=== PATIENT | female | born 1945 | race Caucasian/White ===

== ENCOUNTER 2017-06-03 14:23 | Inpatient (IN) | payer MEDICAID, MEDICARE, SELFPAY ==
[2017-06-03 14:26] VITALS: BP 150/87; PULSE 98; RESP 18; TEMP 37.8; O2SAT 98; BMI 35.2
--- NOTE | 2017-06-03 15:12 | HMH.EDGENADL ---
ED Disposition Clinical Impression: Cellulitis of toe of right foot Chronic renal disease Qualifiers: Chronic kidney disease stage: stage 3 (moderate) Qualified Code(s): N18.3 - Chronic kidney disease, stage 3 (moderate) Disposition: Admitted as Observation Condition on Discharge: Good - Critical Care Critical Care Time: Yes Attestation: On , the high probability of a clinically significant, sudden or life threatening deterioration of the following system(s) required my full and direct attention, intervention and personal management. The time I documented below is in addition to time spent performing reported procedures but includes the following listed in this critical care notation. Total Critical Care Time: 10 Vital system(s) involved:: Circulatory Failure, Renal Failure, Shock (Septic) My critical care processes included: Assessment & monitoring of V/S, Initial and Re-exams, Data Review/Interpretation, Coordinating Care, Medication Orders and management, Documentation Medical Decision Making Vital Signs: 06/03/17 14:26 Temperature 100.1 F H Temperature Source Oral Pulse Rate [Right Radial] 98 H Respiratory Rate 18 Blood Pressure [Right Arm] 150/87 Blood Pressure Mean [Right Arm] 108 Blood Pressure Source [Right Arm] Automatic Cuff Blood Pressure Position [Right Arm] Supine 02 Sat by Pulse Oximetry 98 Oxygen Delivery Method Room Air - Lab Data Lab results reviewed: Yes: I reviewed the patient's lab results. Lab Results 06/03/17 15:25: WBC 8.5, RBC 4.73, Hgb 12.3, Hct 38.8, MCV 81.9, MCH 26.1 L, MCHC 31.8, RDW 14.1, Plt Count 140 L, MPV 8.8, Neut % (Auto) 88.4 H, Lymph % (Auto) 7.4 L, [place] % (Auto) 3.4, Eos % (Auto) 0.5, Baso % (Auto) 0.2, Neut # (Auto) 7.6, Lymph # (Auto) 0.6 L, [place] # (Auto) 0.3, Eos # (Auto) 0.1, Baso # (Auto) 0.0, Total Counted 100, Neutrophils % (Manual) 74, Band Neutrophils % 5.0, Lymphocytes % (Manual) 9 L, Monocytes % (Manual) 11 H, Metamyelocytes % 1.0, Platelet Estimate Normal, RBC Morphology Normal 06/03/17 15:25: Sodium 134 L, Potassium 5.5 H, Chloride 103, Carbon Dioxide 18 L, Anion Gap 18.5 H, BUN 45 H, Creatinine 3.32 H, Estimated Creat Clear 27, Estimated GFR 14 L*, Est GFR ( Amer) 17 L*, Glucose 330 H, Calcium 8.9, Total Bilirubin 0.5, AST 36, ALT 23, Alkaline Phosphatase 257 H, C-Reactive Protein 3.8 H, Total Protein 7.0, Albumin 2.6 L, Globulin 4.4 H, Albumin/Globulin Ratio 0.6 L 06/03/17 15:25: Lactic Acid 1.5 06/03/17 16:18: Influenza Type A Ag Negative, Influenza Type B Ag Positive Result diagrams: 06/03/17 15:25 06/03/17 15:25 Orders (Tests/Meds): ED MEDICATIONS Generic Name Dose Route Start Last Admin Trade Name Freq PRN Reason Stop Dose Admin Miscellaneous 1 each 06/03/17 16:45 Vancomycin Consult Request NOTAPPLIC 07/03/17 16:44 CONSULT PHARMACY PABLO Discontinued Medications Generic Name Dose Route Start Last Admin Trade Name Freq PRN Reason Stop Dose Admin Calcium Gluconate 1,000 mg 06/03/17 16:28 06/03/17 16:50 Calcium Gluconate 1gm/10ml (10%) Vial IVP 06/03/17 16:48 1,000 mg ONCE ONE Administration Calcium Gluconate 1,000 mg/ 60 mls @ 60 mls/hr 06/03/17 16:22 Sodium Chloride IV 06/03/17 16:23 ONCE ONE Ondansetron HCl 4 mg 06/03/17 15:19 06/03/17 15:32 Zofran 4mg/2ml Vial IV 06/03/17 15:20 4 mg ONCE ONE Administration Sodium Polystyrene Sulfonate 15 gm 06/03/17 16:23 06/03/17 16:50 Kayexalate 15gm/60ml Bottle PO 06/03/17 16:24 15 gm ONCE ONE Administration ORDERS Category Date Time Status US extremity LT limited Stat Exams 06/03/17 15:15 Ordered XR foot RT 2V Stat Exams 06/03/17 15:26 Ordered Urinalysis and Microscopic Stat Lab 06/03/17 15:15 Ordered Blood Culture Stat Micro 06/03/17 15:25 Received EKG Request [ECG Request by /Alberto] Stat Y 06/03/17 16:02 Ordered Patient has had a low GFR chronically. GFR was 12 on 03/31/2017. With a BUN of 37 and a creatin
--- NOTE | 2017-06-03 15:15 | ED_ITS ---
ED Disposition Clinical Impression: Cellulitis of toe of right foot Chronic renal disease Qualifiers: Chronic kidney disease stage: stage 3 (moderate) Qualified Code(s): N18.3 - Chronic kidney disease, stage 3 (moderate) Disposition: Admitted as Observation Condition on Discharge: Good - Critical Care Critical Care Time: Yes Attestation: On , the high probability of a clinically significant, sudden or life threatening deterioration of the following system(s) required my full and direct attention, intervention and personal management. The time I documented below is in addition to time spent performing reported procedures but includes the following listed in this critical care notation. Total Critical Care Time: 10 Vital system(s) involved:: Circulatory Failure, Renal Failure, Shock (Septic) My critical care processes included: Assessment & monitoring of V/S, Initial and Re-exams, Data Review/Interpretation, Coordinating Care, Medication Orders and management, Documentation Medical Decision Making Vital Signs: 06/03/17 14:26 Temperature 100.1 F H Temperature Source Oral Pulse Rate [Right Radial] 98 H Respiratory Rate 18 Blood Pressure [Right Arm] 150/87 Blood Pressure Mean [Right Arm] 108 Blood Pressure Source [Right Arm] Automatic Cuff Blood Pressure Position [Right Arm] Supine 02 Sat by Pulse Oximetry 98 Oxygen Delivery Method Room Air - Lab Data Lab results reviewed: Yes: I reviewed the patient's lab results. Lab Results 06/03/17 15:25: WBC 8.5, RBC 4.73, Hgb 12.3, Hct 38.8, MCV 81.9, MCH 26.1 L, MCHC 31.8, RDW 14.1, Plt Count 140 L, MPV 8.8, Neut % (Auto) 88.4 H, Lymph % ( Auto) 7.4 L, [place] % (Auto) 3.4, Eos % (Auto) 0.5, Baso % (Auto) 0.2, Neut # ( Auto) 7.6, Lymph # (Auto) 0.6 L, [place] # (Auto) 0.3, Eos # (Auto) 0.1, Baso # ( Auto) 0.0, Total Counted 100, Neutrophils % (Manual) 74, Band Neutrophils % 5.0 , Lymphocytes % (Manual) 9 L, Monocytes % (Manual) 11 H, Metamyelocytes % 1.0, Platelet Estimate Normal, RBC Morphology Normal 06/03/17 15:25: Sodium 134 L, Potassium 5.5 H, Chloride 103, Carbon Dioxide 18 L , Anion Gap 18.5 H, BUN 45 H, Creatinine 3.32 H, Estimated Creat Clear 27, Estimated GFR 14 L*, Est GFR ( Amer) 17 L*, Glucose 330 H, Calcium 8.9, Total Bilirubin 0.5, AST 36, ALT 23, Alkaline Phosphatase 257 H, C-Reactive Protein 3.8 H, Total Protein 7.0, Albumin 2.6 L, Globulin 4.4 H, Albumin/ Globulin Ratio 0.6 L 06/03/17 15:25: Lactic Acid 1.5 06/03/17 16:18: Influenza Type A Ag Negative, Influenza Type B Ag Positive Result diagrams: 06/03/17 15:25 06/03/17 15:25 Orders (Tests/Meds): ED MEDICATIONS Generic Name Dose Route Start Last Admin Trade Name Freq PRN Reason Stop Dose Admin Miscellaneous 1 each 06/03/17 16:45 Vancomycin Consult Request NOTAPPLIC 07/03/17 16:44 CONSULT PHARMACY PABLO Discontinued Medications Generic Name Dose Route Start Last Admin Trade Name Freq PRN Reason Stop Dose Admin Calcium Gluconate 1,000 mg 06/03/17 16:28 06/03/17 16:50 Calcium Gluconate 1gm/10ml (10%) Vial IVP 06/03/17 16:48 1,000 mg ONCE ONE Administration Calcium Gluconate 1,000 mg/ 60 mls @ 60 mls/hr 06/03/17 16:22 Sodium Chloride IV 06/03/17 16:23 ONCE ONE Ondansetron HCl 4 mg 06/03/17 15:19 06/03/17 15:32 Zofran 4mg/2ml Vial IV 06/03/17 15:20 4 mg ONCE ONE Admini
--- NOTE | 2017-06-03 15:26 | NVE_ITS ---
Venous Exam Indications: 729.5 Pain in limb. IMPRESSIONS 1. There is no evidence of significant Reflux. 2. No evidence of deep or superficial vein thrombosis involving the right lower extremity and left lower extremity. Common femorals not identified due to patients body habitus. Complete lower extremity venous duplex evaluation. Doppler flow study including spectral analysis, color and goodrich scale imaging. Location: Vascular laboratory. Patient status: Emergency department. Tables: Venous flow and imaging: + + + + + Location Overall Flow properties Comments + + + + + Right common femoral Not visualized + + + + + Right saphenofemoral Not junction visualized + + + + + Right profunda Not femoral visualized + + + + + Right femoral Patent Normal phasicity; spontaneous; normal augmentation; compressible; no reflux + + + + + Right greater Patent Normal phasicity; saphenous spontaneous; normal augmentation; compressible + + + + + Right popliteal Patent Normal phasicity; spontaneous; normal augmentation; compressible + + + + + Right posterior Patent Compressible only portion tibial visualized + + + + + Right peroneal Patent Compressible only portion visualized + + + + + Right gastrocnemius Patent Compressible + + + + + Right soleal Patent Compressible + + + + + Left common femoral Not visualized + + + + + Left saphenofemoral Not junction visualized
--- NOTE | 2017-06-03 15:26 | XR_ITS ---
XR foot RT 2V HISTORY: Right foot pain and erythema ITS.REASON: pain, erythema ORDERING PHYSICIAN: Willie Avalos MD PATIENT AGE: 72 years COMPARISON: None FINDINGS: There is flexion deformity of the first through fifth toes. There is mild lateral subluxation of the distal phalanx of the great toe by approximately 5 mm. A curvilinear calcific density is present at the distal and medial aspect of the proximal phalanx of the great toe consistent with an old avulsion injury. There is a small linear metallic foreign body which measures 5 mm along the medial aspect of the foot within the subcutaneous soft tissues. This is medial to the medial cuneiform. Soft tissue swelling involves the dorsal aspect of the midfoot. There is pes planus. IMPRESSION: 1. Hammertoe deformity of the toes with mild lateral subluxation of the distal phalanx of the great toe 2. Small linear metallic foreign body along the medial aspect of the midfoot. 3. Soft tissue swelling along the dorsal aspect of the midfoot. 4. Pes planus
[2017-06-03 15:39] LABS: Basophils % 0.2 % (0.1-2.0); Eosinophils # 0.1 K/mm3 (0.0-0.4); Eosinophils % 0.5 % (0.1-12.0); Hematocrit 38.8 % (37.0-47.0); Hemoglobin 12.3 g/dL (12.2-16.2); Lymphocytes # 0.6 K/mm3 (0.7-4.5); Lymphocytes % 7.4 K/mm3 (10-50); Mean Corpuscular HGB Conc 31.8 g/dL (31.8-35.4); Mean Corpuscular Hemoglobin 26.1 pg (27.0-31.2); Mean Corpuscular Volume 81.9 fl (81-99); Mean Platelet Volume 8.8 fl (7.4-10.4); Monocytes # 0.3 K/mm3 (0.1-1.0); Monocytes % 3.4 % (1.7-9.3); Neutrophils # 7.6 K/mm3 (1.8-7.8); Neutrophils % 88.4 % (37.0-80.0); Platelet Count 140 K/mm3 (142-424); Red Blood Count 4.73 M/mm3 (4.20-5.40); Red Cell Distribution Width 14.1 % (11.5-17.5); White Blood Count 8.5 K/mm3 (4.8-10.8)
[2017-06-03 15:41] LABS: MANUAL DIFFERENTIAL MANUAL DIFFERENTIAL (MANUAL DIFF)
[2017-06-03 15:52] LABS: Alanine Aminotransferase 23 U/L (12-78); Albumin Level 2.6 gm/dL (3.4-5.0); Albumin/Globulin Ratio 0.6 (1.1-1.8); Alkaline Phosphatase 257 U/L (46-116); Anion Gap 18.5 mEq/L (5-15); Bilirubin,Total 0.5 mg/dL (0.2-1.0); Blood Urea Nitrogen 45 mg/dL (7-18); C-Reactive Protein 3.8 mg/L (0.0-0.9); Calcium 8.9 mg/dL (8.5-10.1); Carbon Dioxide 18 mmol/L (21.0-32.0); Chloride 103 mmol/L (98-107); Creatinine Clearance Estimated 27 mL/min (0-300); Creatinine,Serum 3.32 mg/dL (0.55-1.02); Estimated Glomerular Filt Rate 14 ml/min (>60); GFR (African American) 17 ML/MIN (>60); Globulin 4.4 gm/dl (1.3-3.2); Glucose 330 mg/dL (74-106); Sodium 134 mmol/L (136-145)
[2017-06-03 15:54] LABS: Aspartate Amino Transferase 36 U/L (15-37)
[2017-06-03 15:55] LABS: Potassium 5.5 mmoL/L (3.5-5.1)
[2017-06-03 16:18] LABS: Lymphocytes % 9 % (10-50); Monocytes % 11 % (2-9); Neutrophils % 74 % (42-76); Total Cells Counted 100
[2017-06-03 16:19] LABS: Platelet Estimate Normal; RBC Morphology Normal
[2017-06-03 16:26] LABS: Lactic Acid 1.5 mmol/L (0.4-2.0)
--- NOTE | 2017-06-03 16:28 | PC.NURSE ---
INFULENZA SWAB OBTAINED AND SENT TO LAB
--- NOTE | 2017-06-03 16:57 | CT_ITS ---
CT abdomen pelvis wo con CLINICAL INDICATION: Abdominal pain with nausea and vomiting ITS.REASON: ABD PAIN ORDERING PHYSICIAN: Willie Avalos MD PATIENT AGE: 72 years COMPARISON: 01/05/2017 TECHNIQUE: Axial images obtained with sagittal and coronal reformats. PROCEDURE: Oral Contrast: None IV Contrast: None . FINDINGS: Lower thorax: No acute finding ABDOMEN: Liver: No masses or biliary dilatation. Gallbladder: Prior cholecystectomy with pneumobilia Pancreas: No change coarse calcifications in the pancreatic head versus calcified peripancreatic lymph nodes Spleen: Unremarkable. Adrenals: Unremarkable Kidneys/ureters: Focal calcification in the lower pole the right kidney unchanged. No change exophytic isodensity in the mid polar region of the left kidney probably related to renal cyst. Stomach bowel: Sigmoid diverticulosis. No evidence of diverticulitis Appendix: No evidence of appendicitis. PELVIS: Reproductive: Unremarkable Bladder: There is gas in the urinary bladder. This could be due to recent catheterization versus gas-forming infection or fistula. ABDOMEN & PELVIS: Peritoneum: No abnormal fluid collections. No obvious inflammatory changes. No free air. Lymph nodes: No enlarged lymph nodes apparent. Vasculature: No evidence of abdominal aortic aneurysm. No retroperitoneal hemorrhage evident. Bones: No acute fracture IMPRESSION: 1. Nonspecific air within urinary bladder. This could be due to recent catheterization or fistula or infection 2. Sigmoid diverticulosis. No diverticulitis. 3. Other nonacute findings as described above.
[2017-06-03 17:17] VITALS: BP 140/84; PULSE 90; RESP 18
[2017-06-03 17:58] VITALS: BP 172/86; PULSE 102; RESP 18; TEMP 38.3; O2SAT 95; BMI 31.7
--- NOTE | 2017-06-03 17:59 | PC.NURSE ---
pt has edema to both legs Ford's not tolerated at this time
[2017-06-03 18:01] VITALS: O2SAT 96
[2017-06-03 20:54] VITALS: BP 170/100; PULSE 109; RESP 18; TEMP 37.3; O2SAT 98
--- NOTE | 2017-06-03 20:56 | PC.NURSE ---
BLOOD PRESSURE OF 170/100 REPORTED TO ESTEBAN. PATIENT REFUSED TEDS AND NON SKID FOOTWEAR DUE TO CELLULITES.
[2017-06-03 21:18] LABS: POC Glucose,Bedside 397 mg/dL
--- NOTE | 2017-06-03 22:28 | PC.NURSE ---
NOTIFIED DR. PALMA VIA PHONE OF FSBS [phone] WITH NO INSULIN ORDERS. STATED OK . NO NEW ORDERS RECEIVED. NOTIFIED AT 675.
[2017-06-04] VITALS (19 sets, daily range): BP systolic 84–159; BP diastolic 38–77; PULSE 56–99; RESP 16–23; TEMP 36.6–37.2; O2SAT 95–99; BMI 31.8
--- NOTE | 2017-06-04 05:05 | PC.NURSE ---
PT HAS SLEPT. NO COMPLAINTS OF PAIN. RIGHT LEG WITH SWELLING AND REDNESS NOTED. NO SEEPING AT THIS TIME. PT NEEDS ASSISTANCE OF ONE WHEN OOB. PT NPO FOR CONSULT THIS AM.
[2017-06-04 06:44] LABS: Basophils % 0.2 % (0.1-2.0); Eosinophils % 0.4 % (0.1-12.0); Lymphocytes # 0.7 K/mm3 (0.7-4.5); Mean Platelet Volume 9.1 fl (7.4-10.4); Monocytes # 0.4 K/mm3 (0.1-1.0); Red Cell Distribution Width 14.2 % (11.5-17.5)
[2017-06-04 06:44] LABS: POC Glucose,Bedside 367 mg/dL
[2017-06-04 06:52] LABS: Hematocrit 33.2 % (37.0-47.0); Lymphocytes % 11.1 K/mm3 (10-50); Mean Corpuscular HGB Conc 32.5 g/dL (31.8-35.4); Mean Corpuscular Hemoglobin 26.8 pg (27.0-31.2); Mean Corpuscular Volume 82.5 fl (81-99); Monocytes % 5.4 % (1.7-9.3); Neutrophils # 5.6 K/mm3 (1.8-7.8); Neutrophils % 82.9 % (37.0-80.0); Platelet Count 146 K/mm3 (142-424); Red Blood Count 4.02 M/mm3 (4.20-5.40); White Blood Count 6.7 K/mm3 (4.8-10.8)
[2017-06-04 07:02] LABS: Hemoglobin 10.8 g/dL (12.2-16.2)
[2017-06-04 07:15] LABS: Anion Gap 16.6 mEq/L (5-15); Blood Urea Nitrogen 49 mg/dL (7-18); Carbon Dioxide 17 mmol/L (21.0-32.0); Chloride 106 mmol/L (98-107); Creatinine Clearance Estimated 21 mL/min (0-300); Estimated Glomerular Filt Rate 12 ml/min (>60); GFR (African American) 14 ML/MIN (>60); Magnesium 1.7 mg/dL (1.4-2.2); Phosphorous 3.8 mg/dL (2.4-4.9); Potassium 4.6 mmoL/L (3.5-5.1); Sodium 135 mmol/L (136-145)
[2017-06-04 07:18] LABS: Creatinine,Serum 3.76 mg/dL (0.55-1.02); Glucose 405 mg/dL (74-106)
--- NOTE | 2017-06-04 08:04 | PC.NURSE ---
0804 - Call placed to Dr Avalos regarding critical labs. Glucose 405, Creatnine 3.76. Spoke with Minda.
--- NOTE | 2017-06-04 10:21 | P.CONPHA_ITS ---
- Pharmacy Consult Date: 06/04/17 Time: 10:19 Referring provider: DR. PALMA Reason for Consult:: VANCOMYCIN DOSING Allergies and ADEs:: Allergies Allergy/AdvReac Type Severity Reaction Status Date / Time Penicillins [PENICILLINS] Allergy Intermediate I-RASH Verified 06/03/17 15:29 Sulfa (Sulfonamide Allergy Unknown Verified 06/03/17 15:29 Antibiotics) [SULFA (SULFONAMIDE ANTIBIOTICS)] Home Medications:: Home Medications Medication Instructions Recorded Confirmed Type Bisoprolol Fumarate 10 mg PO DAILY 06/03/17 06/03/17 History Carvedilol [Carvedilol 25mg Tab] 25 mg PO BID 06/03/17 06/03/17 History Clopidogrel Bisulfate [Clopidogrel 75 mg PO DAILY 06/03/17 06/03/17 History 75mg Tab] Famotidine [Acid Controller] 20 mg PO BID 06/03/17 06/03/17 History Gabapentin [Gabapentin 400mg Cap] 400 mg PO TID 06/03/17 06/03/17 History Levothyroxine Sodium 88 mcg PO DAILY 06/03/17 06/04/17 History [Levothyroxine 88mcg (0.088mg) Tab] Simvastatin 20 mg PO HS 06/03/17 06/03/17 History Height: 1.75 m Weight: 97.551 kg Laboratory Results:: Laboratory Results - last 24 hr 06/03/17 20:55: POC Glucose 397 06/04/17 06:30: WBC 6.7, RBC 4.02 L, Hgb 10.8 L D, Hct 33.2 L, MCV 82.5, MCH 26.8 L, MCHC 32.5, RDW 14.2, Plt Count 146, MPV 9.1, Neut % (Auto) 82.9 H, Lymph % (Auto) 11.1, [place] % (Auto) 5.4, Eos % (Auto) 0.4, Baso % (Auto) 0.2, Neut # (Auto) 5.6, Lymph # (Auto) 0.7, [place] # (Auto) 0.4, Eos # (Auto) 0.0, Baso # (Auto) 0.0 06/04/17 06:30: Sodium 135 L, Potassium 4.6, Chloride 106, Carbon Dioxide 17 L, Anion Gap 16.6 H, BUN 49 H, Creatinine 3.76 H, Estimated Creat Clear 21, Estimated GFR 12 L*, Est GFR ( Amer) 14 L*, Glucose 405 H* D, Phosphorus 3.8, Magnesium 1.7 06/04/17 06:31: POC Glucose 367 Medical History: Reports:: Diabetes Mellitus Type 2, Hyperlipidemia, Hypertension, Myocardial Infarction Denies:: Cancer, Diabetes Mellitus Type 1, MRSA Assessment and Plan (1) Cellulitis of toe of right foot Current visit: Yes Status: Acute Category: Medical Code(s): L03.031 - Cellulitis of right toe - Assessment and plan all Dx Assessment and Plan for all problems:: BASED ON PATIENT FACTORS, RECOMMEND VANCOMYCIN 2 GM IV ONCE, FOLLOWED BY VANCOMYCIN 1500 MG IV Q48H. PHARMACY WILL MONITOR DAILY AND ADJUST APPROPRIATE.
--- NOTE | 2017-06-04 10:53 | PC.NURSE ---
Continuation of skin assessment: distal 1/2 of (R) calf with increased warmth and redness. (R) 2nd toe with redness and dry black tissue on distal end of toe. No drng noted from wound.
--- NOTE | 2017-06-04 11:33 | XR_ITS ---
XR chest portable HISTORY: ITS.REASON: pre-op ORDERING PHYSICIAN: Willie Avalos MD PATIENT AGE: 72 years COMPARISON: None available FINDINGS: There is mild cardiomegaly without failure. Coronary artery calcification or stent noted.. There is increased density right infrahilar region may be due to vascular crowding, atelectasis, or infiltrate.. No acute bony abnormalities. IMPRESSION: 1. Mild cardiomegaly. 2. Summation artifact versus patchy atelectasis or infiltrate in the right infrahilar region
--- NOTE | 2017-06-04 11:43 | US_ITS ---
US Arterial Ankle Brachial Ind INDICATION: Hypertension, diabetes, gangrene right second and fourth toes ORDERING PHYSICIAN: Willie Avalos MD PATIENT AGE: 72 years TECHNIQUE: Segmental pressures obtained of both right and left leg. These are compared to brachial blood pressure to yield index at each level sampled including summary TIERNEY. The data sheets from the procedure are available in PACS FINDINGS Rest study only performed today No prior studies available for comparison. Blood pressures reported are in millimeters mercury. RIGHT LEG TIERNEY = 1.3. Right TBI 1.0. Brachial BP: 80 Thigh BP: 129 Calf BP: 108 Ankle PT: 112 Ankle DP : 111 Digit =85 LEFT LEG TIERNEY = 1.4. Left TBI 0.9 Brachial BPD: 84 Thigh BP: 145 Calf BP: 120 Ankle PT:118 Ankle DP: 108 Digit = 76 Pulses and waveforms: Normal IMPRESSION: 1. Elevated bilateral TIERNEY consistent with abnormal vessel hardening from peripheral vascular disease 2. Normal TBIs on both sides
[2017-06-04 11:57] LABS: POC Glucose,Bedside 258 mg/dL
--- NOTE | 2017-06-04 12:06 | HMH.ORTHOCON ---
*Admission Date: 06/03/17 *Chief complaint: Right 2nd toe infection, cellulitis *History of present illness: Ms. Beltran is a 72-year-old diabetic female who presented yesterday to the ER with complaints of nausea and right foot swelling. She also complained of pain to the right calf. She noticed right 2nd toe redness and drainage x 3 weeks. She admits to not taking care of herself . She states her blood sugars are in the 400-600s at home. She has not liborio seeing her PCP, Dr. Avalos on a regular basis and states she does not take insulin in evenings/night because of being afraid to go into a DM coma during her sleep and not wake up . Patient has a history of right foot fractures. She was having treatment by Dr. Mcintosh. From what it sounds like it sounds like she was describing a Charcot foot episode several years ago. She had redness and swelling and then multiple foot fractures . She did not have surgery to have it addressed. She denies wearing a [place] boot or DM shoes. Review of Systems - Constitutional Reports anorexia, Reports fatigue - Eyes Denies change in vision - ENT Reports sore throat - *Cardiovascular Reports shortness of breath, Reports foot swelling - *Respiratory Reports chest congestion - *Gastrointestinal Reports nausea, Denies vomiting - *Musculoskeletal Reports deformity (right foot larger than left, rockerbottom), Reports tingling - *Neurologic Reports tingling/numbness/burning sensations, Denies confusion, Denies loss of vision - Psychiatric Denies behavioral changes - Endocrine Reports increased thirst - Hematologic/Lymphatic Reports easy bruising - Allergic/Immunologic Reports seasonal runny nose [facility] History Medical History: Reports:: Diabetes Mellitus Type 2, Hyperlipidemia, Hypertension, Myocardial Infarction Denies:: Cancer, Diabetes Mellitus Type 1, MRSA Other Medical History: Reports: Arthritis, Hypothyroidism Other Surgeries: Yes: Tubal Ligation. No: Pacemaker Amputation: No Fractures: No - *Social History Educational Level: Attended Grade School Smoking Status: Never smoker # Packs/Day (cigarettes): 0 #Yrs smoked (if former smoker): 0 Alcohol Intake: never Occupational Status: unemployed Housing: house Household Members: significant other - Psychiatric History Expresses thoughts of harming self/others: None Suicide Plan Description: No Plan *Family Hx:: Cancer, Diabetes, Heart Attack, Hyperlipidemia, Hypertension Meds Home Medications Medication Instructions Recorded Confirmed Type Bisoprolol Fumarate 10 mg PO DAILY 06/03/17 06/03/17 History Carvedilol [Carvedilol 25mg Tab] 25 mg PO BID 06/03/17 06/03/17 History Clopidogrel Bisulfate [Clopidogrel 75 mg PO DAILY 06/03/17 06/03/17 History 75mg Tab] Famotidine [Acid Controller] 20 mg PO BID 06/03/17 06/03/17 History Gabapentin [Gabapentin 400mg Cap] 400 mg PO TID 06/03/17 06/03/17 History Levothyroxine Sodium 88 mcg PO DAILY 06/03/17 06/04/17 History [Levothyroxine 88mcg (0.088mg) Tab] Simvastatin 20 mg PO HS 06/03/17 06/03/17 History Allergies Allergy/AdvReac Type Severity Reaction Status Date / Time Penicillins [PENICILLINS] Allergy Intermediate I-RASH Verified 06/03/17 15:29 Sulfa (Sulfonamide Allergy Unknown Verified 06/03/17 15:29 Antibiotics) [SULFA (SULFONAMIDE ANTIBIOTICS)] Exam Vital signs and Labs for Last 24 Hours: Temp Pulse Resp BP Pulse Ox 98.2 F 71 18 110/59 95 06/04/17 08:00 06/04/17 08:00 06/04/17 08:00 06/04/17 08:00 06/04/17 08:00 Laboratory Results - last 24 hr 06/03/17 20:55: POC Glucose 397 06/04/17 06:30: WBC 6.7, RBC 4.02 L, Hgb 10.8 L D, Hct 33.2 L, MCV 82.5, MCH 26.8 L, MCHC 32.5, RDW 14.2, Plt Count 146, MPV 9.1, Neut % (Auto) 82.9 H, Lymph % (Auto) 11.1, [place] % (Auto) 5.4, Eos % (Auto) 0.4, Baso % (Auto) 0.2, Neut # (Auto) 5.6, Lymph # (Auto) 0.7, [place] # (Auto) 0.4, Eos # (Auto) 0.0, Baso # (Auto) 0.0 06/04/17 06:3
--- NOTE | 2017-06-04 12:10 | P.CONS_ITS ---
*Admission Date: 06/03/17 *Chief complaint: Right 2nd toe infection, cellulitis *History of present illness: Ms. Beltran is a 72-year-old diabetic female who presented yesterday to the ER with complaints of nausea and right foot swelling. She also complained of pain to the right calf. She noticed right 2nd toe redness and drainage x 3 weeks. She admits to not taking care of herself . She states her blood sugars are in the 400-600s at home. She has not liborio seeing her PCP, Dr. Avalos on a regular basis and states she does not take insulin in evenings/night because of being afraid to go into a DM coma during her sleep and not wake up . Patient has a history of right foot fractures. She was having treatment by Dr. Mcintosh. From what it sounds like it sounds like she was describing a Charcot foot episode several years ago. She had redness and swelling and then multiple foot fractures . She did not have surgery to have it addressed. She denies wearing a [place] boot or DM shoes. Review of Systems - Constitutional Reports anorexia, Reports fatigue - Eyes Denies change in vision - ENT Reports sore throat - *Cardiovascular Reports shortness of breath, Reports foot swelling - *Respiratory Reports chest congestion - *Gastrointestinal Reports nausea, Denies vomiting - *Musculoskeletal Reports deformity (right foot larger than left, rockerbottom), Reports tingling - *Neurologic Reports tingling/numbness/burning sensations, Denies confusion, Denies loss of vision - Psychiatric Denies behavioral changes - Endocrine Reports increased thirst - Hematologic/Lymphatic Reports easy bruising - Allergic/Immunologic Reports seasonal runny nose [facility] History Medical History: Reports:: Diabetes Mellitus Type 2, Hyperlipidemia, Hypertension, Myocardial Infarction Denies:: Cancer, Diabetes Mellitus Type 1, MRSA Other Medical History: Reports: Arthritis, Hypothyroidism Other Surgeries: Yes: Tubal Ligation. No: Pacemaker Amputation: No Fractures: No - *Social History Educational Level: Attended Grade School Smoking Status: Never smoker # Packs/Day (cigarettes): 0 #Yrs smoked (if former smoker): 0 Alcohol Intake: never Occupational Status: unemployed Housing: house Household Members: significant other - Psychiatric History Expresses thoughts of harming self/others: None Suicide Plan Description: No Plan *Family Hx:: Cancer, Diabetes, Heart Attack, Hyperlipidemia, Hypertension Meds Home Medications Medication Instructions Recorded Confirmed Type Bisoprolol Fumarate 10 mg PO DAILY 06/03/17 06/03/17 History Carvedilol [Carvedilol 25mg Tab] 25 mg PO BID 06/03/17 06/03/17 History Clopidogrel Bisulfate [Clopidogrel 75 mg PO DAILY 06/03/17 06/03/17 History 75mg Tab] Famotidine [Acid Controller] 20 mg PO BID 06/03/17 06/03/17 History Gabapentin [Gabapentin 400mg Cap] 400 mg PO TID 06/03/17 06/03/17 History Levothyroxine Sodium 88 mcg PO DAILY 06/03/17 06/04/17 History [Levothyroxine 88mcg (0.088mg) Tab] Simvastatin 20 mg PO HS 06/03/17 06/03/17 History Allergies Allergy/AdvReac Type Severity Reaction Status Date / Time Penicillins [PENICILLINS] Allergy Intermediate I-RASH Verified 06/03/17 15:29 Sulfa (Sulfonamide Allergy Unknown Verified 06/03/17 15:29 Antibiotics) [SULFA (SULFONAMIDE ANTIBIOTICS)] Exam Vital signs and Labs for Last 24 Hours:
--- NOTE | 2017-06-04 12:38 | PC.NURSE ---
1238 - Pt transported off floor via bed accompanied by preop staff. Pt scheduled for surgery today on (R) foot.
--- NOTE | 2017-06-04 13:50 | PC.NURSE ---
Patient is off floor at this time, for procedure.
--- NOTE | 2017-06-04 14:16 | HMH.OPNOTE ---
Date of procedure: 06/04/17 Pre-op Diagnosis:: Right 2nd toe infection (osteomyelitis), cellulitis Post-op diagnosis:: same Procedure performed:: Right second toe partial amputation Surgeon:: Jodie Lee DPM RECORD CLERK SALESPERSON:: Jonathon Law Anesthesia: MAC Estimated blood loss (mL): 5 Clinical Note:: Ms. Beltran is a 72-year-old diabetic female who presented yesterday to the ER with complaints of nausea and right foot swelling. She also complained of pain to the right calf. She noticed right 2nd toe redness and drainage x 3 weeks. She admits to not taking care of herself . She states her blood sugars are in the 400-600s at home. She has not liborio seeing her PCP, Dr. Avalos on a regular basis and states she does not take insulin in evenings/night because of being afraid to go into a DM coma during her sleep and not wake up . Patient has a history of right foot fractures. She was having treatment by Dr. Mcintosh. From what it sounds like it sounds like she was describing a Charcot foot episode several years ago. She had redness and swelling and then multiple foot fractures . She did not have surgery to have it addressed. She denies wearing a [place] boot or DM shoes. X-rays of the right foot were taken, indicating infection of the right foot, possible 2nd distal phalanx osteomyelitis. TIERNEY/toe pressures: R 1.33, L 1.4 and TBI R 1.01, L 0.9. After a long discussion with the patient in regards to the conservative vs. surgical treatment for the deformity, I recommend to proceed with surgery because they have ascending cellulitis, pain, malodor and purulence drainage with worsening symptoms. The patient has been instructed on the planned procedure, all the risks vs. benefits of the procedure to include bleeding, further or recurrent infection, nerve and blood vessel damage, need for further surgery, delay in healing of soft tissue, prolonged pain and recovery, residual deformity, prolonged swelling, CRPS/RSD, dvt, and anesthetic complications. No guarantees were given. All questions fully answered. The patient verbalized understanding and agreed to proceed with surgery. Consent was obtained. Discussed with anesthesia and Dr. Avalos. Pre-op Chest X-ray and EKG ordered. Plan: right 2nd toe amputation Operative findings:: Right distal and middle phalanx osteomyelitis Purulent drainage from distal right 2nd toe Operative note:: On this date and time patient was deemed an appropriate surgical candidate. With informed consent signed, the patient was taken to the operating theater. The patient was positioned supine. MAC anesthesia was induced with local right toe/foot block of 25cc of 0.5% marcaine plain. No tourniquet was utilized. Right 2nd Digit Partial Amputation: The right foot was prepped and draped in the normal sterile fashion. Attention was directed to the 2nd toe, where edema and erythema was noted. There was 3cc of purulence noted at the distal opening, which was cultured. A fishmouth incision was mapped out. Utilizing a 15 blade, dissection was carried full thickness to bone. The middle phalanx was disarticulated from the proximal phalanx immediate improvement in redness and swelling noted. The wound was explored, no deep purulence noted. No necrotic tissue. The middle phalanx was split into 2 pieces, one sent for bone culture and the other bone pathology. The wound was flushed with bactricin irrigation. Minimal bleeding noted. The wound was reapproximated. 4-0 Nylon was used to close the skin in an interrupted simple suture fashion. The wound was cleansed. Betadine was applied followed by a dry sterile dressing. The patient was awoken from anesthesia and transferred to recovery with vital signs stable and neurovascular status intact. Materials: 4-0 Nylon Specimens (all right foot): 2nd toe wound culture 2nd toe (middle phalanx) bone culture 2nd toe (middle phalanx) bone biopsy/path Discharge/Plan: Transfer back to floor. [facility]
--- NOTE | 2017-06-04 14:19 | XR_ITS ---
XR foot RT min 3V HISTORY: ITS.REASON: right second toe amputation ORDERING PHYSICIAN: Willie Avalos MD PATIENT AGE: 72 years COMPARISON: 06/03/2017 FINDINGS: There is been interval amputation at the PIP joint of the second digit. Moderate overlying image artifact noted. Fine detail the remaining bones. There is valgus angulation of the distal phalanx of the great toe with mild lateral subluxation of the distal phalanx x 5 mm and a small curvilinear calcific density is seen distal and medial aspect of the proximal phalanx of the great toe. Small foreign body once again noted in the soft tissues of the medial foot. IMPRESSION: Status post amputation at the PIP joint of the second toe. No other changes evident
--- NOTE | 2017-06-04 14:20 | P.PN_ITS ---
[facility] Anesthesia Checklist - Structural Data Admitted From: Inpatient Planned Operative Procedure/s: Right 2nd Toe Amputation Consent for Planned Operative Procedure(s) Verified: Yes Verified Documents: Surgical Consent, History and Physical - NPO Status Verified Time NPO: 00:00 - Additional verifications Anesthesia Reactions: No - Airway Assessment C-Spine Mobility Assessed: Yes (MP2) TMJ Mobility Assessed: Yes Dentition: Edentulous - Anesthesia Plan Anesthesia Risk discussed: Yes Anesthesia Plan: Verified ASA Class: III Anesthesia Type: MAC [facility] Anesthesia HX I have reviewed the patient's past medical history: Yes Medical History: Reports:: Chronic Obstructive Pulmonary Disease (COPD), Coronary Artery Disease, Diabetes Mellitus Type 2, Hyperlipidemia, Hypertension , Myocardial Infarction, Renal Disease Denies:: Cancer, Diabetes Mellitus Type 1, MRSA Other Medical History: Reports: Arthritis, Hypothyroidism Other Surgeries: Yes: Hysterectomy-Partial, Tubal Ligation. No: Pacemaker Amputation: No Fractures: No *Family Hx:: Cancer, Diabetes, Heart Attack, Hyperlipidemia, Hypertension
--- NOTE | 2017-06-04 14:21 | P.PN_ITS ---
[facility] Anesthesia Record Part I Intake, IV Amount: 200 Estimated blood loss (mL): 0 Urine output (mL): 0 Blood Pressure: 113/46 SaO2: 97 Pulse Rate: 57 Respiratory Rate: 16 Temperature: 97.9 F Patient is:: Awake, Stable Stable to PACU at:: 14:15
--- NOTE | 2017-06-04 14:21 | HMH.ANESII ---
[facility] Anesthesia Record Part II Discharge Time: 14:45 Destination: 2nd floor PACU nurse assessment reviewed?: Yes Patient Condition:: Good Anesthesia Complications:: None
--- NOTE | 2017-06-04 14:44 | PC.NURSE ---
Interdisciplinary team meeting with case management, dietary, nursing, and infection control. Discussed plan of care and discharge plans.
--- NOTE | 2017-06-04 14:46 | PC.NURSE ---
Received report from Heather Diggs from the OR.
--- NOTE | 2017-06-04 15:08 | PC.NURSE ---
Received pt via bed from recovery. Pt A&Ox3 in no acute distress. IV patent to (L) FA infusing NS. (R) ant lung sounds with rhochi. (R) post lung sounds /c exp. wheezing. (L) lung almodovar CTA. Heart rate reg. Abd soft and non-tender /c hypoactive BS. Drsg to (R) foot C/D/I. Pt denies pain. Moist productive cough with sm amount of white thick sputum. Will continue to monitor.
--- NOTE | 2017-06-04 15:52 | PC.NURSE ---
Pt tolerating PO fluids and jello. No c/o verbalized at this time.
[2017-06-04 17:05] LABS: POC Glucose,Bedside 273 mg/dL
--- NOTE | 2017-06-04 18:44 | SUR.PHASEI ---
REPORT GIVEN TO CYNTHIA QUAN RN ON SECOND FLOOR AT 1443.
--- NOTE | 2017-06-04 20:13 | HMH.HP ---
*Admission Date: 06/03/17 *Chief complaint: infected toe *History of present illness: Ms. Beltran is a 72-year-old diabetic female who presented yesterday to the ER with complaints of nausea and right foot swelling. She also complained of pain to the right calf. She noticed right 2nd toe redness and drainage x 3 weeks. She admits to not taking care of herself . She states her blood sugars are in the 400-600s at home. She has not liborio seeing her PCP, Dr. Avalos on a regular basis and states she does not take insulin in evenings/night because of being afraid to go into a DM coma during her sleep and not wake up . Patient has a history of right foot fractures. She was having treatment by Dr. Mcintosh. From what it sounds like it sounds like she was describing a Charcot foot episode several years ago. She had redness and swelling and then multiple foot fractures . She did not have surgery to have it addressed. She denies wearing a [place] boot or DM shoes. [facility] History I have reviewed the patient's past medical history: Yes Medical History: Reports:: Chronic Obstructive Pulmonary Disease (COPD), Coronary Artery Disease, Diabetes Mellitus Type 2, Hyperlipidemia, Hypertension, Myocardial Infarction, Renal Disease Denies:: Cancer, Diabetes Mellitus Type 1, MRSA Other Medical History: Reports: Arthritis, Hypothyroidism Other Surgeries: Yes: Hysterectomy-Partial, Tubal Ligation. No: Pacemaker Amputation: No Fractures: No - *Social History Educational Level: Attended Grade School Smoking Status: Never smoker # Packs/Day (cigarettes): 0 #Yrs smoked (if former smoker): 0 Alcohol Intake: never Occupational Status: unemployed Housing: house Household Members: significant other - Psychiatric History Expresses thoughts of harming self/others: None Suicide Plan Description: No Plan *Family Hx:: Cancer, Diabetes, Heart Attack, Hyperlipidemia, Hypertension Review of Systems - Review of Systems Review of systems:: pertinent systems reviewed and negative unless documented below - Constitutional Reports weakness, Denies fever(s) - Eyes Denies change in vision - ENT Denies sore throat - *Cardiovascular Denies chest pain - *Respiratory Denies cough - *Gastrointestinal Reports nausea - *Musculoskeletal Reports joint pain, Reports joint swelling, Reports other (infected second toe ) - Integumentary/Breasts Reports other (infected toe ), Denies rash - *Neurologic Reports tingling/numbness/burning sensations, Reports tingling, Denies behavioral changes, Denies confusion, Denies loss of vision - Psychiatric Denies confusion Meds Home Medications Medication Instructions Recorded Confirmed Type Bisoprolol Fumarate 10 mg PO DAILY 06/03/17 06/03/17 History Carvedilol [Carvedilol 25mg Tab] 25 mg PO BID 06/03/17 06/03/17 History Clopidogrel Bisulfate [Clopidogrel 75 mg PO DAILY 06/03/17 06/03/17 History 75mg Tab] Famotidine [Acid Controller] 20 mg PO BID 06/03/17 06/03/17 History Gabapentin [Gabapentin 400mg Cap] 400 mg PO TID 06/03/17 06/03/17 History Levothyroxine Sodium 88 mcg PO DAILY 06/03/17 06/04/17 History [Levothyroxine 88mcg (0.088mg) Tab] Simvastatin 20 mg PO HS 06/03/17 06/03/17 History Allergies Allergy/AdvReac Type Severity Reaction Status Date / Time Penicillins [PENICILLINS] Allergy Intermediate I-RASH Verified 06/03/17 15:29 Sulfa (Sulfonamide Allergy Unknown Verified 06/03/17 15:29 Antibiotics) [SULFA (SULFONAMIDE ANTIBIOTICS)] Exam Vital signs and Labs for Last 24 Hours: Temp Pulse Resp BP Pulse Ox 98.9 F 58 L 20 89/54 95 06/04/17 19:00 06/04/17 19:00 06/04/17 19:00 06/04/17 19:00 06/04/17 19:45 Laboratory Results - last 24 hr 06/03/17 20:55: POC Glucose 397 06/04/17 06:30: WBC 6.7, RBC 4.02 L, Hgb 10.8 L D, Hct 33.2 L, MCV 82.5, MCH 26.8 L, MCHC 32.5, RDW 14.2, Plt Count 146, MPV 9.1, Neut % (Auto) 82.9 H, Lymph % (Auto) 11.1, [place] % (Auto) 5.4
--- NOTE | 2017-06-04 20:17 | P.HP_ITS ---
*Admission Date: 06/03/17 *Chief complaint: infected toe *History of present illness: Ms. Beltran is a 72-year-old diabetic female who presented yesterday to the ER with complaints of nausea and right foot swelling. She also complained of pain to the right calf. She noticed right 2nd toe redness and drainage x 3 weeks. She admits to not taking care of herself . She states her blood sugars are in the 400-600s at home. She has not liborio seeing her PCP, Dr. Avalos on a regular basis and states she does not take insulin in evenings/night because of being afraid to go into a DM coma during her sleep and not wake up . Patient has a history of right foot fractures. She was having treatment by Dr. Mcintosh. From what it sounds like it sounds like she was describing a Charcot foot episode several years ago. She had redness and swelling and then multiple foot fractures . She did not have surgery to have it addressed. She denies wearing a [place] boot or DM shoes. [facility] History I have reviewed the patient's past medical history: Yes Medical History: Reports:: Chronic Obstructive Pulmonary Disease (COPD), Coronary Artery Disease, Diabetes Mellitus Type 2, Hyperlipidemia, Hypertension , Myocardial Infarction, Renal Disease Denies:: Cancer, Diabetes Mellitus Type 1, MRSA Other Medical History: Reports: Arthritis, Hypothyroidism Other Surgeries: Yes: Hysterectomy-Partial, Tubal Ligation. No: Pacemaker Amputation: No Fractures: No - *Social History Educational Level: Attended Grade School Smoking Status: Never smoker # Packs/Day (cigarettes): 0 #Yrs smoked (if former smoker): 0 Alcohol Intake: never Occupational Status: unemployed Housing: house Household Members: significant other - Psychiatric History Expresses thoughts of harming self/others: None Suicide Plan Description: No Plan *Family Hx:: Cancer, Diabetes, Heart Attack, Hyperlipidemia, Hypertension Review of Systems - Review of Systems Review of systems:: pertinent systems reviewed and negative unless documented below - Constitutional Reports weakness, Denies fever(s) - Eyes Denies change in vision - ENT Denies sore throat - *Cardiovascular Denies chest pain - *Respiratory Denies cough - *Gastrointestinal Reports nausea - *Musculoskeletal Reports joint pain, Reports joint swelling, Reports other (infected second toe ) - Integumentary/Breasts Reports other (infected toe ), Denies rash - *Neurologic Reports tingling/numbness/burning sensations, Reports tingling, Denies behavioral changes, Denies confusion, Denies loss of vision - Psychiatric Denies confusion Meds Home Medications Medication Instructions Recorded Confirmed Type Bisoprolol Fumarate 10 mg PO DAILY 06/03/17 06/03/17 History Carvedilol [Carvedilol 25mg Tab] 25 mg PO BID 06/03/17 06/03/17 History Clopidogrel Bisulfate [Clopidogrel 75 mg PO DAILY 06/03/17 06/03/17 History 75mg Tab] Famotidine [Acid Controller] 20 mg PO BID 06/03/17 06/03/17 History Gabapentin [Gabapentin 400mg Cap] 400 mg PO TID 06/03/17 06/03/17 History Levothyroxine Sodium 88 mcg PO DAILY 06/03/17 06/04/17 History [Levothyroxine 88mcg (0.088mg) Tab] Simvastatin 20 mg PO HS 06/03/17 06/03/17 History Allergies Allergy/AdvReac Type Severity Reaction Status Date / Time Penicillins [PENICILLINS] Allergy Intermediate I-RASH Verified 06/03/17 15:29 Sulfa (Sulfonamide Allergy Unknown Verified 06/03/17 15:29 Antibiotics)
[2017-06-04 21:34] LABS: POC Glucose,Bedside 268 mg/dL
--- NOTE | 2017-06-04 22:32 | PC.NURSE ---
late entry- nurse notified of pts low bp 22:30
[2017-06-05] VITALS (8 sets, daily range): BP systolic 80–114; BP diastolic 46–58; PULSE 50–62; RESP 18–20; TEMP 36.4–36.7; O2SAT 96–99
--- NOTE | 2017-06-05 04:21 | PC.NURSE ---
PARTIAL AMPUTATION OF RT SECOND TOE, DRESSING INTACT. NO EXCESSIVE BLEEDING NOTED, NO NEED FOR REINFORCEMENT. PLEASANT AFFECT WITH NO C/O PAIN OR DISCOMFORT. NO S/S OF DISTRESS. FLU-B + VSS. SCATTERED WHEEZES AND RHONCHI THROUGHOUT LUNG GRACIA. NO JAYCOB HOSE ON AFFECTED FOOT, PT REFUSED FOR LEFT FOOT; RIGHT FOOT REMAINS ELEVATED. PATIENT HAS REMAINED AFEBRILE SO FAR THIS SHIFT WITH NO ACUTE CHANGES. BED IN LOW POSITION WITH CALL LIGHT IN REACH. WILL CONTINUE TO MONITOR
[2017-06-05 07:06] LABS: POC Glucose,Bedside 197 mg/dL
--- NOTE | 2017-06-05 08:43 | HMH.ACPN ---
Internal Medicine - PN: Subj *Date: 06/05/17 *Time: 08:43 Exam Vital signs and Labs for Last 24 Hours: Temp Pulse Resp BP Pulse Ox 97.5 F L 51 L 18 96/58 99 06/05/17 04:00 06/05/17 04:00 06/05/17 04:00 06/05/17 04:00 06/05/17 04:00 Laboratory Results - last 24 hr 06/04/17 11:42: POC Glucose 258 06/04/17 16:46: POC Glucose 273 06/04/17 20:03: POC Glucose 268 06/05/17 06:38: POC Glucose 197 I & O for Last 24 hours: Intake & Output 06/02/17 06/03/17 06/04/17 06/05/17 11:59 11:59 11:59 11:59 Intake Total 490 / 490 700 / 700 Output Total 400 / 400 Balance 490 / 490 300 / 300 Microbiology Reports for the Last 24 Hours: Microbiology 06/04/17 13:56 Bone Gram Stain - Final 06/04/17 13:56 Toe,Second Right Gram Stain - Final - Constitutional no acute distress - *Routine HEENT Exam Head: Present: normocephalic Eye: Present: PERRL ENT: Present: mucous membranes moist - *Routine Neck Exam Present: supple, full ROM - *Routine Respiratory Exam Present: CTA bilaterally - *Routine Cardiovascular Exam Present: RRR - *Routine Abdominal Exam Present: soft, normoactive bowel sounds - *Routine Extremities Exam Present: full ROM, pulses intact - Detailed Lower Extremity Exam Top foot image: 1 - amputated. dressing in place Assessment and Plan (1) Cellulitis of toe of right foot Problem details: Right foot swelling and redness x 3 weeks. Ulcer with purulent drainage Current visit: Yes Status: Acute Category: Medical Code(s): L03.031 - Cellulitis of right toe - Assessment and plan all Dx Assessment and Plan for all problems:: discuss with reynaldo treatment plan
[2017-06-05 09:15] LABS: Vancomycin,Trough 9.2 mcg/ml (10.0-20.0)
--- NOTE | 2017-06-05 09:52 | HMH.ORTHPN ---
Subjective Date: 06/05/17 Time: 09:52 Principal diagnosis: Right 2nd toe cellulitis, osteomyelitis Interval history: Ms. Beltran is a 72 y/o DM female. S/p right 2nd toe partial amputation, 06/04/17. POD #1. Pain controlled. She c/o weakness and SOB. PN: Obj Ex Vital signs: Temp Pulse Resp BP Pulse Ox 97.5 F L 51 L 18 96/58 99 06/05/17 04:00 06/05/17 04:00 06/05/17 04:00 06/05/17 04:00 06/05/17 04:00 Narrative: Right foot dressing clean dry and intact. No strike thru noted. Dressing removed. Sutures intact to the amputation site on the right 2nd toe. No drainage noted. No malodor. Erythema and edema decreased. There is still pain to palpation of the right calf, but reduced from yesterday. - Constitutional no acute distress, obese, cooperative - Routine HEENT Exam Head: Present: normocephalic - Routine Neck Exam Absent: tenderness - Routine Respiratory Exam Comments: coughing - Routine Abdominal Exam Absent: guarding - Routine Extremities Exam Present: edema (RLE, improving), pulses intact (weakly palpable right), amputation (right 2nd partial toe) - Detailed Lower Extremity Exam Foot/Toes: Left normal inspection, Right amputation (right 2nd partial toe), Right deformity (Hx of Charcot), Right erythema, Right swelling Top foot image: 1 - Right 2nd toe, partial amputation with sutures intact - Routine Skin Exam Present: erythema, dry - Routine Neurological Exam Present: alert, oriented X3 - Detailed Neurological Exam Sensory: Abnormal lower extremity light touch, Abnormal lower extremity pin prick, Abnormal vibratory Progress Note: A&P (1) Cellulitis of toe of right foot Start date: 06/03/17 Problem details: Right foot swelling and redness x 3 weeks. Ulcer with purulent drainage Status: Acute Assessment and plan: S/P Right 2nd Partial Amputation, 06/04/17: R 2nd toe WCx, 06/04/17: GPC R 2nd toe Bone cx and bone path, 06/04/17: pending 1. Dressing changed today, betadine dry sterile dressing (DSD) applied 2. Continue IV abx, monitor for final cultures 3. Do not apply ice 4. Maintain dressing clean dry and intact 5. Stable from Podiatry stand point 6. Will need to follow up with Dr. Lee next week Current Visit: Yes (2) Gangrene associated with type 2 diabetes mellitus Problem details: Gangrene noted to the distal tip of the right 2nd toe. Status: Acute Current Visit: Yes - Time Spent With Patient less than 15 minutes
--- NOTE | 2017-06-05 09:56 | P.PN_ITS ---
Subjective Date: 06/05/17 Time: 09:52 Principal diagnosis: Right 2nd toe cellulitis, osteomyelitis Interval history: Ms. Beltarn is a 72 y/o DM female. S/p right 2nd toe partial amputation, . POD #1. Pain controlled. She c/o weakness and SOB. PN: Obj Ex Vital signs: Temp Pulse Resp BP Pulse Ox 97.5 F L 51 L 18 96/58 99 06/05/17 04:00 06/05/17 04:00 06/05/17 04:00 06/05/17 04:00 06/05/17 04:00 Narrative: Right foot dressing clean dry and intact. No strike thru noted. Dressing removed. Sutures intact to the amputation site on the right 2nd toe. No drainage noted. No malodor. Erythema and edema decreased. There is still pain to palpation of the right calf, but reduced from yesterday. - Constitutional no acute distress, obese, cooperative - Routine HEENT Exam Head: Present: normocephalic - Routine Neck Exam Absent: tenderness - Routine Respiratory Exam Comments: coughing - Routine Abdominal Exam Absent: guarding - Routine Extremities Exam Present: edema (RLE, improving), pulses intact (weakly palpable right), amputation (right 2nd partial toe) - Detailed Lower Extremity Exam Foot/Toes: Left normal inspection, Right amputation (right 2nd partial toe), Right deformity (Hx of Charcot), Right erythema, Right swelling Top foot image: 1 - Right 2nd toe, partial amputation with sutures intact - Routine Skin Exam Present: erythema, dry - Routine Neurological Exam Present: alert, oriented X3 - Detailed Neurological Exam Sensory: Abnormal lower extremity light touch, Abnormal lower extremity pin prick, Abnormal vibratory Progress Note: A&P (1) Cellulitis of toe of right foot Start date: 06/03/17 Problem details: Right foot swelling and redness x 3 weeks. Ulcer with purulent drainage Status: Acute Assessment and plan: S/P Right 2nd Partial Amputation, 06/04/17: R 2nd toe WCx, 06/04/17: GPC R 2nd toe Bone cx and bone path, 06/04/17: pending 1. Dressing changed today, betadine dry sterile dressing (DSD) applied 2. Continue IV abx, monitor for final cultures 3. Do not apply ice 4. Maintain dressing clean dry and intact 5. Stable from Podiatry stand point 6. Will need to follow up with Dr. Lee next week Current Visit: Yes (2) Gangrene associated with type 2 diabetes mellitus Problem details: Gangrene noted to the distal tip of the right 2nd toe. Status : Acute Current Visit: Yes - Time Spent With Patient less than 15 minutes
[2017-06-05 12:06] LABS: POC Glucose,Bedside 309 mg/dL
[2017-06-05 14:00] LABS: POC Glucose,Bedside 136 mg/dL
--- NOTE | 2017-06-05 14:47 | PC.NURSE ---
1030 Gerson Torres notified of pt's sustained low bp as well as creatinine of 3.76. pt not on any fluids. underground utility locator orders ns 250ml bolus x1
--- NOTE | 2017-06-05 14:49 | PC.NURSE ---
Patient will need a bedside commode after discharge due to difficulty ambulating from bed to restroom at hospital and at home. Patient has been using bedside commode since admission.
--- NOTE | 2017-06-05 15:27 | SW/DCPLANNER ---
Addendum entered by Kath Day 06/06/17 10:13: I have spoke with Forrest from [facility] in [place]. Forrest has confirmed that patient information and order form for bedside commode has been received and they will be delivering BCS this afternoon (06/06/17). Patient discharged from [facility] today (06/06/17). Original Note: Patient has stated that she already has a walker and a wheel chair at home. Patient did state that she would need a BSC once she returns home. Once discharge date is known patient information will be faxed to [facility]. Patient did not have any other needs at this time.
--- NOTE | 2017-06-05 16:24 | PC.NURSE ---
CRACKLES CONTINUE IN LLL. PT WEAK, NEEDING ASSISTANCE X1 TO BSC. PT HAS NOT URINATED MUCH TODAY. GIVEN 250ML BOLUS OF NS FOR HYPOTENSION WITH SLIGHT IMPROVEMENT. PT COUGHING WITH CLEAR, THIN SPUTUM. STILL USING 2L NC.
[2017-06-05 18:28] LABS: POC Glucose,Bedside 291 mg/dL
[2017-06-06 01:52] LABS: POC Glucose,Bedside 256 mg/dL
--- NOTE | 2017-06-06 03:24 | PC.NURSE ---
NO COMPLAINTS THIS SHIFT, DENIES PAIN. 2+ EDEMA NOTED IN RLE, 1+ EDEMA NOTED TO LLE, PT STATES THERE IS MILD PAIN WHEN TOUCHING RLE. DSG CDI. 1+ PALPABLE PEDAL AND TIBIAL PULSES TO BLE. A&OX3. SCATTERED WHEEZES AND RHONCHI NOTED DURING LUNG AUSCULTATION, ALSO CRACKLES NOTED TO LLL. PT C/O NOT HAVING A BM IN SEVERAL DAYS, BS ACTIVE IN ALL 4 QAUDS. VSS. NO ACUTE DISTRESS NOTED. WILL CONTINUE TO MONITOR.
[2017-06-06 04:00] VITALS: BP 114/58; PULSE 59; RESP 20; TEMP 36.6; O2SAT 96
[2017-06-06 07:10] LABS: Alanine Aminotransferase 25 U/L (12-78); Albumin Level 1.7 gm/dL (3.4-5.0); Albumin/Globulin Ratio 0.5 (1.1-1.8); Alkaline Phosphatase 142 U/L (46-116); Anion Gap 14.6 mEq/L (5-15); Aspartate Amino Transferase 43 U/L (15-37); Bilirubin,Total 0.3 mg/dL (0.2-1.0); Blood Urea Nitrogen 69 mg/dL (7-18); Carbon Dioxide 19 mmol/L (21.0-32.0); Chloride 107 mmol/L (98-107); Creatinine Clearance Estimated 16 mL/min (0-300); Estimated Glomerular Filt Rate 9 ml/min (>60); GFR (African American) 11 ML/MIN (>60); Globulin 3.5 gm/dl (1.3-3.2); Glucose 208 mg/dL (74-106); Potassium 4.6 mmoL/L (3.5-5.1); Sodium 136 mmol/L (136-145); Total Protein,Serum 5.2 gm/dL (6.4-8.2)
[2017-06-06 07:12] LABS: Creatinine,Serum 4.83 mg/dL (0.55-1.02)
[2017-06-06 07:19] LABS: Calcium 7.9 mg/dL (8.5-10.1)
[2017-06-06 08:00] VITALS: BP 123/65; PULSE 62; RESP 18; TEMP 36.7; O2SAT 96
--- NOTE | 2017-06-06 08:02 | PC.NURSE ---
REPORT GIVEN TO BERTRAND RN
--- NOTE | 2017-06-06 08:24 | HMH.DCSUM ---
General - General Admission date: 06/03/17 Discharge date: 06/06/17 HPI HPI: Ms. Beltran is a 72-year-old diabetic female who presented yesterday to the ER with complaints of nausea and right foot swelling. She also complained of pain to the right calf. She noticed right 2nd toe redness and drainage x 3 weeks. She admits to not taking care of herself . She states her blood sugars are in the 400-600s at home. She has not liborio seeing her PCP, Dr. Avalos on a regular basis and states she does not take insulin in evenings/night because of being afraid to go into a DM coma during her sleep and not wake up . Patient has a history of right foot fractures. She was having treatment by Dr. Mcintosh. From what it sounds like it sounds like she was describing a Charcot foot episode several years ago. She had redness and swelling and then multiple foot fractures . She did not have surgery to have it addressed. She denies wearing a [place] boot or DM shoes. Objective Vital signs: Temp Pulse Resp BP Pulse Ox 97.8 F 59 L 20 114/58 96 06/06/17 04:00 06/06/17 04:00 06/06/17 04:00 06/06/17 04:00 06/06/17 04:00 no acute distress - *Routine HEENT Exam Head: Present: normocephalic Eye: Present: EOMI, PERRL ENT: Present: mucous membranes dry - *Routine Neck Exam Present: supple - *Routine Respiratory Exam Present: decreased breath sounds. Absent: respiratory distress - *Routine Cardiovascular Exam Present: RRR, murmur - *Routine Abdominal Exam Present: soft - *Routine Extremities Exam Present: edema. Absent: Nano's sign Comments: s/p amputation rt second toe - *Routine Skin Exam Present: dry Comments: s/p amputation rt second toe - *Routine Neurological Exam Present: alert, oriented X3, CN II-XII intact - Routine Psychiatric Exam Present: normal affect, normal thought process Hospital Course Hospital Course: pt did well and was seen by podiatry with amputaion and will be d/c on abx and will have close follow up in office - pt has sig renal insuff and followed by dr smith and diabetes stable Results Labs on day of discharge: Labs from last 24 hours 06/06/17 06/05/17 06/05/17 06:14 21:01 16:30 Sodium 136 Potassium 4.6 Chloride 107 Carbon Dioxide 19 L Anion Gap 14.6 BUN 69 H D Creatinine 4.83 H D Estimated Creat Clear 16 Estimated GFR 9 L* Est GFR ( Amer) 11 L* D Glucose 208 H POC Glucose 256 291 Calcium 7.9 L D Total Bilirubin 0.3 AST 43 H ALT 25 Alkaline Phosphatase 142 H Total Protein 5.2 L D Albumin 1.7 L Globulin 3.5 H Albumin/Globulin Ratio 0.5 L Vancomycin Trough 06/05/17 06/05/17 06/05/17 11:54 11:44 06:35 Sodium Potassium Chloride Carbon Dioxide Anion Gap BUN Creatinine Estimated Creat Clear Estimated GFR Est GFR ( Amer) Glucose POC Glucose 136 309 Calcium Total Bilirubin AST ALT Alkaline Phosphatase Total Protein Albumin Globulin Albumin/Globulin Ratio Vancomycin Trough 9.2 L Preliminary micro results at discharge 06/04/17 13:56 Surgical Biopsy Culture - Preliminary Bone Gram Positive Cocci DS: Diagnosis - Discharge Diagnosis (1) Cellulitis of toe of right foot Status: Resolved Problem details: Right foot swelling and redness x 3 weeks. Ulcer with purulent drainage (2) Chronic renal disease Status: Acute (3) Gangrene associated with type 2 diabetes mellitus Status: Chronic Problem details: Gangrene noted to the distal tip of the right 2nd toe. Meds Home Medications Medication Instructions Recorded Confirmed Type Bisoprolol Fumarate 10 mg PO DAILY 06/03/17 06/03/17 History Carvedilol [Carvedilol 25mg Tab] 25 mg PO BID 06/03/17 06/03/17 History Clopidogrel Bisulfate [Clopidogrel 75 mg PO DAILY 06/03/17 06/03/17 History 75mg Tab] Famotid
--- NOTE | 2017-06-06 08:27 | P.DS_ITS ---
General - General Admission date: 06/03/17 Discharge date: 06/06/17 HPI HPI: Ms. Beltran is a 72-year-old diabetic female who presented yesterday to the ER with complaints of nausea and right foot swelling. She also complained of pain to the right calf. She noticed right 2nd toe redness and drainage x 3 weeks. She admits to not taking care of herself . She states her blood sugars are in the 400-600s at home. She has not liborio seeing her PCP, Dr. Avalos on a regular basis and states she does not take insulin in evenings/night because of being afraid to go into a DM coma during her sleep and not wake up . Patient has a history of right foot fractures. She was having treatment by Dr. Mcintosh. From what it sounds like it sounds like she was describing a Charcot foot episode several years ago. She had redness and swelling and then multiple foot fractures . She did not have surgery to have it addressed. She denies wearing a [place] boot or DM shoes. Objective Vital signs: Temp Pulse Resp BP Pulse Ox 97.8 F 59 L 20 114/58 96 06/06/17 04:00 06/06/17 04:00 06/06/17 04:00 06/06/17 04:00 06/06/17 04:00 no acute distress - *Routine HEENT Exam Head: Present: normocephalic Eye: Present: EOMI, PERRL ENT: Present: mucous membranes dry - *Routine Neck Exam Present: supple - *Routine Respiratory Exam Present: decreased breath sounds. Absent: respiratory distress - *Routine Cardiovascular Exam Present: RRR, murmur - *Routine Abdominal Exam Present: soft - *Routine Extremities Exam Present: edema. Absent: Nano's sign Comments: s/p amputation rt second toe - *Routine Skin Exam Present: dry Comments: s/p amputation rt second toe - *Routine Neurological Exam Present: alert, oriented X3, CN II-XII intact - Routine Psychiatric Exam Present: normal affect, normal thought process Hospital Course Hospital Course: pt did well and was seen by podiatry with amputaion and will be d/c on abx and will have close follow up in office - pt has sig renal insuff and followed by dr smith and diabetes stable Results Labs on day of discharge: Labs from last 24 hours 06/06/17 06/05/17 06/05/17 06:14 21:01 16:30 Sodium 136 Potassium 4.6 Chloride 107 Carbon Dioxide 19 L Anion Gap 14.6 BUN 69 H D Creatinine 4.83 H D Estimated Creat Clear 16 Estimated GFR 9 L* Est GFR ( Amer) 11 L* D Glucose 208 H POC Glucose 256 291 Calcium 7.9 L D Total Bilirubin 0.3 AST 43 H ALT 25 Alkaline Phosphatase 142 H Total Protein 5.2 L D Albumin 1.7 L Globulin 3.5 H Albumin/Globulin Ratio 0.5 L Vancomycin Trough 06/05/17 06/05/17 06/05/17 11:54 11:44 06:35 Sodium Potassium Chloride Carbon Dioxide Anion Gap BUN Creatinine Estimated Creat Clear Estimated GFR Est GFR ( Amer) Glucose POC Glucose 136 309 Calcium Total Bilirubin AST ALT Alkaline Phosphatase Total Protein Albumin Globulin Albumin/Globulin Rat
[2017-06-07 02:03] LABS: POC Glucose,Bedside 201 mg/dL
== END 2017-06-06 09:53 | disposition home or self-care (01) | DRG 617 ==
LOC: ER 16:36 → 2ND 16:38
PROVIDERS: Nurse Practitioner Family; Admitting Provider Emergency Medicine; Emergency Provider Emergency Medicine; Family Provider Emergency Medicine; PCP Podiatrist; Visit Provider Emergency Medicine
PROC: 0Y6R0Z2 Detachment at Right 2nd Toe, Mid, Open Approach (ICD-10-PCS; CPT 28810; principal; 2017-06-04 14:00)
DX: E11.69 Type 2 diabetes mellitus with other specified complication (principal); M86.171 Other acute osteomyelitis, right ankle and foot; E11.22 Type 2 diabetes mellitus with diabetic chronic kidney disease; J44.9 Chronic obstructive pulmonary disease, unspecified; L03.031 Cellulitis of right toe; I12.9 Hypertensive chronic kidney disease with stage 1 through stage 4 chronic kidney disease, or unspecified chronic kidney disease; N18.3 Chronic kidney disease, stage 3 (moderate); I25.10 Atherosclerotic heart disease of native coronary artery without angina pectoris
CPT/HCPCS: 28810; 71045; 73620; 73630; 74176; 80048; 80053; 80202; 82962; 83605; 83735; 84100; 85007; 85025; 86140; 87040; 87070; 87077; 87186; 87205; 87275; 87276; 88307; 88311; 93005; 93041; 93922; 93970; 96374; 99284; J2405; J3370

== ENCOUNTER → 2017-06-16 16:17 | Outpatient (REF) | payer MEDICARE, MEDICAID, SELFPAY | LOC: LAB 16:17 | PROVIDERS: Visit Provider Emergency Medicine | DX: R53.83 Other fatigue (principal) ==

== ENCOUNTER → 2017-07-07 08:11 | Outpatient (CLI) | payer MEDICARE, MEDICAID, SELFPAY | PROVIDERS: Visit Provider Podiatrist | DX: Z98.890 Other specified postprocedural states (principal) ==

== ENCOUNTER 2017-08-19 11:13 | Emergency (ER) | payer MEDICARE, MEDICAID, SELFPAY ==
[2017-08-19 11:16] VITALS: BP 229/118; PULSE 76; RESP 20; TEMP 36.6; O2SAT 99; BMI 33.7
--- NOTE | 2017-08-19 11:25 | XR_ITS ---
XR chest 2V HISTORY: Chest pain, hypertension ITS.REASON: HTN CP ORDERING PHYSICIAN: Ashish Bullock MD PATIENT AGE: 72 years COMPARISON: 06/04/2017, 02/06/2016 FINDINGS: The cardiomediastinal silhouette and pulmonary vascularity are within normal limits. Increased density is once again noted in the infrahilar region on the right not significant changed and probably related to overlying vessels. Mild kyphosis of the midthoracic spine.. IMPRESSION: No acute finding. No significant change from 02/06/2016
[2017-08-19 11:50] LABS: Basophils # 0.1 K/mm3 (0-0.2); Basophils % 0.9 % (0.1-2.0); Eosinophils # 0.5 K/mm3 (0.0-0.4); Eosinophils % 8.7 % (0.1-12.0); Hematocrit 36.6 % (37.0-47.0); Hemoglobin 11.6 g/dL (12.2-16.2); Lymphocytes # 1.6 K/mm3 (0.7-4.5); Lymphocytes % 26.8 K/mm3 (10-50); Mean Corpuscular HGB Conc 31.8 g/dL (31.8-35.4); Mean Corpuscular Hemoglobin 27.4 pg (27.0-31.2); Mean Corpuscular Volume 86.2 fl (81-99); Mean Platelet Volume 10.3 fl (7.4-10.4); Monocytes # 0.4 K/mm3 (0.1-1.0); Monocytes % 7.3 % (1.7-9.3); Neutrophils # 3.3 K/mm3 (1.8-7.8); Neutrophils % 56.2 % (37.0-80.0); Red Blood Count 4.24 M/mm3 (4.20-5.40); Red Cell Distribution Width 14.2 % (11.5-17.5); White Blood Count 5.9 K/mm3 (4.8-10.8)
--- NOTE | 2017-08-19 12:02 | HMH.EDWEAK ---
ED Disposition Clinical Impression: Thrombocytopenia, Non-compliance Hypertension Qualifiers: Hypertension type: unspecified Qualified Code(s): I10 - Essential (primary) hypertension Chronic renal failure Qualifiers: Chronic kidney disease stage: unspecified stage Qualified Code(s): N18.9 - Chronic kidney disease, unspecified Disposition: Home, Self-Care Condition on Discharge: Fair Instructions: Hypertension (Alternative Therapy) Additional Instructions: Please follow up with Dr Avalos within two (2) days for mandatory reevaluation!!! If unable to see Dr. Avalos please return to this emergency room (for reevaluation). Please call and re-schedule your appointment with Dr Greer (within 2-3), will need hemodyalisis shortly. Also, follow up with the leather leveler, dr Jeffries within the next 2-3 days. Prescriptions: cloNIDine HCl [cloNIDine 0.1mg Tablet] 0.1 mg PO BID #30 tab Referrals: Madan Greer [Consulting Physician] - Willie Avalos MD [Primary Care Provider] - Fredrick Jeffries MD [Staff Physician] - Time of Disposition: 13:32 - Critical Care Critical Care Time: No Attestation: On 08/19/17, the high probability of a clinically significant, sudden or life threatening deterioration of the following system(s) required my full and direct attention, intervention and personal management. The time I documented below is in addition to time spent performing reported procedures but includes the following listed in this critical care notation. Medical Decision Making - Medical Records Medical records reviewed: Yes: I reviewed the patient's medical records. - Black Inquiry Pt receiving controlled substance: No Vital Signs: 08/19/17 11:16 08/19/17 12:06 08/19/17 13:28 Temperature 97.9 F Temperature Source Oral Pulse Rate Pulse Rate [Right Brachial] 76 77 61 Respiratory Rate 20 18 20 Blood Pressure Blood Pressure [Right Arm] 229/118 230/117 134/73 Blood Pressure Mean [Right Arm] 155 154 93 Blood Pressure Source Blood Pressure Source [Right Arm] Automatic Cuff Automatic Cuff Automatic Cuff Blood Pressure Position Blood Pressure Position [Right Arm] Sitting Sitting Supine 02 Sat by Pulse Oximetry 99 98 97 Oxygen Delivery Method Room Air Room Air Room Air 08/19/17 15:21 Temperature 97.9 F Temperature Source Oral Pulse Rate 60 Pulse Rate [Right Brachial] Respiratory Rate 20 Blood Pressure 150/89 Blood Pressure [Right Arm] Blood Pressure Mean [Right Arm] Blood Pressure Source Automatic Cuff Blood Pressure Source [Right Arm] Blood Pressure Position Sitting Blood Pressure Position [Right Arm] 02 Sat by Pulse Oximetry Oxygen Delivery Method Room Air - Lab Data Lab Results 08/19/17 11:25: WBC 5.9, RBC 4.24, Hgb 11.6 L, Hct 36.6 L, MCV 86.2, MCH 27.4, MCHC 31.8, RDW 14.2, Plt Count 27 L*, MPV 10.3, Neut % (Auto) 56.2, Lymph % (Auto) 26.8, [place] % (Auto) 7.3, Eos % (Auto) 8.7, Baso % (Auto) 0.9, Neut # (Auto) 3.3, Lymph # (Auto) 1.6, [place] # (Auto) 0.4, Eos # (Auto) 0.5 H, Baso # (Auto) 0.1 08/19/17 11:25: Sodium 132 L, Potassium 5.2 H, Chloride 105, Carbon Dioxide 23, Anion Gap 9.2, BUN 46 H, Creatinine 2.87 H, Estimated Creat Clear 29, Estimated GFR 16 L*, Est GFR ( Amer) 20 L, Glucose 354 H, Calcium 9.5, Total Bilirubin 0.5, AST 23, ALT 24, Alkaline Phosphatase 169 H, Total Creatine Kinase 42, CK-MB (CK-2) 2.8, CK-MB (CK-2) Rel Index 6.7 H, Troponin I < 0.02, Total Protein 6.4, Albumin 2.6 L, Globulin 3.8 H, Albumin/Globulin Ratio 0.7 L Result diagrams: 08/19/17 11:25 08/19/17 11:25 Orders (Tests/Meds): ED MEDICATIONS Discontinued Medications Generic Name Dose Route Start Last Admin Trade Name Freq PRN Reason Stop Dose Admin Clonidine HCl 0.3 mg 08/19/17 12:02 08/19/17 12:05 Clonidine 0.1mg Tablet PO 08/19/17 12:03 0.3 mg ONCE ONE Administration - Radiology Data #1 Image(s): Chest Image Reviewed: Yes I reviewed the patient's radi
[2017-08-19 12:06] VITALS: BP 230/117; PULSE 77; RESP 18; O2SAT 98
[2017-08-19 12:12] LABS: Alanine Aminotransferase 24 U/L (12-78); Albumin Level 2.6 gm/dL (3.4-5.0); Albumin/Globulin Ratio 0.7 (1.1-1.8); Alkaline Phosphatase 169 U/L (46-116); Anion Gap 9.2 mEq/L (5-15); Aspartate Amino Transferase 23 U/L (15-37); Bilirubin,Total 0.5 mg/dL (0.2-1.0); Blood Urea Nitrogen 46 mg/dL (7-18); CKMB Relative Index 6.7 U/L (0-4.0); Calcium 9.5 mg/dL (8.5-10.1); Carbon Dioxide 23 mmol/L (21.0-32.0); Chloride 105 mmol/L (98-107); Creatine Kinase 42 U/L (26-192); Creatine Kinase MB 2.8 ng/ml (0.0-3.6); Creatinine Clearance Estimated 29 mL/min (0-300); Creatinine,Serum 2.87 mg/dL (0.55-1.02); Estimated Glomerular Filt Rate 16 ml/min (>60); GFR (African American) 20 ML/MIN (>60); Globulin 3.8 gm/dl (1.3-3.2); Glucose 354 mg/dL (74-106); Potassium 5.2 mmoL/L (3.5-5.1); Sodium 132 mmol/L (136-145); Total Protein,Serum 6.4 gm/dL (6.4-8.2); Troponin I < 0.02 ng/ml (0.00-0.06)
[2017-08-19 12:25] LABS: Platelet Count 27 K/mm3 (142-424)
[2017-08-19 13:28] VITALS: BP 134/73; PULSE 61; RESP 20; O2SAT 97
[2017-08-19 15:21] VITALS: BP 150/89; PULSE 60; RESP 20; TEMP 36.6; O2SAT 99
== END 2017-08-19 15:23 | disposition home or self-care (01) ==
PROVIDERS: Emergency Provider Emergency Medicine; Family Provider Emergency Medicine; PCP Emergency Medicine
DX: D69.6 Thrombocytopenia, unspecified (principal); N18.9 Chronic kidney disease, unspecified; I13.10 Hypertensive heart and chronic kidney disease without heart failure, with stage 1 through stage 4 chronic kidney disease, or unspecified chronic kidney disease; I20.8 Other forms of angina pectoris; E78.5 Hyperlipidemia, unspecified; I10 Essential (primary) hypertension; E11.65 Type 2 diabetes mellitus with hyperglycemia; Z79.4 Long term (current) use of insulin; Z95.5 Presence of coronary angioplasty implant and graft; J44.9 Chronic obstructive pulmonary disease, unspecified; Z88.0 Allergy status to penicillin; Z88.2 Allergy status to sulfonamides
CPT/HCPCS: 71046; 80053; 82550; 82553; 84484; 85025; 93005; 99284

== ENCOUNTER 2017-09-04 09:36 | Observation (INO) ==
--- NOTE | 2017-09-04 09:54 | Emergency Department Note ---
ED Disposition Clinical Impression: Colitis, Thrombocytopenia, Chronic renal failure, Melanotic stools, Pneumobilia Disposition: Still a Patient Condition on Discharge: Fair Referrals: Willie Avalos MD [Primary Care Provider] - - Critical Care Critical Care Time: No Attestation: On 09/04/17, the high probability of a clinically significant, sudden or life threatening deterioration of the following system(s) required my full and direct attention, intervention and personal management. The time I documented below is in addition to time spent performing reported procedures but includes the following listed in this critical care notation. Medical Decision Making - Black Inquiry Pt receiving controlled substance: No Black was queried for this patient: No Vital Signs: 09/04/17 09:43 Temperature 98.1 F Temperature Source Oral Pulse Rate [Right Brachial] 85 Respiratory Rate 18 Blood Pressure [Right Arm] 220/130 Blood Pressure Mean [Right Arm] 160 Blood Pressure Source [Right Arm] Automatic Cuff Blood Pressure Position [Right Arm] Sitting 02 Sat by Pulse Oximetry 98 - Lab Data Lab Results 09/04/17 09:53: WBC 6.8, RBC 4.70, Hgb 12.8, Hct 40.1, MCV 85.4, MCH 27.3, MCHC 31.9, RDW 14.4, Plt Count 24 L*, MPV 10.0, Neut % (Auto) 66.1, Lymph % (Auto) 19.9, [place] % (Auto) 6.2, Eos % (Auto) 7.4, Baso % (Auto) 0.4, Neut # (Auto) 4.5 , Lymph # (Auto) 1.3, [place] # (Auto) 0.4, Eos # (Auto) 0.5 H, Baso # (Auto) 0.0 09/04/17 09:53: Sodium 140, Potassium 5.4 H, Chloride 110 H, Carbon Dioxide 19 L , Anion Gap 16.4 H, BUN 42 H, Creatinine 3.27 H, Estimated Creat Clear 27, Estimated GFR 14 L*, Est GFR ( Amer) 17 L*, Glucose 293 H, Calcium 10.4 H , Total Bilirubin 1.0, AST 20, ALT 19, Alkaline Phosphatase 169 H, Troponin I < 0.02, Total Protein 7.0, Albumin 2.8 L, Globulin 4.2 H, Albumin/Globulin Ratio 0.7 L 09/04/17 09:53: Magnesium 1.6 09/04/17 09:53: Lipase 181 09/04/17 09:53: PT 10.0, INR 0.93, APTT 23.5 L 09/04/17 10:30: Lactic Acid 0.7 09/04/17 12:15: Urine Color Yellow, Urine Appearance Clear, Urine pH 6.5, Ur Specific [place] 1.020, Urine Protein 3+, Urine Glucose (UA) 3+, Urine Ketones Negative, Urine Blood 2+, Urine Nitrate Negative, Urine Bilirubin Negative, Urine Urobilinogen 0.2, Ur Leukocyte Esterase Negative, Urine RBC 3-5, Urine WBC 10-20, Ur Squamous Epith Cells 10-20, Urine Bacteria 4+ 09/04/17 : Stool Occult Blood Negative Result diagrams: 09/04/17 09:53 09/04/17 09:53 Orders (Tests/Meds): ED MEDICATIONS Generic Name Dose Route Start Last Admin Trade Name Anoop PRN Reason Stop Dose Admin Bisoprolol Fumarate 5 mg 09/05/17 09:00 09/04/17 10:30 Zebeta 5mg Tablet PO 10/05/17 08:59 5 mg DAILY PABLO Administration Carvedilol 25 mg 09/04/17 21:00 09/04/17 10:30 Coreg 25mg Tablet PO 10/04/17 20:59 25 mg BID PABLO Administration Discontinued Medications Generic Name Dose Route Start Last Admin Trade Name Anoop PRN Reason Stop Dose Admin Clonidine HCl 0.1 mg 09/04/17 10:04 09/04/17 10:09 Clonidine 0.1mg Tablet PO 09/04/17 10:05 0.1 mg ONCE ONE Administration Famotidine 20 mg 09/04/17 10:11 09/04/17 10:20 Pepcid 20mg/2ml Vial IV 09/04/17 10:12 20 mg ONCE ONE Administration Pantoprazole Sodium 40 mg 09/04/17 10:11 09/04/17 10:20 Protonix 40mg Vial IV 09/04/17 10:12 40 mg ONCE ONE Administration Sodium Chloride 8 ml 09/04/17 10:11 09/04/17 10:20 Saline Flush 10ml Syringe IV 09/04/17 10:12 8 ml ONCE ONE Administration ORDERS Category Date Time Status Diarrhea Panel, PCR Stat Lab 09/04/17 09:58 Ordered Urine Culture Routine Micro 09/04/17 12:15 Received EKG Request [ECG Request by /Alberto] Stat Y 09/04/17 09:58 Stop Req - CT Data CT Scan: Abdomen, Pelvis Time Received: 13:22 - ECG Data Tracing #1 Normal sinus rhythm per minute LVH with ST and T-wave changes Q-wave in the anterior leads is unchanged from prior EKG in May 2017. ECG initial impression date: 09/04/17 ECG initial impression time: 10:10 Medical Decision Narrative: I reviewed the labs CT results with Juma Torres solids control technician for Dr. Avalos. This patient has a complex past medical history chronic illnesses and with these ambiguous clinical presentation it was going to be prudent to keep her under observation and repeat Hemoccult, bmp and CBC in the morning. General Adult HPI - General Stated complaint: stomach pain black stool right foot Time Seen by Provider: 09/04/17 09:45 Mode of Arrival: Wheelchair Limitations: No Limitations Description of Symptoms (Recalled from ER Triage Doc. by RN): BLACK STOOL, HEADACHE,NOSE BLEEDS, FOOT HURTING AFTER PROCEDURE - History of Present Illness HPI narrative: 72 years old white female with multiple medical problems including abdominal stenting, diabetes coronary artery disease and prior right second toe amputation. She presented to the ED with multiple complain. Complaint #1: Intermittent nosebleeds after she is scratching her nose due to itching. Currently no active bleeding. Complaint # 2: The patient developed epigastric pain associated with diarrhea yellow in color that started taking Pepto-Bismol for and then the stool turned black. She did have 2 black bowel movement this morning. She contacted her primary care physician who told her to come to the ED. Complaint # 3: Ongoing right second toe pain since the amputation. Radiation: non-radiation Quality: dull Relieving factors: none Exacerbating factors: none Associated symptoms: other (Diarrhea and black stool after consuming Pepto- Bismol. ) Treatments prior to arrival: aspirin - Related Data Home Medications Medication Instructions Recorded Confirmed Bisoprolol Fumarate 10 mg PO DAILY 06/03/17 09/04/17 Levothyroxine Sodium 88 mcg PO DAILY 06/03/17 09/04/17 [Levothyroxine 88mcg (0.088mg) Tab] Albuterol Sulfate [Albuterol HFA 2 puff INHALATION Q6H 09/04/17 09/04/17 Inhaler] Insulin Regular, Human [Humulin R] 1 sliding scale dose SUB-Q QID 09/04/1709/04 Isosorbide Mononitrate [Imdur 60mg 60 mg PO QAM 09/04/17 09/04/17 ER tablet] Omeprazole [Omeprazole 40mg 40 mg PO DAILY 09/04/17 09/04/17 Capsule] Spironolactone [Aldactone 50mg Tab] 50 mg PO QAM 09/04/17 09/04/17 cloNIDine HCl [cloNIDine 0.1mg 0.1 mg PO BID 09/04/17 09/04/17 Tablet] insulin aspar prt-insulin aspart 55 unit SUB-Q QPM 09/04/17 09/04/17 100 unit/mL (70-30) subcutaneous soln insulin aspar prt-insulin aspart 65 unit SUB-Q QAM 09/04/17 09/04/17 100 unit/mL (70-30) subcutaneous soln Previous Rx's Medication Instructions Recorded clopidogrel 75 mg tablet 75 mg PO DAILY 90 Days #90 tab 06/16/17 famotidine 20 mg tablet 20 mg PO BID 30 Days #60 tab 06/16/17 gabapentin 400 mg capsule 400 mg PO TID 30 Days #90 cap 06/16/17 simvastatin 20 mg tablet 20 mg PO HS 90 Days #90 tab 06/16/17 carvedilol 25 mg tablet 25 mg PO BID #60 tab 08/19/17 Allergies Allergy/AdvReac Type Severity Reaction Status Date / Time Penicillins [PENICILLINS] Allergy Intermediate I-RASH Verified 07/14/17 16:40 Sulfa (Sulfonamide Allergy Unknown Verified 07/14/17 16:40 Antibiotics) [SULFA (SULFONAMIDE ANTIBIOTICS)] [facility] History I have reviewed the patient's past medical history: Yes Medical History: Reports:: Chronic Obstructive Pulmonary Disease (COPD), Congenital Heart Disease, Coronary Artery Disease, Diabetes Mellitus Type 2, Hyperlipidemia, Hypertension, Myocardial Infarction, Renal Disease Denies:: Cancer, Diabetes Mellitus Type 1, Internal Pacemaker, MRSA Other Medical History: Reports: Arthritis, Hypothyroidism Other Surgeries: Yes: Cardiac Catheterization, Coronary Stent, Hysterectomy- Partial, Tubal Ligation, Ureter Stent, Other (partial toe amputation). No: Pacemaker Amputation: Yes Fractures: No Comment: gallstones, Left wrist - Social History Educational Level: Completed High School Smoking Status: Never smoker Tobacco Type: cigarettes # Packs/Day (cigarettes): 0 #Yrs smoked (if former smoker): 0 Alcohol Intake: never Alcohol Intake Frequency:: 0-2 drinks per day Substance Use Type: denies use Occupational Status: unemployed Housing: apartment Household Members: significant other - Psychiatric History Expresses thoughts of harming self/others: None Suicide Plan Description: No Plan Family Hx:: Cancer, Diabetes, Heart Attack, Hyperlipidemia, Hypertension ROS Obtained: Yes All systems reviewed & no additional complaints Physical Exam - General General appearance: alert, in no apparent distress, other (Alert oriented 3 in no cardiopulmonary distress provided full history. ) - Head Head exam: atraumatic, normocephalic, normal inspection - Eye Eye exam: Present: normal appearance, PERRL, EOMI - ENT ENT exam: Present: normal exam, normal oropharynx, mucous membranes moist, TM's normal bilaterally, normal external ear exam, other (Irritated tip of the nasal septum, no active bleeding.) - Neck Neck exam: Present: normal inspection, full ROM, trachea midline. Absent: meningismus, lymphadenopathy - Chest Chest inspection: Present: normal inspection, symmetric chest wall rise. Absent : tenderness - Respiratory Respiratory exam: Present: normal lung sounds bilaterally. Absent: respiratory distress - Cardiovascular Cardiovascular exam: Present: regular rate, normal rhythm. Absent: JVD - Abdominal Exam Abdominal exam: Present: soft, normal bowel sounds. Absent: distention, tenderness, guarding, rebound, rigidity, tenderness at [place]'s Point Comment: Rectal exam revealed good tone external hemorrhoids empty vault no black stool. - Extremities Exam Extremities exam: Present: normal inspection, full ROM, normal capillary refill , other (Well healed distal second toe amputation). Absent: tenderness, calf tenderness - Back Exam Back exam: Present: normal inspection. Absent: tenderness - Neurological Exam Neurological exam: Present: alert, oriented X3, CN II-XII intact, motor sensory deficit, reflexes normal - Psychiatric Psychiatric exam: Present: normal affect, normal mood - Skin Skin exam: Present: warm, dry, intact, normal color - Lymphatic Lymphatic Findings: no adenopathy
[2017-09-04 10:21] LABS: Basophils % 0.4 % (0.1-2.0); Eosinophils # 0.5 K/mm3 (0.0-0.4); Eosinophils % 7.4 % (0.1-12.0); Hematocrit 40.1 % (37.0-47.0); Hemoglobin 12.8 g/dL (12.2-16.2); Lymphocytes # 1.3 K/mm3 (0.7-4.5); Lymphocytes % 19.9 K/mm3 (10-50); Mean Corpuscular HGB Conc 31.9 g/dL (31.8-35.4); Mean Corpuscular Hemoglobin 27.3 pg (27.0-31.2); Mean Corpuscular Volume 85.4 fl (81-99); Monocytes # 0.4 K/mm3 (0.1-1.0); Monocytes % 6.2 % (1.7-9.3); Neutrophils # 4.5 K/mm3 (1.8-7.8); Neutrophils % 66.1 % (37.0-80.0); Red Cell Distribution Width 14.4 % (11.5-17.5); White Blood Count 6.8 K/mm3 (4.8-10.8)
[2017-09-04 10:30] LABS: Activated Partial Thrombo Time 23.5 seconds (23.6-34.0); INR 0.93 (0.9-1.1)
[2017-09-04 10:35] LABS: Alanine Aminotransferase 19 U/L (12-78); Albumin Level 2.8 gm/dL (3.4-5.0); Albumin/Globulin Ratio 0.7 (1.1-1.8); Alkaline Phosphatase 169 U/L (46-116); Blood Urea Nitrogen 42 mg/dL (7-18); Calcium 10.4 mg/dL (8.5-10.1); Carbon Dioxide 19 mmol/L (21.0-32.0); Chloride 110 mmol/L (98-107); Globulin 4.2 gm/dl (1.3-3.2); Glucose 293 mg/dL (74-106)
[2017-09-04 10:44] LABS: Sodium 140 mmol/L (136-145)
[2017-09-04 10:45] LABS: Anion Gap 16.4 mEq/L (5-15); Aspartate Amino Transferase 20 U/L (15-37); Potassium 5.4 mmoL/L (3.5-5.1)
[2017-09-04 10:49] LABS: Platelet Count 24 K/mm3 (142-424)
[2017-09-04 12:28] LABS: Microscopic, Urine URINE MICROSCOPIC (MICROSCOPIC)
[2017-09-04 12:31] LABS: Appearance,Urine CLEAR (Clear); Bilirubin,Urine Negative (Negative); Blood, Urine 2+ (Negative); Color,Urine YELLOW (Yellow); Glucose,Urine (UA) 3+ (Negative); Ketones,Urine Negative (Negative); Leukocyte Esterase,Urine Negative (Negative); PH,Urine 6.5 (5.0-8.5); Protein,Urine 3+ (Negative); Urobilinogen,Urine 0.2 EU/dl (0.2)
[2017-09-04 12:59] LABS: Bacteria,Urine 4+ /lpf
[2017-09-04 21:08] LABS: Hematocrit 34.7 % (37.0-47.0)
[2017-09-04 21:55] LABS: Hemoglobin 11.3 g/dL (12.2-16.2)
[2017-09-05 05:00] LABS: Anion Gap 11.6 mEq/L (5-15); Potassium 4.6 mmoL/L (3.5-5.1)
[2017-09-05 05:09] LABS: Basophils % 0.4 % (0.1-2.0); Eosinophils # 0.3 K/mm3 (0.0-0.4); Eosinophils % 4.6 % (0.1-12.0); Hematocrit 31.1 % (37.0-47.0); Hemoglobin 10.2 g/dL (12.2-16.2); Lymphocytes # 1.3 K/mm3 (0.7-4.5); Lymphocytes % 21.7 K/mm3 (10-50); Mean Corpuscular HGB Conc 32.7 g/dL (31.8-35.4); Mean Corpuscular Volume 85.7 fl (81-99); Mean Platelet Volume 10.6 fl (7.4-10.4); Monocytes # 0.3 K/mm3 (0.1-1.0); Monocytes % 4.7 % (1.7-9.3); Neutrophils # 4.1 K/mm3 (1.8-7.8); Neutrophils % 68.7 % (37.0-80.0); Red Blood Count 3.63 M/mm3 (4.20-5.40); Red Cell Distribution Width 14.3 % (11.5-17.5)
[2017-09-05 05:20] LABS: Platelet Count 26 K/mm3 (142-424)
--- NOTE | 2017-09-05 07:30 | Pharmacy Consult Notes ---
[facility] Pharmacy VTE Monitoring - Patient Demographics Admission date: 09/04/17 Report Date: 09/05/17 Time: 07:30 Allergies/Adverse Reactions: Patient Allergies Penicillins [PENICILLINS] Allergy (Intermediate, Verified 07/14/17 16:40) I-RASH Sulfa (Sulfonamide Antibiotics) [SULFA (SULFONAMIDE ANTIBIOTICS)] Allergy ( Unknown, Verified 07/14/17 16:40) Height: 1.65 m Weight: 99.082 kg Patient Problems: Current Active Problems Thrombocytopenia (Acute) Chronic renal failure (Acute) Colitis (Acute) Melanotic stools (Acute) Pneumobilia (Acute) - VTE Risk Labs: VTE Related Lab Results Hgb 10.2 g/dL (12.2-16.2) L 09/05/17 04:40 Hct 31.1 % (37.0-47.0) L 09/05/17 04:40 Plt Count 26 K/mm3 (142-424) L* 09/05/17 04:40 PT 10.0 seconds (9.4-11.8) 09/04/17 09:53 INR 0.93 (0.9-1.1) 09/04/17 09:53 APTT 23.5 seconds (23.6-34.0) L 09/04/17 09:53 BUN 39 mg/dL (7-18) H 09/05/17 04:40 Creatinine 3.24 mg/dL (0.55-1.02) H 09/05/17 04:40 Estimated Creat Clear 25 mL/min (0-300) 09/05/17 04:40 Was VTE Risk Assessment Performed: Yes VTE Score: 2 VTE Risk Level: Very Low Risk Clinical Trial Participant: No - Prophylaxis VTE Prophylaxis Ordered?: Yes Types of VTE Prophylaxis: TEDS Knee High
--- NOTE | 2017-09-05 09:02 | H&P/Discharge Summary ---
General - General Admission date: 09/04/17 Discharge date: 09/05/17 *Admission Date: 09/04/17 *Chief complaint: abd pain *History of present illness: 72 years old female presented to the ER with multiple medical problems including ongoing right second toe pain since having it amputated abdominal cramping, intermediate nosebleeds after she scratching and picking nose and epigastric pain associated with diarrhea yellow in color started taking Pepto- Bismol and then noticed stools turning black. History of diabetes,coronary artery disease, renal disease and prior right second toe amputation. [facility] History I have reviewed the patient's past medical history: Yes Medical History: Reports:: Chronic Obstructive Pulmonary Disease (COPD), Congenital Heart Disease, Coronary Artery Disease, Diabetes Mellitus Type 2, Hyperlipidemia, Hypertension, Myocardial Infarction, Renal Disease Denies:: Cancer, Diabetes Mellitus Type 1, Internal Pacemaker, MRSA Other Medical History: Reports: Arthritis, Hypothyroidism Other Surgeries: Yes: Cardiac Catheterization, Cholecystectomy, Coronary Stent, Hysterectomy-Partial, Tubal Ligation, Ureter Stent, Other (partial toe amputation). No: Pacemaker Amputation: Yes Fractures: No - *Social History Educational Level: Completed Grade School Smoking Status: Never smoker Tobacco Type: cigarettes # Packs/Day (cigarettes): 0 #Yrs smoked (if former smoker): 0 Alcohol Intake: never Alcohol Intake Frequency:: 0-2 drinks per day Substance Use Type: denies use Occupational Status: unemployed, disabled Housing: apartment Household Members: significant other - Psychiatric History Expresses thoughts of harming self/others: None Suicide Plan Description: No Plan *Family Hx:: Cancer, Diabetes, Heart Attack, Hyperlipidemia, Hypertension Review of Systems - Constitutional Denies fever(s), Denies headache(s) - Eyes Denies change in vision - ENT Denies change in voice - *Cardiovascular Denies chest pain with activity - *Respiratory Denies chest congestion - *Gastrointestinal Reports abdominal pain, Reports change in bowel habits, Reports cramping, Reports loose stools, Reports other - *Genitourinary Denies urinary urgency - *Musculoskeletal Denies decreased muscle mass - Integumentary/Breasts Denies rash - *Neurologic Denies abnormal movements - Psychiatric Denies anxiety - Endocrine Denies flushing - Hematologic/Lymphatic Denies enlarged lymph nodes - Allergic/Immunologic Denies lip swelling Exam Vital signs and Labs for Last 24 Hours: Temp Pulse Resp BP Pulse Ox 97.4 F L 63 18 158/75 99 09/05/17 07:55 09/05/17 07:55 09/05/17 07:55 09/05/17 07:55 09/05/17 07:55 Laboratory Results - last 24 hr 09/04/17 17:08: POC Glucose 288 H 09/04/17 20:48: Hgb 11.3 L D, Hct 34.7 L 09/04/17 20:49: POC Glucose 297 H 09/04/17 : Stool Occult Blood Negative 09/05/17 03:05: Random Glucose 39 L* 09/05/17 03:44: POC Glucose 76 09/05/17 04:04: POC Glucose 102 09/05/17 04:40: WBC 6.0, RBC 3.63 L, Hgb 10.2 L, Hct 31.1 L, MCV 85.7, MCH 28.0 , MCHC 32.7, RDW 14.3, Plt Count 26 L*, MPV 10.6 H, Neut % (Auto) 68.7, Lymph % (Auto) 21.7, [place] % (Auto) 4.7, Eos % (Auto) 4.6, Baso % (Auto) 0.4, Neut # ( Auto) 4.1, Lymph # (Auto) 1.3, [place] # (Auto) 0.3, Eos # (Auto) 0.3, Baso # (Auto ) 0.0 09/05/17 04:40: Sodium 140, Potassium 4.6, Chloride 113 H, Carbon Dioxide 20 L, Anion Gap 11.6, BUN 39 H, Creatinine 3.24 H, Estimated Creat Clear 25, Estimated GFR 14 L*, Est GFR ( Amer) 17 L*, Glucose 101 D 09/05/17 06:16: POC Glucose 110 I & O for Last 24 hours: Intake & Output 09/02/17 09/03/17 09/04/17 09/05/17 11:59 11:59 11:59 11:59 Intake Total 1408 / 1408 Balance 1408 / 1408 Weight 218 lb 7 oz - Constitutional no acute distress - *Routine HEENT Exam Head: Present: normocephalic Eye: Present: PERRL ENT: Present: mucous membranes moist - *Routine Neck Exam Present: full ROM - *Routine Respiratory Exam Present: CTA bilaterally - *Routine Cardiovascular Exam Present: RRR - *Routine Abdominal Exam Present: soft, normoactive bowel sounds, tenderness - *Routine Extremities Exam Present: full ROM - *Routine Skin Exam Present: intact - *Routine Neurological Exam Present: alert, oriented X3, CN II-XII intact - Routine Psychiatric Exam Present: normal affect, normal thought process Hospital Course Hospital Course: IV antibiotics, CT-IMPRESSION: Thickening of the colon as described above consistent with colitis Sigmoid diverticulosis. No evidence of diverticulitis. Other nonacute findings as described above. Coronary artery disease Patient will be discharged today to follow-up in the office on Friday. Long discussion with patient on the importance of keeping follow-up appointments with nephrology and hematology Results Labs on day of discharge: Labs from last 24 hours 09/05/17 09/05/17 09/05/17 06:16 04:40 04:40 WBC 6.0 RBC 3.63 L Hgb 10.2 L Hct 31.1 L MCV 85.7 MCH 28.0 MCHC 32.7 RDW 14.3 Plt Count 26 L* MPV 10.6 H Neut % (Auto) 68.7 Lymph % (Auto) 21.7 [place] % (Auto) 4.7 Eos % (Auto) 4.6 Baso % (Auto) 0.4 Neut # (Auto) 4.1 Lymph # (Auto) 1.3 [place] # (Auto) 0.3 Eos # (Auto) 0.3 Baso # (Auto) 0.0 Sodium 140 Potassium 4.6 Chloride 113 H Carbon Dioxide 20 L Anion Gap 11.6 BUN 39 H Creatinine 3.24 H Estimated Creat Clear 25 Estimated GFR 14 L* Est GFR ( Amer) 17 L* Glucose 101 D POC Glucose 110 Random Glucose Stool Occult Blood 09/05/17 09/05/17 09/05/17 04:04 03:44 03:05 WBC RBC Hgb Hct MCV MCH MCHC RDW Plt Count MPV Neut % (Auto) Lymph % (Auto) [place] % (Auto) Eos % (Auto) Baso % (Auto) Neut # (Auto) Lymph # (Auto) [place] # (Auto) Eos # (Auto) Baso # (Auto) Sodium Potassium Chloride Carbon Dioxide Anion Gap BUN Creatinine Estimated Creat Clear Estimated GFR Est GFR ( Amer) Glucose POC Glucose 102 76 Random Glucose 39 L* Stool Occult Blood 09/04/17 09/04/17 09/04/17 Unknown 20:49 20:48 WBC RBC Hgb 11.3 L D Hct 34.7 L MCV MCH MCHC RDW Plt Count MPV Neut % (Auto) Lymph % (Auto) [place] % (Auto) Eos % (Auto) Baso % (Auto) Neut # (Auto) Lymph # (Auto) [place] # (Auto) Eos # (Auto) Baso # (Auto) Sodium Potassium Chloride Carbon Dioxide Anion Gap BUN Creatinine Estimated Creat Clear Estimated GFR Est GFR ( Amer) Glucose POC Glucose 297 H Random Glucose Stool Occult Blood Negative 09/04/17 17:08 WBC RBC Hgb Hct MCV MCH MCHC RDW Plt Count MPV Neut % (Auto) Lymph % (Auto) [place] % (Auto) Eos % (Auto) Baso % (Auto) Neut # (Auto) Lymph # (Auto) [place] # (Auto) Eos # (Auto) Baso # (Auto) Sodium Potassium Chloride Carbon Dioxide Anion Gap BUN Creatinine Estimated Creat Clear Estimated GFR Est GFR ( Amer) Glucose POC Glucose 288 H Random Glucose Stool Occult Blood Discharge Medications Discharge Medications: Home Medications Medication Instructions Recorded Confirmed Type Bisoprolol Fumarate 10 mg PO DAILY 06/03/17 09/04/17 History Levothyroxine Sodium 88 mcg PO DAILY 06/03/17 09/04/17 History [Levothyroxine 88mcg (0.088mg) Tab] Albuterol Sulfate [Albuterol HFA 2 puff INHALATION Q6H 09/04/17 09/04/17 History Inhaler] Insulin Regular, Human [Humulin R] 1 sliding scale dose SUB-Q QID 09/04/1709/04 History Isosorbide Mononitrate [Imdur 60mg 60 mg PO QAM 09/04/17 09/04/17 History ER tablet] Omeprazole [Omeprazole 40mg 40 mg PO DAILY 09/04/17 09/04/17 History Capsule] Spironolactone [Aldactone 50mg Tab] 50 mg PO QAM 09/04/17 09/04/17 History cloNIDine HCl [cloNIDine 0.1mg 0.1 mg PO BID 09/04/17 09/04/17 History Tablet] insulin aspar prt-insulin aspart 55 unit SUB-Q QPM 09/04/17 09/04/17 History 100 unit/mL (70-30) subcutaneous soln insulin aspar prt-insulin aspart 65 unit SUB-Q QAM 09/04/17 09/04/17 History 100 unit/mL (70-30) subcutaneous soln Disposition Disposition: Home, Self-Care
== END 2017-09-05 12:20 | disposition home or self-care (01) ==
LOC: ER 09:36 → 2ND 09:36
PROVIDERS: ADMIT Emergency Medicine; ATTEND Emergency Medicine

== ENCOUNTER 2017-11-07 18:14 | Inpatient (IN) ==
--- NOTE | 2017-11-07 19:03 | Emergency Department Note ---
ED Disposition Condition on Discharge: Fair - Critical Care Critical Care Time: No <AmeliaGary - Last Filed: 11/07/17 20:00> <Willie Avalos - Last Filed: 11/07/17 21:36> Clinical Impression: Thrombocytopenia Leg laceration Qualifiers: Encounter type: initial encounter Laterality: right Qualified Code(s): S81.811A - Laceration without foreign body, right lower leg, initial encounter Cellulitis Qualifiers: Site of cellulitis: extremity Site of cellulitis of extremity: lower extremity Laterality: right Qualified Code(s): L03.115 - Cellulitis of right lower limb Chronic renal failure Qualifiers: Chronic kidney disease stage: unspecified stage Qualified Code(s): N18.9 - Chronic kidney disease, unspecified Diabetes mellitus Qualifiers: Diabetes mellitus type: type 1 Diabetes mellitus complication status: with unspecified complications Qualified Code(s): E10.8 - Type 1 diabetes mellitus with unspecified complications Disposition: Still a Patient Attestation: On 11/07/17, the high probability of a clinically significant, sudden or life threatening deterioration of the following system(s) required my full and direct attention, intervention and personal management. The time I documented below is in addition to time spent performing reported procedures but includes the following listed in this critical care notation. Medical Decision Making - Black Inquiry Pt receiving controlled substance: Yes Black was queried for this patient: Yes Reference #:: [id number] Risks and benefits of using a controlled substance: were not discussed with pt by me Comment: 2 rxs for gabapentin <AmeliaGary - Last Filed: 11/07/17 20:00> - Lab Data Result diagrams: 11/07/17 20:44 11/07/17 20:44 <Willie Avalos - Last Filed: 11/07/17 21:36> Vital Signs: 11/07/17 18:23 11/07/17 20:18 Temperature 98.9 F 98.5 F Temperature Source Oral Oral Pulse Rate [Right Radial] 97 H 92 H Respiratory Rate 20 18 Blood Pressure [Right Arm] 121/74 181/95 Blood Pressure Mean [Right Arm] 89 123 Blood Pressure Source [Right Arm] Automatic Cuff Automatic Cuff Blood Pressure Position [Right Arm] Sitting Sitting 02 Sat by Pulse Oximetry 98 95 Oxygen Delivery Method Room Air Room Air - Lab Data Lab Results 11/07/17 19:20: POC Glucose 347 H* 11/07/17 20:44: WBC 12.1 H, RBC 4.29, Hgb 12.4, Hct 36.6 L, MCV 85.3, MCH 28.8, MCHC 33.8, RDW 14.0, Plt Count 36 L*, MPV 11.4 H, Neut % (Auto) 88.9 H, Lymph % (Auto) 5.0 L, [place] % (Auto) 3.2, Eos % (Auto) 2.7, Baso % (Auto) 0.3, Neut # ( Auto) 10.7 H, Lymph # (Auto) 0.6 L, [place] # (Auto) 0.4, Eos # (Auto) 0.3, Baso # (Auto) 0.0 11/07/17 20:44: Lactic Acid 0.5 11/07/17 20:44: Sodium 136, Potassium 4.9, Chloride 106, Carbon Dioxide 21, Anion Gap 13.9, BUN 42 H, Creatinine 3.77 H, Estimated Creat Clear 22, Estimated GFR 12 L*, Est GFR ( Amer) 14 L*, Glucose 340 H, Calcium 9.4 Orders (Tests/Meds): ED MEDICATIONS Discontinued Medications Generic Name Dose Route Start Last Admin Trade Name Freq PRN Reason Stop Dose Admin Vancomycin HCl 2,000 mg/ 250 mls @ 125 mls/hr 11/07/17 21:00 11/07/17 21:20 Sodium Chloride IV 11/07/17 21:01 125 mls/hr ONCE ONE Administration Protocol Miscellaneous 1 each 11/07/17 19:31 11/07/17 20:56 Vancomycin Consult Request NOTAPPLIC 11/07/17 19:32 1 each CONSULT PHARMACY ONE Administration Morphine Sulfate 4 mg 11/07/17 19:28 11/07/17 20:56 Morphine 4mg/Ml Syringe IV 11/07/17 19:29 4 mg ONCE ONE Administration Ondansetron HCl 4 mg 11/07/17 19:28 11/07/17 20:56 Zofran 4mg/2ml Vial IV 11/07/17 19:29 4 mg ONCE ONE Administration ORDERS Category Date Time Status Complete Blood Count Auto Diff Stat Lab 11/07/17 20:44 Results Blood Culture Stat Micro 11/07/17 21:13 Received Wound Culture and Gram Stain Stat Micro 11/07/17 20:44 Received Medical Decision Narrative: 8:00 PM: At shift change, I have discussed the patient with Dr. Avalos, who will assume care of the patient at this time. I have discussed all clinical information including history, physical and diagnostic study results. Preliminary diagnoses based on information available at this point have been recorded by me. Controlled substance administration and critical care statement are also preliminary, as of the time of handoff. (Gary Cisneros) General Adult HPI - General Mode of Arrival: Wheelchair Limitations: No Limitations Description of Symptoms (Recalled from ER Triage Doc. by RN): pt states increase pain in right nelson where stitches are. stitches placed last night in er. pt states that the area is red and swollen. <Gary Cisneros - Last Filed: 11/07/17 20:00> <Willie Avalos - Last Filed: 11/07/17 21:36> - General Chief complaint: PAIN Stated complaint: right leg pain Time Seen by Provider: 11/07/17 19:03 - History of Present Illness HPI narrative: Patient seen in the emergency department last night and had a large laceration on her right nelson sutured. She has increasing pain, redness, swelling around the site. She is on Tylenol 3 which is not helping the pain at all. She says she hurts severely from her knee down to her ankle. No numbness or weakness. She is diabetic. (Gary Cisneros) - Related Data Home Medications Medication Instructions Recorded Confirmed Levothyroxine Sodium 88 mcg PO DAILY 06/03/17 11/07/17 [Levothyroxine 88mcg (0.088mg) Tab] Albuterol Sulfate [Albuterol HFA 2 puff INHALATION Q6H 09/04/17 11/07/17 Inhaler] Insulin Regular, Human [Humulin R] 1 sliding scale dose SUB-Q QID 09/04/1711/07 Isosorbide Mononitrate [Imdur 60mg 60 mg PO QAM 09/04/17 11/07/17 ER tablet] Omeprazole [Omeprazole 40mg 40 mg PO DAILY 09/04/17 11/07/17 Capsule] Spironolactone [Aldactone 50mg Tab] 50 mg PO QAM 09/04/17 11/07/17 cloNIDine HCl [cloNIDine 0.1mg 0.1 mg PO BID 09/04/17 11/07/17 Tablet] insulin aspar prt-insulin aspart 55 unit SUB-Q QPM 09/04/17 11/07/17 100 unit/mL (70-30) subcutaneous soln insulin aspar prt-insulin aspart 65 unit SUB-Q QAM 09/04/17 11/07/17 100 unit/mL (70-30) subcutaneous soln Acetaminophen with Codeine 1 tab PO Q6HP PRN 11/07/17 11/07/17 [Acetaminophen w/Codeine #3 Tablet] Previous Rx's Medication Instructions Recorded carvedilol 25 mg tablet 25 mg PO BID #60 tab 08/19/17 Allergies Allergy/AdvReac Type Severity Reaction Status Date / Time Penicillins [PENICILLINS] Allergy Intermediate I-RASH Verified 11/06/17 19:54 Sulfa (Sulfonamide Allergy Unknown Verified 11/06/17 19:54 Antibiotics) [SULFA (SULFONAMIDE ANTIBIOTICS)] [facility] History I have reviewed the patient's past medical history: Yes Medical History: Reports:: Chronic Obstructive Pulmonary Disease (COPD), Congenital Heart Disease, Coronary Artery Disease, Diabetes Mellitus Type 2, Hyperlipidemia, Hypertension, Myocardial Infarction, Renal Disease Denies:: Cancer, Diabetes Mellitus Type 1, Internal Pacemaker, MRSA Other Medical History: Reports: Arthritis, Hypothyroidism Other Surgeries: Yes: Cardiac Catheterization, Cholecystectomy, Coronary Stent, Hysterectomy-Partial, Tubal Ligation, Ureter Stent, Other (partial toe amputation). No: Pacemaker Amputation: Yes Fractures: No Comment: gallstones, Left wrist - Social History Educational Level: Completed Grade School Smoking Status: Never smoker Tobacco Type: cigarettes # Packs/Day (cigarettes): 0 #Yrs smoked (if former smoker): 0 Alcohol Intake: never Alcohol Intake Frequency:: 0-2 drinks per day Substance Use Type: denies use Occupational Status: unemployed, disabled Housing: apartment Household Members: significant other - Psychiatric History Expresses thoughts of harming self/others: None Suicide Plan Description: No Plan Family Hx:: Cancer, Diabetes, Heart Attack, Hyperlipidemia, Hypertension <Gary Cisneros - Last Filed: 11/07/17 20:00> ROS Obtained: Yes Systems reviewed as appropriate & no additional complaints - Constitutional Constitutional: Denies fever(s) - Musculoskeletal Musculoskeletal: Reports as per HPI, Denies numbness, Denies tingling <Gary Cisneros - Last Filed: 11/07/17 20:00> Physical Exam - General General appearance: alert, in distress - Respiratory Respiratory exam: Absent: respiratory distress - Cardiovascular Cardiovascular exam: Present: regular rate, normal rhythm - Neurological Exam Neurological exam: Present: alert, oriented X3. Absent: motor sensory deficit <Gary Cisneros - Last Filed: 11/07/17 20:00> <Willie Avalos - Last Filed: 11/07/17 21:36> - General Comment: complaining of severe pain (Gary Cisneros) - Expanded Lower Extremity Exam Right Comment: large laceration right pretibial area with sutures in place. Large hemorrhagic vesicle along medial edge of wound, draining serous liquid. erythema diffusely around wound, with warmth extending around wound. Distal NVI. (Gary Cisneros)
[2017-11-07 21:08] LABS: Basophils % 0.3 % (0.1-2.0); Eosinophils # 0.3 K/mm3 (0.0-0.4); Eosinophils % 2.7 % (0.1-12.0); Hematocrit 36.6 % (37.0-47.0); Hemoglobin 12.4 g/dL (12.2-16.2); Lymphocytes # 0.6 K/mm3 (0.7-4.5); Mean Corpuscular HGB Conc 33.8 g/dL (31.8-35.4); Mean Corpuscular Hemoglobin 28.8 pg (27.0-31.2); Mean Corpuscular Volume 85.3 fl (81-99); Mean Platelet Volume 11.4 fl (7.4-10.4); Monocytes # 0.4 K/mm3 (0.1-1.0); Monocytes % 3.2 % (1.7-9.3); Neutrophils # 10.7 K/mm3 (1.8-7.8); Neutrophils % 88.9 % (37.0-80.0); Red Blood Count 4.29 M/mm3 (4.20-5.40); White Blood Count 12.1 K/mm3 (4.8-10.8)
[2017-11-07 21:09] LABS: Platelet Count 36 K/mm3 (142-424)
[2017-11-07 21:21] LABS: Anion Gap 13.9 mEq/L (5-15); Calcium 9.4 mg/dL (8.5-10.1); Potassium 4.9 mmoL/L (3.5-5.1)
[2017-11-07 21:45] LABS: Eosinophils % 1 % (0-3); Hypochromasia 1+; Lymphocytes % 7 % (10-50); Monocytes % 2 % (2-9); Neutrophils % 83 % (42-76); Total Cells Counted 100
--- NOTE | 2017-11-07 22:21 | History & Physical Report ---
*Admission Date: 11/07/17 *Chief complaint: leg pain *History of present illness: this wf who has iddm and crf had trip like injury with flap like lac rt lower leg - seen in the ed and closed and dev pain and reddness and presented to ed - nt seen in the emergency department last night and had a large laceration on her right nelson sutured. She has increasing pain, redness, swelling around the site. She is on Tylenol 3 which is not helping the pain at all. She says she hurts severely from her knee down to her ankle. No numbness or weakness. [facility] History I have reviewed the patient's past medical history: Yes Medical History: Reports:: Chronic Obstructive Pulmonary Disease (COPD), Congenital Heart Disease, Coronary Artery Disease, Diabetes Mellitus Type 2, Hyperlipidemia, Hypertension, Myocardial Infarction, Renal Disease Denies:: Cancer, Diabetes Mellitus Type 1, Internal Pacemaker, MRSA Other Medical History: Reports: Arthritis, Hypothyroidism Other Surgeries: Yes: Cardiac Catheterization, Cholecystectomy, Coronary Stent, Hysterectomy-Partial, Tubal Ligation, Ureter Stent, Other (partial toe amputation). No: Pacemaker Amputation: Yes Fractures: No - *Social History Educational Level: Completed Grade School Smoking Status: Never smoker Tobacco Type: cigarettes # Packs/Day (cigarettes): 0 #Yrs smoked (if former smoker): 0 Alcohol Intake: never Alcohol Intake Frequency:: 0-2 drinks per day Substance Use Type: denies use Occupational Status: unemployed, disabled Housing: apartment Household Members: significant other - Psychiatric History Expresses thoughts of harming self/others: None Suicide Plan Description: No Plan *Family Hx:: Cancer, Diabetes, Heart Attack, Hyperlipidemia, Hypertension Review of Systems - Review of Systems Review of systems:: pertinent systems reviewed and negative unless documented below - Constitutional Denies fever(s) - Eyes Denies change in vision - ENT Reports dry mouth, Denies neck pain - *Cardiovascular Denies chest pain - *Respiratory Denies cough - *Gastrointestinal Denies abdominal pain - *Genitourinary Denies blood in urine, Denies pelvic pain - *Musculoskeletal Denies joint pain, Denies joint swelling - Integumentary/Breasts Reports redness, Reports other (reddness tender rt ant nelson around lac repair ) - *Neurologic Denies confusion, Denies seizure-like activity, Denies localized weakness, Denies numbness, Denies tingling - Psychiatric Denies anxiety Meds Home Medications Medication Instructions Recorded Confirmed Type Levothyroxine Sodium 88 mcg PO DAILY 06/03/17 11/07/17 History [Levothyroxine 88mcg (0.088mg) Tab] Albuterol Sulfate [Albuterol HFA 2 puff INHALATION Q6H 09/04/17 11/07/17 History Inhaler] Insulin Regular, Human [Humulin R] 1 sliding scale dose SUB-Q QID 09/04/1711/07 History Isosorbide Mononitrate [Imdur 60mg 60 mg PO QAM 09/04/17 11/07/17 History ER tablet] Omeprazole [Omeprazole 40mg 40 mg PO DAILY 09/04/17 11/07/17 History Capsule] Spironolactone [Aldactone 50mg Tab] 50 mg PO QAM 09/04/17 11/07/17 History cloNIDine HCl [cloNIDine 0.1mg 0.1 mg PO BID 09/04/17 11/07/17 History Tablet] insulin aspar prt-insulin aspart 55 unit SUB-Q QPM 09/04/17 11/07/17 History 100 unit/mL (70-30) subcutaneous soln insulin aspar prt-insulin aspart 65 unit SUB-Q QAM 09/04/17 11/07/17 History 100 unit/mL (70-30) subcutaneous soln Acetaminophen with Codeine 1 tab PO Q6HP PRN 11/07/17 11/07/17 History [Acetaminophen w/Codeine #3 Tablet] Allergies Allergy/AdvReac Type Severity Reaction Status Date / Time Penicillins [PENICILLINS] Allergy Intermediate I-RASH Verified 11/06/17 19:54 Sulfa (Sulfonamide Allergy Unknown Verified 11/06/17 19:54 Antibiotics) [SULFA (SULFONAMIDE ANTIBIOTICS)] Exam Vital signs and Labs for Last 24 Hours: Temp Pulse Resp BP Pulse Ox 98.8 F 78 16 140/76 95 11/07/17 22:05 11/07/17 22:05 11/07/17 22:05 11/07/17 22:05 11/07/17 20:18 Laboratory Results - last 24 hr 11/07/17 19:20: POC Glucose 347 H* 11/07/17 20:44: WBC 12.1 H, RBC 4.29, Hgb 12.4, Hct 36.6 L, MCV 85.3, MCH 28.8, MCHC 33.8, RDW 14.0, Plt Count 36 L*, MPV 11.4 H, Neut % (Auto) 88.9 H, Lymph % (Auto) 5.0 L, [place] % (Auto) 3.2, Eos % (Auto) 2.7, Baso % (Auto) 0.3, Neut # ( Auto) 10.7 H, Lymph # (Auto) 0.6 L, [place] # (Auto) 0.4, Eos # (Auto) 0.3, Baso # (Auto) 0.0, Total Counted 100, Neutrophils % (Manual) 83 H, Band Neutrophils % 7.0, Lymphocytes % (Manual) 7 L, Monocytes % (Manual) 2, Eosinophils % (Manual) 1, Platelet Estimate Marked decrease, Hypochromasia 1+ 11/07/17 20:44: Lactic Acid 0.5 11/07/17 20:44: Sodium 136, Potassium 4.9, Chloride 106, Carbon Dioxide 21, Anion Gap 13.9, BUN 42 H, Creatinine 3.77 H, Estimated Creat Clear 22, Estimated GFR 12 L*, Est GFR ( Amer) 14 L*, Glucose 340 H, Calcium 9.4 I & O for Last 24 hours: Intake & Output 11/05/17 11/06/17 11/07/17 11/08/17 11:59 11:59 11:59 11:59 Weight 229 lb - Constitutional no acute distress, obese - *Routine HEENT Exam Head: Present: normocephalic Eye: Present: EOMI, PERRL ENT: Present: mucous membranes dry - *Routine Neck Exam Present: supple - *Routine Respiratory Exam Present: CTA bilaterally - *Routine Cardiovascular Exam Present: RRR, murmur, S4 - *Routine Abdominal Exam Present: soft - *Routine Extremities Exam Absent: calf tenderness Comments: lac w/o gross d/c and has tenderness and reddness w/o compartment syn - neurovascular ok - *Routine Skin Exam Present: erythema - *Routine Neurological Exam Present: alert, oriented X3, CN II-XII intact - Routine Psychiatric Exam Present: normal affect H&P: Result - Labs Labs: Short CBC 11/07/17 Range/Units 20:44 WBC 12.1 H (4.8-10.8) K/mm3 Hgb 12.4 (12.2-16.2) g/dL Hct 36.6 L (37.0-47.0) % Plt Count 36 L* (142-424) K/mm3 [facility] 11/07/17 20:44 Sodium 136 Potassium 4.9 Chloride 106 Carbon Dioxide 21 BUN 42 H Creatinine 3.77 H Glucose 340 H Calcium 9.4 Assessment and Plan (1) Cellulitis Current visit: Yes Status: Acute Qualifiers: Site of cellulitis: extremity Site of cellulitis of extremity: lower extremity Laterality: right Qualified Code(s): L03.115 - Cellulitis of right lower limb Category: Medical Code(s): L03.90 - Cellulitis, unspecified (2) Chronic renal failure Current visit: Yes Status: Acute Qualifiers: Chronic kidney disease stage: unspecified stage Qualified Code(s): N18.9 - Chronic kidney disease, unspecified Category: Medical Code(s): N18.9 - Chronic kidney disease, unspecified (3) Diabetes mellitus Current visit: Yes Status: Acute Qualifiers: Diabetes mellitus type: type 1 Diabetes mellitus complication status: with unspecified complications Qualified Code(s): E10.8 - Type 1 diabetes mellitus with unspecified complications Category: Medical Code(s): E11.9 - Type 2 diabetes mellitus without complications (4) Thrombocytopenia Current visit: Yes Status: Acute Category: Medical Code(s): D69.6 - Thrombocytopenia, unspecified
--- NOTE | 2017-11-08 07:05 | Progress Note ---
Internal Medicine - PN: Subj *Date: 11/08/17 *Time: 07:02 Interval history: pt with pain but overall feels ok - labs pending - no vomiting Exam Vital signs and Labs for Last 24 Hours: Temp Pulse Resp BP Pulse Ox 98.2 F 89 18 135/79 100 11/08/17 04:00 11/08/17 04:00 11/08/17 04:00 11/08/17 04:00 11/08/17 04:00 Laboratory Results - last 24 hr 11/07/17 19:20: POC Glucose 347 H* 11/07/17 20:44: WBC 12.1 H, RBC 4.29, Hgb 12.4, Hct 36.6 L, MCV 85.3, MCH 28.8, MCHC 33.8, RDW 14.0, Plt Count 36 L*, MPV 11.4 H, Neut % (Auto) 88.9 H, Lymph % (Auto) 5.0 L, [place] % (Auto) 3.2, Eos % (Auto) 2.7, Baso % (Auto) 0.3, Neut # ( Auto) 10.7 H, Lymph # (Auto) 0.6 L, [place] # (Auto) 0.4, Eos # (Auto) 0.3, Baso # (Auto) 0.0, Total Counted 100, Neutrophils % (Manual) 83 H, Band Neutrophils % 7.0, Lymphocytes % (Manual) 7 L, Monocytes % (Manual) 2, Eosinophils % (Manual) 1, Platelet Estimate Marked decrease, Hypochromasia 1+ 11/07/17 20:44: Lactic Acid 0.5 11/07/17 20:44: Sodium 136, Potassium 4.9, Chloride 106, Carbon Dioxide 21, Anion Gap 13.9, BUN 42 H, Creatinine 3.77 H, Estimated Creat Clear 22, Estimated GFR 12 L*, Est GFR ( Amer) 14 L*, Glucose 340 H, Calcium 9.4 11/08/17 06:20: POC Glucose 370 H* I & O for Last 24 hours: Intake & Output 11/05/17 11/06/17 11/07/17 11/08/17 11:59 11:59 11:59 11:59 Intake Total 915 / 915 Output Total 250 / 250 Balance 665 / 665 Weight 209 lb 2 oz Microbiology Reports for the Last 24 Hours: Microbiology 11/07/17 20:44 Leg,Right Gram Stain - Final - Constitutional no acute distress - *Routine HEENT Exam Head: Present: normocephalic Eye: Present: EOMI, PERRL ENT: Present: mucous membranes dry - *Routine Neck Exam Absent: JVD - *Routine Respiratory Exam Absent: respiratory distress - *Routine Cardiovascular Exam Present: RRR, murmur - *Routine Abdominal Exam Present: soft - *Routine Extremities Exam Absent: calf tenderness - *Routine Skin Exam Comments: sl less red around lac but still bruised looking but had same appearance - ecchymosis prior to suturing - *Routine Neurological Exam Present: alert, oriented X3, CN II-XII intact - Routine Psychiatric Exam Present: normal affect Assessment and Plan (1) Cellulitis Current visit: Yes Status: Acute Qualifiers: Site of cellulitis: extremity Site of cellulitis of extremity: lower extremity Laterality: right Qualified Code(s): L03.115 - Cellulitis of right lower limb Category: Medical Code(s): L03.90 - Cellulitis, unspecified (2) Chronic renal failure Current visit: Yes Status: Acute Qualifiers: Chronic kidney disease stage: unspecified stage Qualified Code(s): N18.9 - Chronic kidney disease, unspecified Category: Medical Code(s): N18.9 - Chronic kidney disease, unspecified (3) Diabetes mellitus Current visit: Yes Status: Acute Qualifiers: Diabetes mellitus type: type 1 Diabetes mellitus complication status: with unspecified complications Qualified Code(s): E10.8 - Type 1 diabetes mellitus with unspecified complications Category: Medical Code(s): E11.9 - Type 2 diabetes mellitus without complications (4) Thrombocytopenia Current visit: Yes Status: Acute Category: Medical Code(s): D69.6 - Thrombocytopenia, unspecified
--- NOTE | 2017-11-08 08:47 | Pharmacy Consult Notes ---
- Pharmacy Consult Date: 11/08/17 Time: 08:45 Referring provider: DR. PALMA Reason for Consult:: VANCOMYCIN DOSING Allergies and ADEs:: Allergies Allergy/AdvReac Type Severity Reaction Status Date / Time Penicillins [PENICILLINS] Allergy Intermediate I-RASH Verified 11/06/17 19:54 Sulfa (Sulfonamide Allergy Unknown Verified 11/06/17 19:54 Antibiotics) [SULFA (SULFONAMIDE ANTIBIOTICS)] Home Medications:: Home Medications Medication Instructions Recorded Confirmed Type Levothyroxine Sodium 88 mcg PO DAILY 06/03/17 11/07/17 History [Levothyroxine 88mcg (0.088mg) Tab] Albuterol Sulfate [Albuterol HFA 2 puff INHALATION Q6H 09/04/17 11/07/17 History Inhaler] Insulin Regular, Human [Humulin R] 1 sliding scale dose SUB-Q QID 09/04/1711/07 History Isosorbide Mononitrate [Imdur 60mg 60 mg PO QAM 09/04/17 11/07/17 History ER tablet] Omeprazole [Omeprazole 40mg 40 mg PO DAILY 09/04/17 11/07/17 History Capsule] Spironolactone [Aldactone 50mg Tab] 50 mg PO QAM 09/04/17 11/07/17 History cloNIDine HCl [cloNIDine 0.1mg 0.1 mg PO BID 09/04/17 11/07/17 History Tablet] insulin aspar prt-insulin aspart 55 unit SUB-Q QPM 09/04/17 11/07/17 History 100 unit/mL (70-30) subcutaneous soln insulin aspar prt-insulin aspart 65 unit SUB-Q QAM 09/04/17 11/07/17 History 100 unit/mL (70-30) subcutaneous soln Acetaminophen with Codeine 1 tab PO Q6HP PRN 11/07/17 11/07/17 History [Acetaminophen w/Codeine #3 Tablet] Height: 1.75 m Weight: 94.858 kg Laboratory Results:: Laboratory Results - last 24 hr 11/07/17 19:20: POC Glucose 347 H* 11/07/17 20:44: WBC 12.1 H, RBC 4.29, Hgb 12.4, Hct 36.6 L, MCV 85.3, MCH 28.8, MCHC 33.8, RDW 14.0, Plt Count 36 L*, MPV 11.4 H, Neut % (Auto) 88.9 H, Lymph % (Auto) 5.0 L, [place] % (Auto) 3.2, Eos % (Auto) 2.7, Baso % (Auto) 0.3, Neut # ( Auto) 10.7 H, Lymph # (Auto) 0.6 L, [place] # (Auto) 0.4, Eos # (Auto) 0.3, Baso # (Auto) 0.0, Total Counted 100, Neutrophils % (Manual) 83 H, Band Neutrophils % 7.0, Lymphocytes % (Manual) 7 L, Monocytes % (Manual) 2, Eosinophils % (Manual) 1, Platelet Estimate Marked decrease, Hypochromasia 1+ 11/07/17 20:44: Lactic Acid 0.5 11/07/17 20:44: Sodium 136, Potassium 4.9, Chloride 106, Carbon Dioxide 21, Anion Gap 13.9, BUN 42 H, Creatinine 3.77 H, Estimated Creat Clear 22, Estimated GFR 12 L*, Est GFR ( Amer) 14 L*, Glucose 340 H, Calcium 9.4 11/08/17 06:20: POC Glucose 370 H* Medical History: Reports:: Chronic Obstructive Pulmonary Disease (COPD), Congenital Heart Disease, Coronary Artery Disease, Diabetes Mellitus Type 2, Hyperlipidemia, Hypertension, Myocardial Infarction, Renal Disease Denies:: Cancer, Diabetes Mellitus Type 1, Internal Pacemaker, MRSA Assessment and Plan (1) Cellulitis Current visit: Yes Status: Acute Qualifiers: Site of cellulitis: extremity Site of cellulitis of extremity: lower extremity Laterality: right Qualified Code(s): L03.115 - Cellulitis of right lower limb Category: Medical Code(s): L03.90 - Cellulitis, unspecified (2) Chronic renal failure Current visit: Yes Status: Acute Qualifiers: Chronic kidney disease stage: unspecified stage Qualified Code(s): N18.9 - Chronic kidney disease, unspecified Category: Medical Code(s): N18.9 - Chronic kidney disease, unspecified (3) Diabetes mellitus Current visit: Yes Status: Acute Qualifiers: Diabetes mellitus type: type 1 Diabetes mellitus complication status: with unspecified complications Qualified Code(s): E10.8 - Type 1 diabetes mellitus with unspecified complications Category: Medical Code(s): E11.9 - Type 2 diabetes mellitus without complications (4) Thrombocytopenia Current visit: Yes Status: Acute Category: Medical Code(s): D69.6 - Thrombocytopenia, unspecified - Assessment and plan all Dx Assessment and Plan for all problems:: BASED ON PATIENT FACTORS, RECOMMEND INITIATING VANCOMYCIN AT 2,000MG IV ONCE, FOLLOWED BY 1,500MG Q48H. PHARMACY WILL ADJUST DOSE APPROPRIATE AND CONTINUE TO FOLLOW. -MARY LAICE THORNE, ROSALIAD
[2017-11-08 08:57] LABS: Basophils # 0.1 K/mm3 (0-0.2); Basophils % 0.3 % (0.1-2.0); Eosinophils # 0.2 K/mm3 (0.0-0.4); Hematocrit 34.2 % (37.0-47.0); Lymphocytes # 1.1 K/mm3 (0.7-4.5); Lymphocytes % 6.5 K/mm3 (10-50); Mean Corpuscular HGB Conc 29.6 g/dL (31.8-35.4); Mean Corpuscular Hemoglobin 26.3 pg (27.0-31.2); Mean Corpuscular Volume 88.9 fl (81-99); Mean Platelet Volume 10.4 fl (7.4-10.4); Monocytes # 0.8 K/mm3 (0.1-1.0); Monocytes % 4.7 % (1.7-9.3); Neutrophils # 14.3 K/mm3 (1.8-7.8); Neutrophils % 87.6 % (37.0-80.0); Red Blood Count 3.85 M/mm3 (4.20-5.40); Red Cell Distribution Width 14.3 % (11.5-17.5); White Blood Count 16.3 K/mm3 (4.8-10.8)
[2017-11-08 09:05] LABS: Anion Gap 14.1 mEq/L (5-15); Calcium 8.9 mg/dL (8.5-10.1); Platelet Count 41 K/mm3 (142-424); Potassium 5.1 mmoL/L (3.5-5.1)
--- NOTE | 2017-11-08 09:23 | Pharmacy Consult Notes ---
[facility] Pharmacy VTE Monitoring - Patient Demographics Admission date: 11/07/17 Report Date: 11/08/17 Time: 09:22 Allergies/Adverse Reactions: Patient Allergies Penicillins [PENICILLINS] Allergy (Intermediate, Verified 11/06/17 19:54) I-RASH Sulfa (Sulfonamide Antibiotics) [SULFA (SULFONAMIDE ANTIBIOTICS)] Allergy ( Unknown, Verified 11/06/17 19:54) Height: 1.75 m Weight: 94.858 kg Patient Problems: Current Active Problems Thrombocytopenia (Acute) Chronic renal failure (Acute) Leg laceration (Acute) Cellulitis (Acute) Diabetes mellitus (Acute) - VTE Risk Labs: VTE Related Lab Results Hgb 12.4 g/dL (12.2-16.2) 11/07/17 20:44 Hct 34.2 % (37.0-47.0) L 11/08/17 08:25 Plt Count 41 K/mm3 (142-424) L* 11/08/17 08:25 BUN 45 mg/dL (7-18) H 11/08/17 08:25 Creatinine 3.90 mg/dL (0.55-1.02) H 11/08/17 08:25 Estimated Creat Clear 20 mL/min (0-300) 11/08/17 08:25 Was VTE Risk Assessment Performed: Yes VTE Score: 13 VTE Risk Level: Moderate Risk - Prophylaxis VTE Prophylaxis Ordered?: Yes Types of VTE Prophylaxis: TEDS Knee High Location of Applied Device: Left Leg - VTE Diagnosis Confirmed Treatment or plan recommended: Continue Current Treatment
[2017-11-08 09:24] LABS: Hemoglobin 10.3 g/dL (12.2-16.2)
[2017-11-08 09:41] LABS: Eosinophils % 1 % (0-3); Lymphocytes % 4 % (10-50); Monocytes % 4 % (2-9); Neutrophils % 88 % (42-76); Total Cells Counted 100
[2017-11-08 09:42] LABS: RBC Morphology Normal
--- NOTE | 2017-11-08 14:57 | Progress Note ---
Internal Medicine - PN: Subj *Date: 11/08/17 *Time: 14:53 Interval history: I was asked to see the patient due to declining blood pressure readings. Clinically she is stable. The wound was examined. A significant amount of wound sealant material was removed from the edge of the wound. Serosanguineous drainage was expressed from under the flap. Culture was obtained. The wound was redressed using Telfa sterile gauze and Coban. The patient tolerated the procedure well. Her blood pressure was 90/50 after the procedure. Carvedilol will be decreased to 12.5 twice daily and clonidine will be discontinued for now. Exam Vital signs and Labs for Last 24 Hours: Temp Pulse Resp BP Pulse Ox 98.1 F 67 18 85/52 99 11/08/17 07:09 11/08/17 13:00 11/08/17 08:00 11/08/17 13:00 11/08/17 13:00 Laboratory Results - last 24 hr 11/07/17 19:20: POC Glucose 347 H* 11/07/17 20:44: WBC 12.1 H, RBC 4.29, Hgb 12.4, Hct 36.6 L, MCV 85.3, MCH 28.8, MCHC 33.8, RDW 14.0, Plt Count 36 L*, MPV 11.4 H, Neut % (Auto) 88.9 H, Lymph % (Auto) 5.0 L, [place] % (Auto) 3.2, Eos % (Auto) 2.7, Baso % (Auto) 0.3, Neut # ( Auto) 10.7 H, Lymph # (Auto) 0.6 L, [place] # (Auto) 0.4, Eos # (Auto) 0.3, Baso # (Auto) 0.0, Total Counted 100, Neutrophils % (Manual) 83 H, Band Neutrophils % 7.0, Lymphocytes % (Manual) 7 L, Monocytes % (Manual) 2, Eosinophils % (Manual) 1, Platelet Estimate Marked decrease, Hypochromasia 1+ 11/07/17 20:44: Lactic Acid 0.5 11/07/17 20:44: Sodium 136, Potassium 4.9, Chloride 106, Carbon Dioxide 21, Anion Gap 13.9, BUN 42 H, Creatinine 3.77 H, Estimated Creat Clear 22, Estimated GFR 12 L*, Est GFR ( Amer) 14 L*, Glucose 340 H, Calcium 9.4 11/08/17 06:20: POC Glucose 370 H* 11/08/17 08:25: WBC 16.3 H D, RBC 3.85 L, Hgb 10.3 L D, Hct 34.2 L, MCV 88.9, MCH 26.3 L, MCHC 29.6 L, RDW 14.3, Plt Count 41 L*, MPV 10.4, Neut % (Auto) 87.6 H, Lymph % (Auto) 6.5 L, [place] % (Auto) 4.7, Eos % (Auto) 1.0, Baso % (Auto ) 0.3, Neut # (Auto) 14.3 H, Lymph # (Auto) 1.1, [place] # (Auto) 0.8, Eos # (Auto ) 0.2, Baso # (Auto) 0.1, Total Counted 100, Neutrophils % (Manual) 88 H, Band Neutrophils % 1.0, Lymphocytes % (Manual) 4 L, Monocytes % (Manual) 4, Eosinophils % (Manual) 1, Metamyelocytes % 2.0 H, Platelet Estimate Marked dec, RBC Morphology Normal 11/08/17 08:25: Sodium 136, Potassium 5.1, Chloride 109 H, Carbon Dioxide 18 L, Anion Gap 14.1, BUN 45 H, Creatinine 3.90 H, Estimated Creat Clear 20, Estimated GFR 11 L*, Est GFR ( Amer) 14 L*, Glucose 307 H, Calcium 8.9 11/08/17 11:17: POC Glucose 215 H I & O for Last 24 hours: Intake & Output 11/06/17 11/07/17 11/08/17 11/09/17 11:59 11:59 11:59 11:59 Intake Total 915 / 915 120 / 120 Output Total 250 / 250 Balance 665 / 665 120 / 120 Weight 209 lb 2 oz Microbiology Reports for the Last 24 Hours: Microbiology 11/07/17 20:44 Leg,Right Gram Stain - Final - Constitutional no acute distress - *Routine Neck Exam Absent: JVD - *Routine Respiratory Exam Absent: respiratory distress - *Routine Cardiovascular Exam Present: RRR - *Routine Extremities Exam Comments: The wound was addressed as described above. She has bilateral 3+ leg edema. Assessment and Plan (1) Cellulitis Current visit: Yes Status: Acute Qualifiers: Site of cellulitis: extremity Site of cellulitis of extremity: lower extremity Laterality: right Qualified Code(s): L03.115 - Cellulitis of right lower limb Category: Medical Code(s): L03.90 - Cellulitis, unspecified (2) Chronic renal failure Current visit: Yes Status: Acute Qualifiers: Chronic kidney disease stage: unspecified stage Qualified Code(s): N18.9 - Chronic kidney disease, unspecified Category: Medical Code(s): N18.9 - Chronic kidney disease, unspecified (3) Diabetes mellitus Current visit: Yes Status: Acute Qualifiers: Diabetes mellitus type: type 1 Diabetes mellitus complication status: with unspecified complications Qualified Code(s): E10.8 - Type 1 diabetes mellitus with unspecified complications Category: Medical Code(s): E11.9 - Type 2 diabetes mellitus without complications (4) Thrombocytopenia Current visit: Yes Status: Acute Category: Medical Code(s): D69.6 - Thrombocytopenia, unspecified - Assessment and plan all Dx Assessment and Plan for all problems:: Decrease carvedilol and discontinue clonidine for now due to low blood pressure.
--- NOTE | 2017-11-09 08:06 | Progress Note ---
Internal Medicine - PN: Subj *Date: 11/09/17 *Time: 08:03 Interval history: Patient feels better than she did yesterday, has been up and around a little bit on her leg although it still hurts. Has had no fever. Exam Vital signs and Labs for Last 24 Hours: Temp Pulse Resp BP Pulse Ox 98.7 F 62 18 102/51 97 11/09/17 07:35 11/09/17 07:35 11/09/17 07:35 11/09/17 07:35 11/09/17 07:35 Laboratory Results - last 24 hr 11/08/17 08:25: WBC 16.3 H D, RBC 3.85 L, Hgb 10.3 L D, Hct 34.2 L, MCV 88.9, MCH 26.3 L, MCHC 29.6 L, RDW 14.3, Plt Count 41 L*, MPV 10.4, Neut % (Auto) 87.6 H, Lymph % (Auto) 6.5 L, [place] % (Auto) 4.7, Eos % (Auto) 1.0, Baso % (Auto ) 0.3, Neut # (Auto) 14.3 H, Lymph # (Auto) 1.1, [place] # (Auto) 0.8, Eos # (Auto ) 0.2, Baso # (Auto) 0.1, Total Counted 100, Neutrophils % (Manual) 88 H, Band Neutrophils % 1.0, Lymphocytes % (Manual) 4 L, Monocytes % (Manual) 4, Eosinophils % (Manual) 1, Metamyelocytes % 2.0 H, Platelet Estimate Marked dec, RBC Morphology Normal 11/08/17 08:25: Sodium 136, Potassium 5.1, Chloride 109 H, Carbon Dioxide 18 L, Anion Gap 14.1, BUN 45 H, Creatinine 3.90 H, Estimated Creat Clear 20, Estimated GFR 11 L*, Est GFR ( Amer) 14 L*, Glucose 307 H, Calcium 8.9 11/08/17 11:17: POC Glucose 215 H 11/08/17 16:31: POC Glucose 146 H 11/08/17 20:40: POC Glucose 284 H 11/09/17 06:06: POC Glucose 165 H I & O for Last 24 hours: Intake & Output 11/06/17 11/07/17 11/08/17 11/09/17 11:59 11:59 11:59 11:59 Intake Total 915 / 915 3218 / 3218 Output Total 250 / 250 200 / 200 Balance 665 / 665 3018 / 3018 Weight 209 lb 2 oz 209 lb 2 oz Microbiology Reports for the Last 24 Hours: Microbiology 11/08/17 15:00 Leg,Right Gram Stain - Final 11/08/17 15:00 Leg,Right Wound Culture - Preliminary 11/07/17 20:44 Leg,Right Gram Stain - Final 11/07/17 20:44 Leg,Right Wound Culture - Preliminary NO GROWTH AFTER 24 HOURS Narrative: Patient is pleasant, alert, oriented 3. Heart rate regular, lungs are clear. Wound was unwrapped, flap sutures on the anterior lower leg are well positioned. The flap itself looks yellowish in color but does not have greater dusky elements. Has no significant bleeding or purulent drainage. The edge of the wound looks great with no redness. Distal pulses are good. Assessment and Plan (1) Cellulitis Current visit: Yes Status: Acute Qualifiers: Site of cellulitis: extremity Site of cellulitis of extremity: lower extremity Laterality: right Qualified Code(s): L03.115 - Cellulitis of right lower limb Category: Medical Code(s): L03.90 - Cellulitis, unspecified Overall improving. Another dose of vancomycin today. Consider home health discharge tomorrow versus ongoing inpatient/swing bed wound care. (2) Chronic renal failure Current visit: Yes Status: Acute Qualifiers: Chronic kidney disease stage: unspecified stage Qualified Code(s): N18.9 - Chronic kidney disease, unspecified Category: Medical Code(s): N18.9 - Chronic kidney disease, unspecified Renal function is at baseline. Patient has severed care from her technical assistance consultant because she does not wish to go on dialysis. (3) Diabetes mellitus Current visit: Yes Status: Acute Qualifiers: Diabetes mellitus type: type 1 Diabetes mellitus complication status: with unspecified complications Qualified Code(s): E10.8 - Type 1 diabetes mellitus with unspecified complications Category: Medical Code(s): E11.9 - Type 2 diabetes mellitus without complications Continue to watch carefully. (4) Thrombocytopenia Current visit: Yes Status: Acute Category: Medical Code(s): D69.6 - Thrombocytopenia, unspecified No active bleeding. Continue current management. Blood counts tomorrow (5) Low blood pressure Current visit: Yes Status: Acute Category: Medical Code(s): I95.9 - Hypotension, unspecified Cross coverage note from yesterday reviewed and appreciated. Agree with lowering dose of blood pressure medications. Cautious fluid bolus today given the slight bump in her creatinine and her low blood pressure.
[2017-11-10 05:32] LABS: Basophils % 0.3 % (0.1-2.0); Eosinophils # 0.2 K/mm3 (0.0-0.4); Eosinophils % 3.2 % (0.1-12.0); Hemoglobin 8.4 g/dL (12.2-16.2); Lymphocytes # 1.5 K/mm3 (0.7-4.5); Mean Corpuscular HGB Conc 31.6 g/dL (31.8-35.4); Mean Corpuscular Hemoglobin 27.3 pg (27.0-31.2); Mean Corpuscular Volume 86.3 fl (81-99); Mean Platelet Volume 10.7 fl (7.4-10.4); Monocytes # 0.4 K/mm3 (0.1-1.0); Monocytes % 6.4 % (1.7-9.3); Neutrophils # 3.6 K/mm3 (1.8-7.8); Neutrophils % 64.1 % (37.0-80.0); Red Blood Count 3.07 M/mm3 (4.20-5.40); Red Cell Distribution Width 14.3 % (11.5-17.5); White Blood Count 5.7 K/mm3 (4.8-10.8)
[2017-11-10 05:35] LABS: Platelet Count 39 K/mm3 (142-424)
[2017-11-10 05:36] LABS: Hematocrit 26.5 % (37.0-47.0)
[2017-11-10 05:39] LABS: Anion Gap 12.7 mEq/L (5-15); Calcium 8.5 mg/dL (8.5-10.1); Potassium 5.7 mmoL/L (3.5-5.1)
[2017-11-10 07:36] VITALS: BP 121/74
--- NOTE | 2017-11-10 08:06 | Discharge Summary ---
General - General Admission date:: 11/07/17 Discharge date: 11/10/17 HPI HPI: this wf who has iddm and crf had trip like injury with flap like lac rt lower leg - seen in the ed and closed and dev pain and reddness and presented to ed - nt seen in the emergency department last night and had a large laceration on her right nelson sutured. She has increasing pain, redness, swelling around the site. She is on Tylenol 3 which is not helping the pain at all. She says she hurts severely from her knee down to her ankle. No numbness or weakness. Above note per Dr. Avalos from admission. Patient was admitted for intravenous antibiotics given her immunosuppressive status and ongoing monitoring of her chronic medical problems. Hospital Course Hospital Course: She was admitted, placed on vancomycin. This was dosed every 48 hours because of her renal issues. I discussed once again with her her creatinine and chronic renal failure and she reiterated her desire not to be on dialysis and states that she "does not want to go see a kidney specialist." Wound was dressed and debrided as noted in progress notes. Cultures from wound were negative. Blood cultures were negative and patient responded well to antibiotics. Wound improved without drainage or bleeding. Patient was able to get up and walk around on her affected right leg, albeit with some pain. This morning she is doing well, eating well, able to be mobile in spite of the pain in the right leg. She will be discharged home with plans as noted. Of note we will stop and spironolactone given her elevating creatinine levels. Objective Vital signs: Temp Pulse Resp BP Pulse Ox 97.8 F 69 16 121/74 98 11/10/17 07:34 11/10/17 07:34 11/10/17 07:34 11/10/17 07:34 11/10/17 07:34 Narrative: Patient is alert. Oriented 3. Pleasant. Talkative. Cardiopulmonary exam unremarkable. Right leg has good distal pulses. The V-shaped laceration on the anterior right nelson is well apposition with sutures, the skin flap area is slightly yellow but no duskiness or perfusion deficits noted. There is no purulent drainage or exudate from the wound. There is good granulation tissue within the flap itself. Results Labs on day of discharge: Labs from last 24 hours 11/10/17 11/10/17 11/10/17 06:06 05:15 05:15 WBC 5.7 D RBC 3.07 L Hgb 8.4 L Hct 26.5 L MCV 86.3 MCH 27.3 MCHC 31.6 L RDW 14.3 Plt Count 39 L* MPV 10.7 H Neut % (Auto) 64.1 Lymph % (Auto) 26.0 [place] % (Auto) 6.4 Eos % (Auto) 3.2 Baso % (Auto) 0.3 Neut # (Auto) 3.6 Lymph # (Auto) 1.5 [place] # (Auto) 0.4 Eos # (Auto) 0.2 Baso # (Auto) 0.0 Sodium 136 Potassium 5.7 H Chloride 110 H Carbon Dioxide 19 L Anion Gap 12.7 BUN 62 H D Creatinine 4.56 H Estimated Creat Clear 18 Estimated GFR 9 L* Est GFR ( Amer) 11 L* D Glucose 184 H POC Glucose 184 H Calcium 8.5 11/09/17 11/09/17 11/09/17 20:36 16:19 11:39 WBC RBC Hgb Hct MCV MCH MCHC RDW Plt Count MPV Neut % (Auto) Lymph % (Auto) [place] % (Auto) Eos % (Auto) Baso % (Auto) Neut # (Auto) Lymph # (Auto) [place] # (Auto) Eos # (Auto) Baso # (Auto) Sodium Potassium Chloride Carbon Dioxide Anion Gap BUN Creatinine Estimated Creat Clear Estimated GFR Est GFR ( Amer) Glucose POC Glucose 169 H 217 H 230 H Calcium Preliminary micro results at discharge 11/07/17 21:13 Blood Culture - Preliminary Blood NO GROWTH AFTER 48 HOURS 11/07/17 21:13 Blood Culture - Preliminary Blood NO GROWTH AFTER 48 HOURS 11/07/17 20:44 Wound Culture - Preliminary Leg,Right NO GROWTH AFTER 48 HOURS 11/08/17 15:00 Wound Culture - Preliminary Leg,Right DS: Diagnosis - Discharge Diagnosis (1) Cellulitis Status: Acute (2) Chronic renal failure Status: Acute (3) Diabetes mellitus Status: Acute (4) Thrombocytopenia Status: Acute (5) Low blood pressure Status: Acute Discharge Plan - Patient Discharge Instructions ACTIVITY: Continue current activity DIET: continue same diet - Follow up Plan Follow up with: Sabrina Torres APRN [Advanced Practice Nurse] - 11/13/17 Disposition: Home, Self-Senior Living Medications: Home Medications Medication Instructions Recorded Confirmed Type Levothyroxine Sodium 88 mcg PO DAILY 06/03/17 11/07/17 History [Levothyroxine 88mcg (0.088mg) Tab] Albuterol Sulfate [Albuterol HFA 2 puff INHALATION Q6H 09/04/17 11/07/17 History Inhaler] Insulin Regular, Human [Humulin R] 1 sliding scale dose SUB-Q QID 09/04/1711/07 History Isosorbide Mononitrate [Imdur 60mg 60 mg PO DAILY 09/04/17 11/08/17 History ER tablet] Omeprazole [Omeprazole 40mg 40 mg PO DAILY 09/04/17 11/07/17 History Capsule] Spironolactone [Aldactone 50mg Tab] 50 mg PO DAILY 09/04/17 11/08/17 History cloNIDine HCl [cloNIDine 0.1mg 0.1 mg PO BID 09/04/17 11/07/17 History Tablet] insulin aspar prt-insulin aspart 55 unit SUB-Q QPM 09/04/17 11/07/17 History 100 unit/mL (70-30) subcutaneous soln insulin aspar prt-insulin aspart 65 unit SUB-Q QAM 09/04/17 11/07/17 History 100 unit/mL (70-30) subcutaneous soln Acetaminophen with Codeine 1 tab PO Q6HP PRN 11/07/17 11/07/17 History [Acetaminophen w/Codeine #3 Tablet] Prescriptions/Medication Reconciliation: Continue carvedilol 25 mg tablet 25 mg PO BID #60 tab Omeprazole [Omeprazole 40mg Capsule] 40 mg PO DAILY Isosorbide Mononitrate [Imdur 60mg ER tablet] 60 mg PO DAILY Insulin Regular, Human [Humulin R] 1 sliding scale dose SUB-Q QID cloNIDine HCl [cloNIDine 0.1mg Tablet] 0.1 mg PO BID Albuterol Sulfate [Albuterol HFA Inhaler] 2 puff INHALATION Q6H Levothyroxine Sodium [Levothyroxine 88mcg (0.088mg) Tab] 88 mcg PO DAILY Acetaminophen with Codeine [Acetaminophen w/Codeine #3 Tablet] 1 tab PO Q6HP PRN PRN Reason: Moderate To Severe Pain Discontinued Spironolactone [Aldactone 50mg Tab] 50 mg PO DAILY No Action insulin aspar prt-insulin aspart 100 unit/mL (70-30) subcutaneous soln 65 unit SUB-Q QAM insulin aspar prt-insulin aspart 100 unit/mL (70-30) subcutaneous soln 55 unit SUB-Q QPM
--- NOTE | 2017-11-10 08:17 | Progress Note ---
Internal Medicine - PN: Subj *Date: 11/10/17 *Time: 08:17 Exam Vital signs and Labs for Last 24 Hours: Temp Pulse Resp BP Pulse Ox 97.8 F 69 16 121/74 98 11/10/17 07:34 11/10/17 07:34 11/10/17 07:34 11/10/17 07:34 11/10/17 07:34 Laboratory Results - last 24 hr 11/09/17 11:39: POC Glucose 230 H 11/09/17 16:19: POC Glucose 217 H 11/09/17 20:36: POC Glucose 169 H 11/10/17 05:15: WBC 5.7 D, RBC 3.07 L, Hgb 8.4 L, Hct 26.5 L, MCV 86.3, MCH 27.3, MCHC 31.6 L, RDW 14.3, Plt Count 39 L*, MPV 10.7 H, Neut % (Auto) 64.1, Lymph % (Auto) 26.0, [place] % (Auto) 6.4, Eos % (Auto) 3.2, Baso % (Auto) 0.3, Neut # (Auto) 3.6, Lymph # (Auto) 1.5, [place] # (Auto) 0.4, Eos # (Auto) 0.2, Baso # (Auto) 0.0 11/10/17 05:15: Sodium 136, Potassium 5.7 H, Chloride 110 H, Carbon Dioxide 19 L , Anion Gap 12.7, BUN 62 H D, Creatinine 4.56 H, Estimated Creat Clear 18, Estimated GFR 9 L*, Est GFR ( Amer) 11 L* D, Glucose 184 H, Calcium 8.5 11/10/17 06:06: POC Glucose 184 H I & O for Last 24 hours: Intake & Output 11/07/17 11/08/17 11/09/17 11/10/17 23:59 23:59 23:59 23:59 Intake Total 3537 / 3537 2733 / 2733 Output Total 250 / 250 200 / 200 Balance 3287 / 3287 2533 / 2533 Weight 94.347 kg 94.858 kg 94.858 kg 100.045 kg Microbiology Reports for the Last 24 Hours: Microbiology 11/07/17 21:13 Blood Blood Culture - Preliminary NO GROWTH AFTER 48 HOURS 11/07/17 21:13 Blood Blood Culture - Preliminary NO GROWTH AFTER 48 HOURS 11/07/17 20:44 Leg,Right Gram Stain - Final 11/07/17 20:44 Leg,Right Wound Culture - Preliminary NO GROWTH AFTER 48 HOURS 11/08/17 15:00 Leg,Right Gram Stain - Final 11/08/17 15:00 Leg,Right Wound Culture - Preliminary Assessment and Plan (1) Cellulitis Current visit: Yes Status: Acute Qualifiers: Site of cellulitis: extremity Site of cellulitis of extremity: lower extremity Laterality: right Qualified Code(s): L03.115 - Cellulitis of right lower limb Category: Medical Code(s): L03.90 - Cellulitis, unspecified (2) Chronic renal failure Current visit: Yes Status: Acute Qualifiers: Chronic kidney disease stage: unspecified stage Qualified Code(s): N18.9 - Chronic kidney disease, unspecified Category: Medical Code(s): N18.9 - Chronic kidney disease, unspecified (3) Diabetes mellitus Current visit: Yes Status: Acute Qualifiers: Diabetes mellitus type: type 1 Diabetes mellitus complication status: with unspecified complications Qualified Code(s): E10.8 - Type 1 diabetes mellitus with unspecified complications Category: Medical Code(s): E11.9 - Type 2 diabetes mellitus without complications (4) Thrombocytopenia Current visit: Yes Status: Acute Category: Medical Code(s): D69.6 - Thrombocytopenia, unspecified (5) Low blood pressure Current visit: Yes Status: Acute Category: Medical Code(s): I95.9 - Hypotension, unspecified The patient's infection will respond to the chosen ABx?: Yes Is the patient receiving the right drug, dose, and route?: Yes Could a more targeted ABx be ordered?: No (D/C TODAY)
== END 2017-11-10 10:40 | disposition home or self-care (01) ==
LOC: ER 18:14 → 2ND 18:14 → OBSVTOIN 22:05 → 2ND 22:08
PROVIDERS: ADMIT Emergency Medicine; ATTEND Emergency Medicine
CPT/HCPCS: 36415; 80048; 82962; 83605; 85007; 85025; 87040; 87070; 87077; 87186; 87205; 96365; 99211; 99284; J2405; J3370

== ENCOUNTER → 2017-11-20 09:23 | Outpatient (REF) | payer MEDICARE, OTHER, SELFPAY | LOC: LAB 09:23 | PROVIDERS: Visit Provider Surgery | DX: L03.115 Cellulitis of right lower limb (principal) | CPT/HCPCS: 87070; 87077; 87186; 87205 ==

== ENCOUNTER 2017-12-04 00:16 | Observation (INO) ==
[2017-12-04 00:38] LABS: Basophils % 0.7 % (0.1-2.0); Eosinophils # 0.2 K/mm3 (0.0-0.4); Hematocrit 36.1 % (37.0-47.0); Hemoglobin 10.9 g/dL (12.2-16.2); Lymphocytes # 1.4 K/mm3 (0.7-4.5); Lymphocytes % 27.6 K/mm3 (10-50); Mean Corpuscular HGB Conc 30.2 g/dL (31.8-35.4); Mean Platelet Volume 10.3 fl (7.4-10.4); Monocytes # 0.4 K/mm3 (0.1-1.0); Monocytes % 7.2 % (1.7-9.3); Neutrophils # 3.1 K/mm3 (1.8-7.8); Neutrophils % 60.5 % (37.0-80.0); Red Cell Distribution Width 14.7 % (11.5-17.5); White Blood Count 5.1 K/mm3 (4.8-10.8)
[2017-12-04 00:44] LABS: Platelet Count 32 K/mm3 (142-424)
[2017-12-04 00:48] LABS: Albumin Level 2.7 gm/dL (3.4-5.0); Anion Gap 12.8 mEq/L (5-15); Bilirubin,Direct 0.1 mg/dL (0.0-0.2); Bilirubin,Indirect 0.6 mg/dL (0.0-0.9); Bilirubin,Total 0.7 mg/dL (0.2-1.0); Calcium 9.2 mg/dL (8.5-10.1); Potassium 4.8 mmoL/L (3.5-5.1); Total Protein,Serum 6.7 gm/dL (6.4-8.2)
--- NOTE | 2017-12-04 02:28 | Emergency Department Note ---
ED Disposition Clinical Impression: Unstable angina pectoris, Thrombocytopenia Chronic renal failure Qualifiers: Chronic kidney disease stage: stage 4 (severe) Qualified Code(s): N18.4 - Chronic kidney disease, stage 4 (severe) Diabetes mellitus Qualifiers: Diabetes mellitus type: type 1 Diabetes mellitus complication status: with kidney complications Diabetes mellitus complication detail: with nephropathy Qualified Code(s): E10.21 - Type 1 diabetes mellitus with diabetic nephropathy Disposition: Admitted as Observation Condition on Discharge: Good Referrals: Willie Avalos MD [Primary Care Provider] - - Critical Care Critical Care Time: No Attestation: On 12/04/17, the high probability of a clinically significant, sudden or life threatening deterioration of the following system(s) required my full and direct attention, intervention and personal management. The time I documented below is in addition to time spent performing reported procedures but includes the following listed in this critical care notation. Medical Decision Making - Medical Records Medical records reviewed: Yes: I reviewed the patient's medical records. - Black Inquiry Pt receiving controlled substance: No Vital Signs: 12/04/17 00:21 12/04/17 00:44 12/04/17 01:17 Temperature 97.6 F Temperature Source Oral Pulse Rate [Left Radial] 98 H 78 71 Respiratory Rate 14 18 18 Blood Pressure [Right Arm] 198/113 177/98 234/122 Blood Pressure Mean [Right Arm] 141 124 159 Blood Pressure Source [Right Arm] Automatic Cuff Automatic Cuff Automatic Cuff Blood Pressure Position [Right Arm] Sitting Sitting Sitting 02 Sat by Pulse Oximetry 98 98 98 Oxygen Delivery Method Room Air 12/04/17 02:00 Temperature Temperature Source Pulse Rate [Left Radial] 66 Respiratory Rate 20 Blood Pressure [Right Arm] 168/98 Blood Pressure Mean [Right Arm] 121 Blood Pressure Source [Right Arm] Manual Cuff/ Auscultation Blood Pressure Position [Right Arm] 02 Sat by Pulse Oximetry 98 Oxygen Delivery Method - Lab Data Lab results reviewed: Yes: I reviewed the patient's lab results. Lab Results 12/04/17 00:15: WBC 5.1, RBC 4.20, Hgb 10.9 L, Hct 36.1 L, MCV 86.0, MCH 26.0 L , MCHC 30.2 L, RDW 14.7, Plt Count 32 L*, MPV 10.3, Neut % (Auto) 60.5, Lymph % (Auto) 27.6, [place] % (Auto) 7.2, Eos % (Auto) 4.0, Baso % (Auto) 0.7, Neut # ( Auto) 3.1, Lymph # (Auto) 1.4, [place] # (Auto) 0.4, Eos # (Auto) 0.2, Baso # (Auto ) 0.0 12/04/17 00:15: Troponin I 0.05, Amylase 25, Lipase 310 12/04/17 00:15: Sodium 136, Potassium 4.8, Chloride 109 H, Carbon Dioxide 19 L, Anion Gap 12.8, BUN 40 H, Creatinine 3.82 H, Estimated Creat Clear 20, Estimated GFR 12 L*, Est GFR ( Amer) 14 L*, Glucose 312 H, Calcium 9.2, Total Bilirubin 0.7, Direct Bilirubin 0.1, Indirect Bilirubin 0.6, AST 20, ALT 18, Alkaline Phosphatase 118 H, Total Protein 6.7, Albumin 2.7 L Result diagrams: 12/04/17 00:15 12/04/17 00:15 Orders (Tests/Meds): ED MEDICATIONS Discontinued Medications Generic Name Dose Route Start Last Admin Trade Name Freq PRN Reason Stop Dose Admin Clonidine HCl 0.1 mg 12/04/17 00:40 12/04/17 00:41 Clonidine 0.1mg Tablet PO 12/04/17 00:41 0.1 mg ONCE ONE Administration Nitroglycerin 1 gm 12/04/17 02:19 12/04/17 02:21 Nitroglycerin 1 Inch Oint Udp TD 12/04/17 02:20 1 gm ONCE ONE Administration ORDERS Category Date Time Status XR chest 2V Stat Exams 12/04/17 00:30 Taken - Radiology Data #1 Image(s): Chest Image Reviewed: Yes I reviewed the patient's radiology image Preliminary Findings: Normal/NAD - ECG Data Tracing #1 I reviewed this ECG and interpreted as documented below: Normal Sinus Rhythm: Yes Ischemic changes: non-specific ST-T wave changes ECG compared to prior tracings: there are no significant changes Chest Pain HPI - General Chief Complaint: Chest Pain Stated Complaint: chest pain Time Seen by Provider: 12/04/17 02:23 Mode of Arrival: EMS Source of Information: Patient, Significant Other, Medical Record Limitations: No Limitations Description of Symptoms (Recalled from ER Triage Doc. by RN): 3 days of intermittent chest pain worse with exertion, pain relief with nitro, has headache - History of Present Illness HPI narrative: wf with known ht dis and iddm has had chest pain over the last 3 days - worse today and called ems and pos relief with ntg MD complaint: chest pain indicative of cardiac Onset (ago): day(s) Duration: intermittent, now resolved Activity at onset: during rest Pain location: substernal Severity: similar to previous episodes Quality: tightness Risk Factors for CAD: Hypertension, Hypercholesterolemia, Family Hx of CAD, Diabetes Treatments prior to or on arrival for Cardiac Chest Pain: aspirin, nitroglycerin - DALE Score Non-Stemi Age of patient: 65 yrs or more Number of risk factors for CAD: Presence of 3 or more Prior coronary artery stenosis(seen in coronary angiography): Less than 50% ST-Segment deviation on ECG (more than 1 min): Absent Prior aspirin intake: ASA intake in the last 7 days Severe anginal chest pain: Two or more episodes in last 24 hours Elevated cardiac markers(CK-MB or troponin): Absent Non-Stemi Risk Score: 4 - Related Data Prior Cardiac Testing/Procedures: Cardiac Angiogram On Oral Contraceptives: No Home Medications Medication Instructions Recorded Confirmed Levothyroxine Sodium 88 mcg PO DAILY 06/03/17 12/04/17 [Levothyroxine 88mcg (0.088mg) Tab] Insulin Regular, Human [Humulin R] 1 sliding scale dose SUB-Q QID 09/04/1712/04 Isosorbide Mononitrate [Imdur 60mg 60 mg PO DAILY 09/04/17 12/04/17 ER tablet] Omeprazole [Omeprazole 40mg 40 mg PO DAILY 09/04/17 12/04/17 Capsule] cloNIDine HCl [cloNIDine 0.1mg 0.1 mg PO BID 09/04/17 12/04/17 Tablet] insulin aspar prt-insulin aspart 55 unit SUB-Q QPM 09/04/17 12/04/17 100 unit/mL (70-30) subcutaneous soln insulin aspar prt-insulin aspart 65 unit SUB-Q QAM 09/04/17 12/04/17 100 unit/mL (70-30) subcutaneous soln Previous Rx's Medication Instructions Recorded carvedilol 25 mg tablet 25 mg PO BID #60 tab 08/19/17 albuterol sulfate HFA 90 2 puff INHALATION Q6H #18 g 11/21/17 mcg/actuation aerosol inhaler Allergies Allergy/AdvReac Type Severity Reaction Status Date / Time Penicillins [PENICILLINS] Allergy Intermediate I-RASH Verified 11/13/17 13:20 Sulfa (Sulfonamide Allergy Unknown Verified 11/13/17 13:20 Antibiotics) [SULFA (SULFONAMIDE ANTIBIOTICS)] [facility] History I have reviewed the patient's past medical history: Yes Medical History: Reports:: Chronic Obstructive Pulmonary Disease (COPD), Congenital Heart Disease, Coronary Artery Disease, Diabetes Mellitus Type 2, Hyperlipidemia, Hypertension, Myocardial Infarction, Renal Disease Denies:: Cancer, Diabetes Mellitus Type 1, Internal Pacemaker, MRSA Other Medical History: Reports: Arthritis, Hypothyroidism, Thyroid Disease Other Surgeries: Yes: Cardiac Catheterization, Cholecystectomy, Coronary Stent, Hysterectomy-Partial, Tubal Ligation, Ureter Stent, Other (partial toe amputation). No: Pacemaker Amputation: Yes (right foot partial toe) Fractures: No Comment: gallstones, Left wrist - Social History Smoking Status: Former smoker Tobacco Type: cigarettes # Packs/Day (cigarettes): 0 #Yrs smoked (if former smoker): 0 Alcohol Intake: never Substance Use Type: denies use Occupational Status: disabled Housing: apartment Household Members: significant other - Psychiatric History Expresses thoughts of harming self/others: None Suicide Plan Description: No Plan Family Hx:: Anemia, Asthma, Cancer, Coronary Artery Disease, Diabetes, Heart Attack, Hyperlipidemia, Hypertension, Kidney Disease, Stroke, Thyroid Disorder ROS Obtained: Yes All systems reviewed & no additional complaints - Constitutional Constitutional: Denies fever(s) - Eyes Eyes: Denies change in vision - ENT Ears, Nose, Mouth, and Throat: Denies sore throat - Cardiovascular Cardiovascular: Reports chest pain - Respiratory Respiratory: No cough - Gastrointestinal Gastrointestingal: Denies: abdominal pain - Genitourinary Female Genitourinary: Denies hematuria - Musculoskeletal Musculoskeletal: Denies joint pain - Integumentary/Breasts Skin/Breast: Denies rash - Neurologic Neurologic: Denies seizure-like activity Physical Exam - General General appearance: in no apparent distress - Head Head exam: normocephalic - Eye Eye exam: Present: PERRL, EOMI - ENT ENT exam: Present: mucous membranes dry - Neck Neck exam: Present: trachea midline - Respiratory Respiratory exam: Present: respiratory distress, other (dec bs bilat ) - Cardiovascular Cardiovascular exam: Present: regular rate, systolic murmur, +S4 - Abdominal Exam Abdominal exam: Present: soft - Extremities Exam Extremities exam: Present: other (lower leg swelling with wraps ) - Neurological Exam Neurological exam: Present: alert, oriented X3, CN II-XII intact - Psychiatric Psychiatric exam: Present: normal affect - Skin Skin exam: Absent: rash
--- NOTE | 2017-12-04 07:38 | Pharmacy Consult Notes ---
[facility] Pharmacy VTE Monitoring - Patient Demographics Admission date: 12/04/17 Report Date: 12/04/17 Time: 07:37 Allergies/Adverse Reactions: Patient Allergies Penicillins [PENICILLINS] Allergy (Intermediate, Verified 12/04/17 03:27) I-RASH Sulfa (Sulfonamide Antibiotics) [SULFA (SULFONAMIDE ANTIBIOTICS)] Allergy ( Unknown, Verified 12/04/17 03:27) Height: 1.75 m Weight: 96.36 kg Patient Problems: Current Active Problems Thrombocytopenia (Acute) Chronic renal failure (Acute) Diabetes mellitus (Acute) Unstable angina pectoris (Acute) - VTE Risk Labs: VTE Related Lab Results Hgb 10.9 g/dL (12.2-16.2) L 12/04/17 00:15 Hct 36.1 % (37.0-47.0) L 12/04/17 00:15 Plt Count 32 K/mm3 (142-424) L* 12/04/17 00:15 BUN 40 mg/dL (7-18) H 12/04/17 00:15 Creatinine 3.82 mg/dL (0.55-1.02) H 12/04/17 00:15 Estimated Creat Clear 20 mL/min (0-300) 12/04/17 00:15 Was VTE Risk Assessment Performed: Yes VTE Score: 4 VTE Risk Level: Low Risk Clinical Trial Participant: No - Prophylaxis VTE Prophylaxis Ordered?: Yes Types of VTE Prophylaxis: TEDS Knee High
--- NOTE | 2017-12-04 08:52 | History & Physical Report ---
*Admission Date: 12/04/17 *Chief complaint: chest pain *History of present illness: this wf with progressive chest pain which has been going over the last 3 days - pt reports being compliant with meds -pt has diabetes - pt presented to ed and was admitted for serial enz and card eval [facility] History I have reviewed the patient's past medical history: Yes Medical History: Reports:: Chronic Obstructive Pulmonary Disease (COPD), Congenital Heart Disease, Coronary Artery Disease, Diabetes Mellitus Type 2, Hyperlipidemia, Hypertension, Myocardial Infarction, Renal Disease Denies:: Cancer, Diabetes Mellitus Type 1, Internal Pacemaker, MRSA Other Medical History: Reports: Arthritis, Hypothyroidism, Thyroid Disease Other Surgeries: Yes: Cardiac Catheterization, Cholecystectomy, Coronary Stent, Hysterectomy-Partial, Tubal Ligation, Ureter Stent, Other (partial toe amputation; Lt wrist sx). No: Pacemaker Amputation: Yes (right foot partial toe) Fractures: No - *Social History Educational Level: Completed Grade School Smoking Status: Never smoker Tobacco Type: cigarettes # Packs/Day (cigarettes): 0 #Yrs smoked (if former smoker): 0 Alcohol Intake: never Substance Use Type: denies use Occupational Status: disabled Housing: house Household Members: significant other - Psychiatric History Expresses thoughts of harming self/others: None Suicide Plan Description: No Plan *Family Hx:: Anemia, Asthma, Cancer, Coronary Artery Disease, Diabetes, Heart Attack, Hyperlipidemia, Hypertension, Kidney Disease, Stroke, Thyroid Disorder Review of Systems - Review of Systems Review of systems:: pertinent systems reviewed and negative unless documented below - Constitutional Denies fever(s) - Eyes Denies change in vision - ENT Denies throat swelling - *Cardiovascular Reports chest pain at rest - *Respiratory Denies shortness of breath - *Gastrointestinal Denies abdominal pain - *Genitourinary Denies blood in urine - *Musculoskeletal Reports joint pain - Integumentary/Breasts Denies rash - *Neurologic Denies seizure-like activity - Psychiatric Reports anxiety Meds Home Medications Medication Instructions Recorded Confirmed Type Isosorbide Mononitrate [Imdur 60mg 60 mg PO DAILY 09/04/17 12/04/17 History ER tablet] Omeprazole [Omeprazole 40mg 40 mg PO DAILY 09/04/17 12/04/17 History Capsule] cloNIDine HCl [cloNIDine 0.1mg 0.1 mg PO BID 09/04/17 12/04/17 History Tablet] insulin aspar prt-insulin aspart 55 unit SUB-Q QPM 09/04/17 12/04/17 History 100 unit/mL (70-30) subcutaneous soln insulin aspar prt-insulin aspart 65 unit SUB-Q QAM 09/04/17 12/04/17 History 100 unit/mL (70-30) subcutaneous soln Clopidogrel Bisulfate [Plavix 75mg 75 mg PO DAILY 12/04/17 12/04/17 History Tab] Gabapentin [Gabapentin 400mg Cap] 400 mg PO TID 12/04/17 12/04/17 History Insulin Regular, Human [Novolin R] 0 unit IJ QIDP PRN 12/04/17 12/04/17 History Spironolactone 50 mg PO DAILY 12/04/17 12/04/17 History Allergies Allergy/AdvReac Type Severity Reaction Status Date / Time Penicillins [PENICILLINS] Allergy Intermediate I-RASH Verified 12/04/17 03:27 Sulfa (Sulfonamide Allergy Unknown Verified 12/04/17 03:27 Antibiotics) [SULFA (SULFONAMIDE ANTIBIOTICS)] Exam Vital signs and Labs for Last 24 Hours: Temp Pulse Resp BP Pulse Ox 97.6 F 73 16 185/89 99 12/04/17 07:27 12/04/17 07:27 12/04/17 07:27 12/04/17 07:27 12/04/17 07:27 Laboratory Results - last 24 hr 12/04/17 00:15: WBC 5.1, RBC 4.20, Hgb 10.9 L, Hct 36.1 L, MCV 86.0, MCH 26.0 L , MCHC 30.2 L, RDW 14.7, Plt Count 32 L*, MPV 10.3, Neut % (Auto) 60.5, Lymph % (Auto) 27.6, [place] % (Auto) 7.2, Eos % (Auto) 4.0, Baso % (Auto) 0.7, Neut # ( Auto) 3.1, Lymph # (Auto) 1.4, [place] # (Auto) 0.4, Eos # (Auto) 0.2, Baso # (Auto ) 0.0 12/04/17 00:15: Troponin I 0.05, Amylase 25, Lipase 310 12/04/17 00:15: Sodium 136, Potassium 4.8, Chloride 109 H, Carbon Dioxide 19 L, Anion Gap 12.8, BUN 40 H, Creatinine 3.82 H, Estimated Creat Clear 20, Estimated GFR 12 L*, Est GFR ( Amer) 14 L*, Glucose 312 H, Calcium 9.2, Total Bilirubin 0.7, Direct Bilirubin 0.1, Indirect Bilirubin 0.6, AST 20, ALT 18, Alkaline Phosphatase 118 H, Total Protein 6.7, Albumin 2.7 L 12/04/17 03:30: Troponin I 0.09 H 12/04/17 06:15: Troponin I 0.11 H 12/04/17 06:21: POC Glucose 241 H I & O for Last 24 hours: Intake & Output 12/01/17 12/02/17 12/03/17 12/04/17 11:59 11:59 11:59 11:59 Intake Total 124 / 124 Balance 124 / 124 Weight 216 lb 3 oz - Constitutional no acute distress - *Routine HEENT Exam Head: Present: normocephalic Eye: Present: EOMI, PERRL ENT: Present: mucous membranes dry - *Routine Neck Exam Present: supple. Absent: JVD - *Routine Respiratory Exam Present: CTA bilaterally. Absent: respiratory distress - *Routine Cardiovascular Exam Present: RRR, murmur - *Routine Abdominal Exam Present: soft - *Routine Extremities Exam Absent: joint swelling Comments: chronic changes bilat and is seeing therapy - *Routine Skin Exam Comments: chronic edema lower ext - *Routine Neurological Exam Present: alert, CN II-XII intact - Routine Psychiatric Exam Present: normal affect H&P: Result - Labs Labs: Short CBC 12/04/17 Range/Units 00:15 WBC 5.1 (4.8-10.8) K/mm3 Hgb 10.9 L (12.2-16.2) g/dL Hct 36.1 L (37.0-47.0) % Plt Count 32 L* (142-424) K/mm3 BMP 12/04/17 00:15 Sodium 136 Potassium 4.8 Chloride 109 H Carbon Dioxide 19 L BUN 40 H Creatinine 3.82 H Glucose 312 H Calcium 9.2 Cardiac Enzymes 12/04/17 12/04/17 12/04/17 Range/Units 00:15 03:30 06:15 Troponin I 0.05 0.09 H 0.11 H (0.00-0.06) ng/ml Liver Function 12/04/17 Range/Units 00:15 Total Bilirubin 0.7 (0.2-1.0) mg/dL Direct Bilirubin 0.1 (0.0-0.2) mg/dL AST 20 (15-37) U/L ALT 18 (12-78) U/L Alkaline Phosphatase 118 H (46-116) U/L Albumin 2.7 L (3.4-5.0) gm/dL Assessment and Plan (1) Angina at rest Current visit: Yes Status: Acute Category: Medical Code(s): I20.8 - Other forms of angina pectoris (2) Diabetes mellitus Current visit: Yes Status: Acute Category: Medical Code(s): E11.9 - Type 2 diabetes mellitus without complications (3) Thrombocytopenia Current visit: Yes Status: Acute Category: Medical Code(s): D69.6 - Thrombocytopenia, unspecified (4) Chronic renal failure Current visit: Yes Status: Acute Qualifiers: Chronic kidney disease stage: stage 4 (severe) Qualified Code(s): N18.4 - Chronic kidney disease, stage 4 (severe) Category: Medical Code(s): N18.9 - Chronic kidney disease, unspecified
--- NOTE | 2017-12-04 09:10 | Consult Report ---
History of Present Illness Consult date: 12/04/17 Requesting physician: Willie Avalos Consult reason: chest pain Chief complaint: chest pain Additional Medical History:: 1. CAD A. RAF to LAD, 10/14/2014. On DAPT. 2. Diabetes, poor compliance A. Retinopathy B. Recurrent LE ulcers 3. CKD, stage 5, refuses dialysis A. Sees Dr. Greer 4. Marked thrombocytopenia 5. Hypothyroidism, on supplement 6. Renal osteodystrophy History of present illness: 72-year-old white female with known history of coronary artery disease with LAD stent placed in 2014 presented to the emergency department for 3 day history of progressive episodes of chest pain. Patient received 2 sublingual nitroglycerin with significant improvement in symptoms. Blood pressure on admission to the ER was in the 180/110 range which improved after nitroglycerin. Patient's been admitted overnight with serial troponins showing slight increase. Patient initially told the ER she had been compliant with her medication, but now relates that she is unsure of what medication she is supposed to be taking and has reportedly not been able to get her medicines for several days. She does relate she is in the process of moving and has had some stress related to this process. Cardiology consulted for evaluation and recommendations. [facility] History Medical History: Reports:: Chronic Obstructive Pulmonary Disease (COPD), Congenital Heart Disease, Coronary Artery Disease, Diabetes Mellitus Type 2, Hyperlipidemia, Hypertension, Myocardial Infarction, Renal Disease Denies:: Cancer, Diabetes Mellitus Type 1, Internal Pacemaker, MRSA Other Medical History: Reports: Arthritis, Hypothyroidism, Thyroid Disease Other Surgeries: Yes: Cardiac Catheterization, Cholecystectomy, Coronary Stent, Hysterectomy-Partial, Tubal Ligation, Ureter Stent, Other (partial toe amputation; Lt wrist sx). No: Pacemaker Amputation: Yes (right foot partial toe) Fractures: No - *Social History Educational Level: Completed Grade School Smoking Status: Never smoker Tobacco Type: cigarettes # Packs/Day (cigarettes): 0 #Yrs smoked (if former smoker): 0 Alcohol Intake: never Substance Use Type: denies use Occupational Status: disabled Housing: house Household Members: significant other - Psychiatric History Expresses thoughts of harming self/others: None Suicide Plan Description: No Plan *Family Hx:: Anemia, Asthma, Cancer, Coronary Artery Disease, Diabetes, Heart Attack, Hyperlipidemia, Hypertension, Kidney Disease, Stroke, Thyroid Disorder Meds Home Medications Medication Instructions Recorded Confirmed Type Isosorbide Mononitrate [Imdur 60mg 60 mg PO DAILY 09/04/17 12/04/17 History ER tablet] Omeprazole [Omeprazole 40mg 40 mg PO DAILY 09/04/17 12/04/17 History Capsule] cloNIDine HCl [cloNIDine 0.1mg 0.1 mg PO BID 09/04/17 12/04/17 History Tablet] insulin aspar prt-insulin aspart 55 unit SUB-Q QPM 09/04/17 12/04/17 History 100 unit/mL (70-30) subcutaneous soln insulin aspar prt-insulin aspart 65 unit SUB-Q QAM 09/04/17 12/04/17 History 100 unit/mL (70-30) subcutaneous soln Clopidogrel Bisulfate [Plavix 75mg 75 mg PO DAILY 12/04/17 12/04/17 History Tab] Gabapentin [Gabapentin 400mg Cap] 400 mg PO TID 12/04/17 12/04/17 History Spironolactone 50 mg PO DAILY 12/04/17 12/04/17 History Allergies Allergy/AdvReac Type Severity Reaction Status Date / Time Penicillins [PENICILLINS] Allergy Intermediate I-RASH Verified 12/04/17 03:27 Sulfa (Sulfonamide Allergy Unknown Verified 12/04/17 03:27 Antibiotics) [SULFA (SULFONAMIDE ANTIBIOTICS)] Review of Systems - *Cardiovascular Reports chest pain, Reports shortness of breath with activity - *Respiratory Reports shortness of breath with activity - *Gastrointestinal Denies abdominal pain - *Musculoskeletal Denies joint pain - *Neurologic Denies seizure-like activity Exam Vital signs and Labs for Last 24 Hours: Temp Pulse Resp BP Pulse Ox 97.6 F 73 16 185/89 99 12/04/17 07:27 12/04/17 07:27 12/04/17 07:27 12/04/17 07:27 12/04/17 07:27 Laboratory Results - last 24 hr 12/04/17 00:15: WBC 5.1, RBC 4.20, Hgb 10.9 L, Hct 36.1 L, MCV 86.0, MCH 26.0 L , MCHC 30.2 L, RDW 14.7, Plt Count 32 L*, MPV 10.3, Neut % (Auto) 60.5, Lymph % (Auto) 27.6, [place] % (Auto) 7.2, Eos % (Auto) 4.0, Baso % (Auto) 0.7, Neut # ( Auto) 3.1, Lymph # (Auto) 1.4, [place] # (Auto) 0.4, Eos # (Auto) 0.2, Baso # (Auto ) 0.0 12/04/17 00:15: Troponin I 0.05, Amylase 25, Lipase 310 12/04/17 00:15: Sodium 136, Potassium 4.8, Chloride 109 H, Carbon Dioxide 19 L, Anion Gap 12.8, BUN 40 H, Creatinine 3.82 H, Estimated Creat Clear 20, Estimated GFR 12 L*, Est GFR ( Amer) 14 L*, Glucose 312 H, Calcium 9.2, Total Bilirubin 0.7, Direct Bilirubin 0.1, Indirect Bilirubin 0.6, AST 20, ALT 18, Alkaline Phosphatase 118 H, Total Protein 6.7, Albumin 2.7 L 12/04/17 03:30: Troponin I 0.09 H 12/04/17 06:15: Troponin I 0.11 H 12/04/17 06:21: POC Glucose 241 H I & O for Last 24 hours: Intake & Output 12/01/17 12/02/17 12/03/17 12/04/17 11:59 11:59 11:59 11:59 Intake Total 124 / 124 Balance 124 / 124 Weight 216 lb 3 oz - *Routine Neck Exam Absent: JVD, carotid bruit - *Routine Respiratory Exam Present: CTA bilaterally - *Routine Cardiovascular Exam Present: RRR, murmur. 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, with chronic kidney disease Current visit: No Status: Acute Category: Medical Code(s): I13.10 - Hypertensive heart and chronic kidney disease without heart failure, with stage 1 through stage 4 chronic kidney disease, or unspecified chronic kidney disease (3) Chronic renal failure Current visit: Yes Status: Acute Qualifiers: Chronic kidney disease stage: stage 4 (severe) Qualified Code(s): N18.4 - Chronic kidney disease, stage 4 (severe) Category: Medical Code(s): N18.9 - Chronic kidney disease, unspecified (4) Diabetes mellitus Current visit: Yes Status: Acute Qualifiers: Diabetes mellitus type: type 1 Diabetes mellitus complication status: with kidney complications Diabetes mellitus complication detail: with nephropathy Qualified Code(s): E10.21 - Type 1 diabetes mellitus with diabetic nephropathy Category: Medical Code(s): E11.9 - Type 2 diabetes mellitus without complications (5) Coronary arteriosclerosis Current visit: No Status: Chronic Category: Medical Code(s): I25.10 - Atherosclerotic heart disease of elem coronary artery without angina pectoris (6) Stented coronary artery Current visit: No Status: Chronic Category: Surgical Code(s): Z95.5 - Presence of coronary angioplasty implant and graft - Assessment and plan all Dx Assessment and Plan for all problems:: 1. Office records reveal patient should be on carvedilol 25 mg twice daily, clonidine 0.1 mg twice daily, aspirin 81 mg daily, clopidogrel 75 mg daily, isosorbide mononitrate ER 60 mg daily and Spironolactone 50 mg daily. 2. No further cardiac workup at this time due to the patient's chronic kidney disease preventing cardiac catheterization. Okay for discharge from cardiology standpoint when Dr. Avalos feels she is ready. 3. Elevated troponins likely due to cardiac strain from medication non- compliance resulting in malignant hypertension. Echocardiogram has been performed with official results pending.
--- NOTE | 2017-12-05 11:47 | Cardiology Report ---
PROCEDURE: 2-D M-mode and color Doppler study INDICATIONS FOR THE TEST: Chest pain+ COPD+ Heart Murmur Tobacco Smoking Palpitations Fatigue+ Syncope Edema+ Hypertension+Diabetes Mellitus+ Rheumatic Fever SOB+MARTINEZ+Obesity+Hyperlipidemia+ Family History HD+ Additional History HX of MD, 2 stents, CAD PATIENT INFORMATION HEIGHT: 69 WEIGHT: 210 GENDER: Female B/P: 185/89 2-D/M-MODE INTERPRETATION: 2-D MEASUREMENTS OBSERVED VALUES IN CMS Right Ventricular Dimension (RVDd) 2.3 Interventricular Septum (Thickness)(IVsd) 1.3 Left Ventricular Internal Dimensions(LVIDd) 4.0 Left Ventricular Posterior Wall (Thickness)(LVPWd) 1.3 Aortic Root 3.1 Aortic Cusp Separation 2.0 Left Atrial Dimensions (LAD) 5.7 2D 1. Left atrium is moderately enlarged, left ventricle is normal size, mild concentric left ventricular hypertrophy, visually estimated ejection fraction of 55% with no obvious regional wall motion abnormality. 2. The right atrium and right ventricle are normal size and contractility. 3. The aortic valve is thickened and calcified leaflet continue to display mobility. 4. The mitral and tricuspid valve leaflets are minimally thickened. 5. The pulmonic valve is poorly visualized. 6. No significant pericardial effusion noted. DOPPLER INTERROGATION: Doppler interrogation of the aortic, mitral and tricuspid valvular presence of mild mitral, mild tricuspid regurgitation, there is aortic insufficiency present which is difficult to quantify, it is likely a moderate range, if clinically indicated transesophageal echocardiogram is recommended. Grade 1 diastolic dysfunction seen with tissue Doppler evidence of raised left atrial pressure. CONCLUSION: 1. Moderately enlarged left atrium, normal left ventricular size, mild concentric left ventricular hypertrophy, visually estimated ejection fraction 55% with no obvious regional wall motion abnormality, grade 1 diastolic dysfunction seen with tissue Doppler evidence of raised left atrial pressure. 2. Mild mitral and tricuspid regurgitation 3. Thickened and calcified aortic valve without aortic stenosis, there is aortic insufficiency present which is difficult to quantify, it is likely a moderate range, if clinically indicated transesophageal echocardiogram is recommended 4. No significant pericardial effusion noted.
--- NOTE | 2017-12-05 12:35 | Discharge Summary ---
General - General Admission date:: 12/04/17 Discharge date: 12/05/17 HPI HPI: this wf with progressive chest pain which has been going over the last 3 days - pt reports being compliant with meds -pt has diabetes - pt presented to ed and was admitted for serial enz and card eval Hospital Course Hospital Course: pt did well with dec chest pain and stable labs and was seen by card and had echo -AD A. RAF to LAD, 10/14/2014. On DAPT. 2. Diabetes, poor compliance A. Retinopathy B. Recurrent LE ulcers 3. CKD, stage 5, refuses dialysis A. Sees Dr. Greer 4. Marked thrombocytopenia 5. Hypothyroidism, on supplement 6. Renal osteodystrophy History of present illness: 72-year-old white female with known history of coronary artery disease with LAD stent placed in 2014 presented to the emergency department for 3 day history of progressive episodes of chest pain. Patient received 2 sublingual nitroglycerin with significant improvement in symptoms. Blood pressure on admission to the ER was in the 180/110 range which improved after nitroglycerin. Patient's been admitted overnight with serial troponins showing slight increase. Patient initially told the ER she had been compliant with her medication, but now relates that she is unsure of what medication she is supposed to be taking and has reportedly not been able to get her medicines for several days. She does relate she is in the process of moving and has had some stress related to this process. Cardiology consulted for evaluation and recommendations. Objective Vital signs: Temp Pulse Resp BP Pulse Ox 98.0 F 62 18 123/71 99 12/05/17 08:00 12/05/17 08:00 12/05/17 08:00 12/05/17 08:00 12/05/17 08:00 no acute distress - *Routine HEENT Exam Head: Present: normocephalic Eye: Present: EOMI, PERRL ENT: Present: mucous membranes dry - *Routine Neck Exam Absent: JVD - *Routine Respiratory Exam Absent: respiratory distress - *Routine Cardiovascular Exam Present: RRR, murmur, S4 - *Routine Abdominal Exam Present: soft - *Routine Extremities Exam Comments: has wraps - *Routine Skin Exam Comments: legs wrapped - *Routine Neurological Exam Present: alert, CN II-XII intact - Routine Psychiatric Exam Present: normal affect Results Labs on day of discharge: Labs from last 24 hours 12/05/17 12/05/17 12/04/17 11:33 06:00 20:21 POC Glucose 249 H 204 H 204 H 12/04/17 16:22 POC Glucose 237 H DS: Diagnosis - Discharge Diagnosis (1) Angina at rest Status: Acute (2) Diabetes mellitus Status: Acute (3) Thrombocytopenia Status: Acute (4) Chronic renal failure Status: Acute Discharge Plan - Patient Discharge Instructions ACTIVITY: Continue current activity DIET: continue same diet - Follow up Plan Disposition: Home, Self-[facility] Medications: Home Medications Medication Instructions Recorded Confirmed Type Isosorbide Mononitrate [Imdur 60mg 60 mg PO DAILY 09/04/17 12/04/17 History ER tablet] Omeprazole [Omeprazole 40mg 40 mg PO DAILY 09/04/17 12/04/17 History Capsule] cloNIDine HCl [cloNIDine 0.1mg 0.1 mg PO BID 09/04/17 12/04/17 History Tablet] insulin aspar prt-insulin aspart 55 unit SUB-Q QPM 09/04/17 12/04/17 History 100 unit/mL (70-30) subcutaneous soln insulin aspar prt-insulin aspart 65 unit SUB-Q QAM 09/04/17 12/04/17 History 100 unit/mL (70-30) subcutaneous soln Clopidogrel Bisulfate [Plavix 75mg 75 mg PO DAILY 12/04/17 12/04/17 History Tab] Gabapentin [Gabapentin 400mg Cap] 400 mg PO TID 12/04/17 12/04/17 History Insulin Regular, Human [Novolin R] 0 unit IJ QIDP PRN 12/04/17 12/04/17 History Spironolactone 50 mg PO DAILY 12/04/17 12/04/17 History Prescriptions/Medication Reconciliation: New Clopidogrel Bisulfate [Plavix 75mg Tab] 75 mg PO DAILY tablet Isosorbide Mononitrate [Imdur 60mg ER tablet] 60 mg PO DAILY tab.er.24h Levothyroxine Sodium [Synthroid 88mcg (0.088mg) tablet] 88 mcg PO DAILY tablet Aspirin [Aspirin 81mg chewable tab] 81 mg PO DAILY tab.chew Continue carvedilol 25 mg tablet 25 mg PO BID #60 tab albuterol sulfate HFA 90 mcg/actuation aerosol inhaler 2 puff INHALATION Q6H #18 g Omeprazole [Omeprazole 40mg Capsule] 40 mg PO DAILY Isosorbide Mononitrate [Imdur 60mg ER tablet] 60 mg PO DAILY cloNIDine HCl [cloNIDine 0.1mg Tablet] 0.1 mg PO BID Gabapentin [Gabapentin 400mg Cap] 400 mg PO TID Spironolactone 50 mg PO DAILY Insulin Regular, Human [Novolin R] 0 unit IJ QIDP PRN PRN Reason: DIABETES Clopidogrel Bisulfate [Plavix 75mg Tab] 75 mg PO DAILY No Action insulin aspar prt-insulin aspart 100 unit/mL (70-30) subcutaneous soln 65 unit SUB-Q QAM insulin aspar prt-insulin aspart 100 unit/mL (70-30) subcutaneous soln 55 unit SUB-Q QPM
== END 2017-12-05 13:13 | disposition home or self-care (01) ==
LOC: 2ND 00:16 → ER 00:16 → 2ND 03:16
PROVIDERS: ADMIT Emergency Medicine; ATTEND Emergency Medicine

== ENCOUNTER 2018-04-21 09:00 | Outpatient (RCR) | payer MEDICARE, OTHER, SELFPAY ==
--- NOTE | 2017-11-20 09:21 | HMH.PTOPWND ---
Rehab Outpt Wound Evaluation Rehab OP Wound Evaluation Start: 11/20/17 09:04 Freq: Status: Active Protocol: Document 11/20/17 09:04 ZACHARY (Rec: 11/20/17 09:20 ZACHARY [id number]) Electronically Signed By Fredrick Carlos, KAT 11/20/17 09:04 Subjective/History History History This is the initial Wound CLinic evaluation for Sherice Beltran. Pt is a 72 y/o female referred to wound clinic for R anterior lower leg abrasion/ laceration. Pt reports she fell on concrete porch and scraped munoz on edge of concrete ~ 2 weeks ago. Pt reports she went to ER and has seen general surgeon. Subjective Subjective Pt reports c/o TTP Wound Eval Wound Right Lower Anterior Munoz Wound Type Abrasion Is This a Chronic Wound Yes Wound Length (cm) 8.5 Wound Width (cm) 3.5 Wound Bed Appearance Beefy Red Yellow Granulation Percentage Granulated (%) 75 Percentage of Slough (%) 25 Percentage of Eschar (Yellow) (%) 25 Edema Appearance Hard Surrounding Tissue Temperature Warm Drainage Description Serosanguineous Drainage Amount Small Drainage Odor No Odor Dressing Status Soiled Wound Topical Solution/Irrigant Antibiotic Irrigant Primary Dressing Silver Dressing Comment TEGEDERM AG MESH Comment CoLLAGEN Wound Debridement Method Mechanical Wound Debridement Result Necrotic Tissue Remains Dressing Change Date 11/20/17 Dressing Change Patient Tolerance Tolerated Well Wound Problems/Impairments Impairments Problems/Impairmments Palpation Tenderness Wound Care Needs Subjective C/O Pain Impaired Self Care/Self Management Prognosis Rehab Potential Fair Clinical Impression Consistent with Diagnosis Yes Short Term Goals Number of Weeks 6 Decreased Palpation Tenderness Yes: minimal 1/4 Decrease Wound Area Yes: 50% Decrease Yellow/White Slough % Yes: 0% Increase Red Granulation Tissue % Yes: 100% Decrease Drainage Yes: scant Snf Goals Number of Weeks 12 Decreased Palpation Tenderness Yes: none Decrease Wound Area
== END 2018-04-21 09:05 | disposition home or self-care (01) ==
LOC: PT 09:00
PROVIDERS: Family Provider Emergency Medicine; PCP Emergency Medicine; Visit Provider Surgery
DX: L97.229 Non-pressure chronic ulcer of left calf with unspecified severity (principal)
CPT/HCPCS: 29580; 97161; 97164; 97597; 97598; 97760

== ENCOUNTER → 2018-04-30 09:57 | Outpatient (CLI) | payer MEDICARE, OTHER, SELFPAY ==
[2018-04-30 10:42] LABS: INR 0.94 (0.9-1.1); Prothrombin Time 9.7 seconds (9.4-11.8)
== END ==
PROVIDERS: PCP Emergency Medicine; Visit Provider Internal Medicine Cardiovascular Disease
DX: Z51.81 Encounter for therapeutic drug level monitoring (principal); Z79.01 Long term (current) use of anticoagulants; I48.91 Unspecified atrial fibrillation
CPT/HCPCS: 36415; 85610

== ENCOUNTER → 2018-05-05 14:42 | Outpatient (CLI) | payer MEDICARE, OTHER, SELFPAY ==
[2018-05-05 15:15] LABS: INR 1.08 (0.9-1.1); Prothrombin Time 11.1 seconds (9.4-11.8)
[2018-05-12 10:58] LABS: INR 1.24 (0.9-1.1); Prothrombin Time 12.7 seconds (9.4-11.8)
== END ==
PROVIDERS: PCP Emergency Medicine; Visit Provider Internal Medicine Cardiovascular Disease
DX: Z51.81 Encounter for therapeutic drug level monitoring (principal); Z79.01 Long term (current) use of anticoagulants; I48.91 Unspecified atrial fibrillation
CPT/HCPCS: 36415; 85610

== ENCOUNTER → 2018-05-23 11:03 | Outpatient (CLI) | payer MEDICARE, OTHER, SELFPAY ==
[2018-05-23 11:23] LABS: INR 3.42 (0.9-1.1)
== END ==
PROVIDERS: Visit Provider Internal Medicine Cardiovascular Disease
DX: I48.91 Unspecified atrial fibrillation (principal)
CPT/HCPCS: 36415; 85610

== ENCOUNTER → 2018-06-18 08:20 | Outpatient (CLI) | payer MEDICARE, OTHER, SELFPAY ==
[2018-06-18] VITALS (17 sets, daily range): BP systolic 125–157; BP diastolic 59–71; PULSE 18–73; RESP 18; TEMP 36.6–37.2; O2SAT 93–98; BMI 33.2
[2018-06-18 09:19] LABS: Hematocrit 26.1 % (37.0-47.0)
[2018-06-18 09:31] LABS: Hemoglobin 7.6 g/dL (12.2-16.2)
--- NOTE | 2018-06-18 11:05 | PC.NURSE ---
1100-pt has expiratory wheezes bilateral lungs
[2018-06-18 16:20] LABS: Hematocrit 34.6 % (37.0-47.0)
[2018-06-18 16:33] LABS: Hemoglobin 10.6 g/dL (12.2-16.2)
--- NOTE | 2018-07-27 13:27 | PC.NURSE ---
Addendum entered by Nolvia Lockhart RN 07/27/18 13:30: date of infusion 06/18/18 Original Note: 1530- 1 hour post infusion vitals 148/67 left arm, 18 respirations, 95% SAT, 69 pulse
--- NOTE | 2018-07-27 13:35 | PC.NURSE ---
06/18/18- 1 hour post infusion 98.2 temp
== END ==
PROVIDERS: Visit Provider Emergency Medicine
DX: D64.9 Anemia, unspecified (principal); I48.91 Unspecified atrial fibrillation
CPT/HCPCS: 36430; 85014; 85018; 86850; P9016

== ENCOUNTER → 2018-07-09 12:18 | Outpatient (CLI) | payer MEDICARE, OTHER, SELFPAY ==
[2018-07-09 15:39] LABS: Prothrombin Time 49.8 seconds (9.4-11.8)
[2018-07-09 15:40] LABS: INR 5.07 (0.9-1.1)
== END ==
PROVIDERS: Visit Provider Emergency Medicine
DX: Z51.81 Encounter for therapeutic drug level monitoring; Z79.01 Long term (current) use of anticoagulants; D58.2 Other hemoglobinopathies
CPT/HCPCS: 36415; 85610

== ENCOUNTER → 2018-08-06 11:03 | Outpatient (CLI) | payer MEDICARE, MEDICAID, SELFPAY ==
--- NOTE | 2018-08-06 11:33 | XR_ITS ---
XR foot wt bearing RT 3V HISTORY: ITS.REASON: infection ORDERING PHYSICIAN: Jodie Lee DPM PATIENT AGE: 73 years COMPARISON: 06/04/2017 FINDINGS: There is a small linear metallic foreign body along the medial aspect of the mid foot within the soft tissues medial to the medial cuneiform. This measures 5 mm in length. There has been amputation at the PIP joint of the second toe. Flexion deformity involves the great toe as well as the third, fourth and fifth toes. No bony erosive process is evident. IMPRESSION: Flexion deformities of the first, third, fourth and fifth toes status post dictation at the PIP joint of the second toe Small linear metallic foreign body along the medial aspect of the midfoot
--- NOTE | 2018-08-06 11:33 | XR_ITS ---
XR foot wt bearing LT 3V HISTORY: ITS.REASON: infection ORDERING PHYSICIAN: Jodie Lee DPM PATIENT AGE: 73 years COMPARISON: 11/29/2015 FINDINGS: Artifact is present from overlying bandage. There is an old fracture at the distal aspect of the fifth metatarsal. Hammertoe deformity involves the toes. There is erosive change at the tip of the distal phalanx of the great toe which has developed since the previous exam and is suspicious for osteomyelitis. Please correlate as to patient's area of clinical concern. This is best detected on the AP view IMPRESSION: Erosive change involving the tuft of the distal phalanx of the great toe consistent with osteomyelitis Hammertoe deformity
[2018-08-06 11:45] LABS: Basophils # 0.1 K/mm3 (0-0.2); Basophils % 0.9 % (0.1-2.0); Eosinophils # 0.6 K/mm3 (0.0-0.4); Eosinophils % 7.6 % (0.1-12.0); Hematocrit 34.1 % (37.0-47.0); Hemoglobin 10.5 g/dL (12.2-16.2); Lymphocytes # 1.7 K/mm3 (0.7-4.5); Mean Corpuscular HGB Conc 30.8 g/dL (31.8-35.4); Mean Corpuscular Hemoglobin 27.1 pg (27.0-31.2); Mean Corpuscular Volume 88.1 fl (81-99); Mean Platelet Volume 8.3 fl (7.4-10.4); Monocytes # 0.6 K/mm3 (0.1-1.0); Monocytes % 7.8 % (1.7-9.3); Neutrophils # 4.7 K/mm3 (1.8-7.8); Neutrophils % 61.6 % (37.0-80.0); Platelet Count 87 K/mm3 (142-424); Red Blood Count 3.87 M/mm3 (4.20-5.40); Red Cell Distribution Width 19.1 % (11.5-17.5); White Blood Count 7.7 K/mm3 (4.8-10.8)
[2018-08-06 11:49] LABS: INR 2.31 (0.9-1.1); Prothrombin Time 23.2 seconds (9.4-11.8)
[2018-08-06 12:22] LABS: Alanine Aminotransferase 35 U/L (12-78); Albumin Level 2.6 gm/dL (3.4-5.0); Albumin/Globulin Ratio 0.7 (1.1-1.8); Alkaline Phosphatase 143 U/L (46-116); Anion Gap 16.9 mEq/L (5-15); Aspartate Amino Transferase 28 U/L (15-37); Bilirubin,Total 0.6 mg/dL (0.2-1.0); Blood Urea Nitrogen 48 mg/dL (7-18); C-Reactive Protein 1.2 mg/L (0.0-0.9); Calcium 8.5 mg/dL (8.5-10.1); Carbon Dioxide 25 mmol/L (21.0-32.0); Chloride 100 mmol/L (98-107); Estimated Glomerular Filt Rate 6 ml/min (>60); GFR (African American) 7 ML/MIN (>60); Globulin 3.5 gm/dl (1.3-3.2); Glucose 160 mg/dL (74-106); Potassium 4.9 mmoL/L (3.5-5.1); Sodium 137 mmol/L (136-145); Total Protein,Serum 6.1 gm/dL (6.4-8.2)
[2018-08-06 12:23] LABS: Creatinine,Serum 6.94 mg/dL (0.55-1.02)
[2018-08-06 13:49] LABS: Erythrocyte Sedimentation Rate 65 mm/hr (0-30)
[2018-08-06 14:01] LABS: Hemoglobin A1C 6.1 % (0.0-7.0)
== END ==
PROVIDERS: Visit Provider Podiatrist
DX: Z51.89 Encounter for other specified aftercare (principal); L03.032 Cellulitis of left toe; E10.9 Type 1 diabetes mellitus without complications; Z51.81 Encounter for therapeutic drug level monitoring; Z79.01 Long term (current) use of anticoagulants
CPT/HCPCS: 73630; 80053; 83036; 85025; 85610; 85651; 86140; 87070; 87077; 87081; 87186; 87205

== ENCOUNTER 2018-08-11 08:30 | Outpatient (RCR) | payer MEDICARE, MEDICAID, OTHER, SELFPAY | END 2018-08-11 15:00 | disposition home or self-care (01) | LOC: PT 08:30 | PROVIDERS: Visit Provider Emergency Medicine | DX: L03.115 Cellulitis of right lower limb (principal); E11.621 Type 2 diabetes mellitus with foot ulcer; Z79.4 Long term (current) use of insulin | CPT/HCPCS: 29580; 97162; 97597 ==

== ENCOUNTER → 2018-08-29 20:27 | Outpatient (REF) | payer MEDICARE, SELFPAY ==
[2018-08-29 21:03] LABS: Prothrombin Time 43.9 seconds (9.4-11.8)
[2018-08-29 21:08] LABS: INR 4.45 (0.9-1.1)
== END ==
LOC: LAB 20:27
PROVIDERS: Visit Provider Emergency Medicine
DX: Z51.81 Encounter for therapeutic drug level monitoring (principal); Z79.01 Long term (current) use of anticoagulants; I48.91 Unspecified atrial fibrillation
CPT/HCPCS: 85610

== ENCOUNTER 2018-10-11 08:18 | Emergency (ER) | payer MEDICARE, MEDICAID, SELFPAY ==
[2018-10-11 08:22] VITALS: BP 120/70; PULSE 75; RESP 18; TEMP 36.6
== END 2018-10-11 08:23 | disposition home or self-care (01) ==
PROVIDERS: Emergency Provider Emergency Medicine
DX: Z53.21 Procedure and treatment not carried out due to patient leaving prior to being seen by health care provider (principal)
CPT/HCPCS: G0463; 99211

== ENCOUNTER → 2018-12-19 13:40 | Outpatient (CLI) | payer MEDICARE, MEDICAID, SELFPAY ==
[2018-12-19 14:53] LABS: INR 3.28 (0.9-1.1); Prothrombin Time 32.2 seconds (9.4-11.8)
== END ==
PROVIDERS: Visit Provider Emergency Medicine
DX: Z51.81 Encounter for therapeutic drug level monitoring (principal); Z79.01 Long term (current) use of anticoagulants
CPT/HCPCS: 85610

== ENCOUNTER → 2019-02-18 08:59 | Outpatient (CLI) | payer MEDICARE, MEDICAID, SELFPAY ==
--- NOTE | 2019-02-18 09:04 | MM_ITS ---
PROCEDURE: MM DIG SCREENING MAMM BI W/CAD CLINICAL INDICATION: screening COMPARISON: DIGMAMMS MAMMOGRAM SCREEN-THEOLOGY PROFESSOR N/C from 04/29/1997 [facility] DIG MAMM-SCREEN ROB from 02/18/2014 [facility] DIG MAMM-SCREEN ROB from 11/08/2015 TECHNIQUE: Standard CC and MLO images were obtained. R2 CAD reviewed. FINDINGS: Scattered fibroglandular densities seen throughout both breasts. There is prominent arterial calcification in each breast. This has shown interval progression from the recent studies. There is a mole marker right breast. IMPRESSION: There are 2 separate collections of microcalcifications which have a primarily a benign appearance left breast but these are not seen on the most recent study 11/08/2015. Recommend the patient return for spot compression views of the microcalcifications left breast and ultrasound should be performed as well. There are a few benign-appearing microcalcifications right breast. BI-RAD Category: 0 Need Additional Imaging Evaluation FOLLOW-UP: IMM Immediate Follow-up Recommended (A letter has been sent to the patient regarding results of the study.) Dictated by: Dr. Ashish Rubin MD 02/22/2019 16:[address] Ashish Rubin MD in [place] 02/22/2019 16:19
== END ==
PROVIDERS: PCP Emergency Medicine; Visit Provider Emergency Medicine
DX: Z12.31 Encounter for screening mammogram for malignant neoplasm of breast (principal)
CPT/HCPCS: 77067

== ENCOUNTER → 2019-03-02 13:59 | Outpatient (CLI) | payer MEDICARE, MEDICAID, SELFPAY ==
--- NOTE | 2019-03-02 14:04 | MM_ITS ---
PROCEDURE: MM DIG MAMM DX UNILAT LT CAD CLINICAL INDICATION: abn mamm Follow-up abnormal screening study COMPARISON: [facility] DIG MAMM-SCREEN ROB from 02/18/2014 [facility] DIG MAMM-SCREEN ROB from 11/08/2015 MM DIG SCREENING MAMM BI W/CAD from 02/18/2019 US BREAST LT COMPLETE from 03/02/2019 TECHNIQUE: Mag views performed of the left breast FINDINGS: The cluster of calcifications within the upper outer and left paracentral outer aspect of the left breast are visualized with Mag views. These are coarse and punctate in nature and have a benign appearance. Six-month follow-up is recommended due to their interval development since the previous mammogram and due to some faint calcifications associated with the mostly coarse calcifications. These are probably due to fibroadenoma disc calcification. No suspicious calcifications apparent. Left breast ultrasound: No suspicious abnormalities. IMPRESSION: The the calcifications in the left breast are probably benign. Recommend six-month follow-up due to their interval development and due to some faint calcifications associated with the more coarse calcifications BI-RAD Category: 3 Probably Benign Finding Short Term Follow-up FOLLOW-UP: 6M 6Month Follow-up (A letter has been sent to the patient regarding results of the study.) Dictated by: Yonatan Lala MD 03/05/2019 13:52 Electronically signed by Yonatan Lala MD in [place] 03/05/2019 13:52
== END ==
PROVIDERS: PCP Emergency Medicine; Visit Provider Emergency Medicine
DX: R92.8 Other abnormal and inconclusive findings on diagnostic imaging of breast (principal)
CPT/HCPCS: 76641; 77065

== ENCOUNTER → 2019-05-15 22:06 | Outpatient (CLI) | payer MEDICARE, MEDICAID, SELFPAY ==
[2019-05-15 22:23] LABS: Adenovirus F 40/41, stool Not Detected (NotDetected); Astrovirus Not Detected (NotDetected); Campylobacter Not Detected (NotDetected); Clostridium Difficile A/B, PCR Not Detected (NotDetected); Cryptosporidium Not Detected (NotDetected); Cyclospora Cayetanesis Not Detected (NotDetected); Entamoeba histolytica Not Detected (NotDetected); Enteroaggregative E coli Not Detected (NotDetected); Enteropathogenic E coli Not Detected (NotDetected); Enterotoxigenic E coli Not Detected (NotDetected); Giardia lamblia Not Detected (NotDetected); Norovirus Not Detected (NotDetected); Plesimonas Shigalloides, PCR Not Detected (NotDetected); Rotavirus A Not Detected (NotDetected); Salmonella, PCR Not Detected (NotDetected); Sapovirus Not Detected (NotDetected); Shiga-like toxin E coli Not Detected (NotDetected); Shigella Enterovasive E coli Not Detected (NotDetected); Vibrio Cholerae Not Detected (NotDetected); Vibrio, PCR Not Detected (NotDetected); Yersinia Entercolitica, PCR Not Detected (NotDetected)
== END ==
PROVIDERS: PCP Emergency Medicine; Visit Provider Emergency Medicine
DX: R19.7 Diarrhea, unspecified (principal)
CPT/HCPCS: 87506

== ENCOUNTER → 2019-05-21 04:47 | Outpatient (REF) | payer MEDICARE, MEDICAID, SELFPAY ==
[2019-05-21 04:57] LABS: Microscopic, Urine URINE MICROSCOPIC (MICROSCOPIC)
[2019-05-21 05:01] LABS: Appearance,Urine TURBID (Clear); Bilirubin,Urine Negative (Negative); Blood, Urine 2+ (Negative); Color,Urine YELLOW (Yellow); Glucose,Urine (UA) Negative (Negative); Ketones,Urine Negative (Negative); Leukocyte Esterase,Urine 2+ (Negative); Nitrate,Urine Negative (Negative); PH,Urine 8.5 (5.0-8.5); Protein,Urine 3+ (Negative); Urobilinogen,Urine 0.2 EU/dl (0.2)
[2019-05-21 05:04] LABS: WBC,Urine TNTC #/hpf (0-3)
== END ==
LOC: LAB 04:47
PROVIDERS: Visit Provider Emergency Medicine
DX: R10.9 Unspecified abdominal pain (principal); R39.89 Other symptoms and signs involving the genitourinary system
CPT/HCPCS: 81001; 87086; 87088; 87186

== ENCOUNTER → 2019-06-29 07:23 | Outpatient (CLI) | payer MEDICARE, MEDICAID, SELFPAY ==
[2019-06-29 07:28] LABS: Adenovirus F 40/41, stool Not Detected (NotDetected); Astrovirus Not Detected (NotDetected); Campylobacter Not Detected (NotDetected); Clostridium Difficile A/B, PCR Not Detected (NotDetected); Cryptosporidium Not Detected (NotDetected); Cyclospora Cayetanesis Not Detected (NotDetected); Entamoeba histolytica Not Detected (NotDetected); Enteroaggregative E coli Not Detected (NotDetected); Enteropathogenic E coli Not Detected (NotDetected); Enterotoxigenic E coli Not Detected (NotDetected); Giardia lamblia Not Detected (NotDetected); Plesimonas Shigalloides, PCR Not Detected (NotDetected); Rotavirus A Not Detected (NotDetected); Salmonella, PCR Not Detected (NotDetected); Sapovirus Not Detected (NotDetected); Shiga-like toxin E coli Not Detected (NotDetected); Shigella Enterovasive E coli Not Detected (NotDetected); Vibrio Cholerae Not Detected (NotDetected); Vibrio, PCR Not Detected (NotDetected); Yersinia Entercolitica, PCR Not Detected (NotDetected)
[2019-06-29 10:26] LABS: Norovirus Detected (NotDetected)
== END ==
PROVIDERS: Visit Provider Emergency Medicine
DX: R19.7 Diarrhea, unspecified (principal); A08.11 Acute gastroenteropathy due to Norwalk agent
CPT/HCPCS: 87506

== ENCOUNTER → 2019-09-23 05:32 | Outpatient (REF) | payer MEDICARE, MEDICAID, SELFPAY ==
[2019-09-23 06:10] LABS: INR 1.25 (0.9-1.1); Prothrombin Time 12.9 seconds (9.4-11.8)
== END ==
LOC: LAB 05:32
PROVIDERS: Visit Provider Emergency Medicine
DX: Z51.81 Encounter for therapeutic drug level monitoring (principal); Z79.01 Long term (current) use of anticoagulants; I48.91 Unspecified atrial fibrillation
CPT/HCPCS: 85610

== ENCOUNTER → 2019-10-05 12:56 | Outpatient (CLI) | payer MEDICARE, MEDICAID, SELFPAY ==
--- NOTE | 2019-10-05 13:02 | MM_ITS ---
PROCEDURE: MM DIG MAMM DX UNILAT LT CAD Digital Breast Tomosynthesis Included CLINICAL INDICATION: 6 MONTH F/U Follow-up calcifications COMPARISON: [facility] DIG MAMM-SCREEN ROB from 02/18/2014 [facility] DIG MAMM-SCREEN ROB from 11/08/2015 MM DIG SCREENING MAMM BI W/CAD from 02/18/2019 MM DIG MAMM DX UNILAT LT CAD from 03/02/2019 TECHNIQUE: Standard images performed along with magnification views and tomosynthesis FINDINGS: Average fibroglandular tissue. Multiple clusters of calcification are once again noted and do not appear significantly changed. No malignant appearing mass or malignant-appearing microcalcification. IMPRESSION: Benign findings. No change in the benign-appearing calcifications. Recommend resume bilateral screening mammogram January 2020 BI-RAD Category: 2 Benign Finding(s) FOLLOW-UP: 6M 6Month Follow-up (A letter has been sent to the patient regarding results of the study.) Dictated by: Yonatan Lala MD 10/21/2019 15:01 Electronically signed by Yonatan Lala MD in [place] 10/21/2019 15:01
== END ==
PROVIDERS: PCP Emergency Medicine; Visit Provider Emergency Medicine
DX: R92.8 Other abnormal and inconclusive findings on diagnostic imaging of breast (principal)
CPT/HCPCS: 77061; 77065; G0279

== ENCOUNTER 2019-11-12 22:14 | Emergency (ER) | payer MEDICARE, MEDICAID, SELFPAY ==
[2019-11-12 22:22] VITALS: BP 96/44; PULSE 92; RESP 15; TEMP 37.1; O2SAT 97; BMI 42.0
--- NOTE | 2019-11-12 22:23 | ECG_ITS ---
APPROVED REPORT Exam: Resting ECG HR:93 bpm ECG Measurements Heart Rate 93 AXES WV 208 P -12 QRSd 110 QRS -50 QT 416 T 73 QTc 517 <Conclusion> Normal sinus rhythm Left axis deviation Incomplete right bundle branch block Late r wave progression Prolonged QT Abnormal ECG Electronically signed by : Quincy Vasquez, 11/13/2019 07:47:54
[2019-11-12 22:26] VITALS: BMI 35.5
[2019-11-12 22:27] VITALS: BP 96/44; PULSE 82; RESP 17; O2SAT 98
--- NOTE | 2019-11-12 22:30 | XR_ITS ---
PROCEDURE: XR CHEST PORTABLE CLINICAL HISTORY: chest pain Left-sided, nonsmoker COMPARISON: WO CT CHEST W/O CONTRAST from 12/28/2014 XR CHEST PORTABLE from 06/24/2019 XR CHEST PORTABLE from 07/03/2019 XR CHEST PORTABLE from 07/22/2019 FINDINGS: The lung almodovar are fairly well expanded and appear clear of infiltrate. There is no pleural fluid. There is mild to moderate generalized cardiomegaly. The sternal wire sutures and surgical clips from a previous CABG. There is a left atrial appendage clip in place. There are mild degenerate changes right shoulder with marked subacromial stenosis and high-riding humeral head. IMPRESSION: Generalized cardiomegaly, no acute chest pathology noted Dictated by: Dr. Ashish Rubin MD 11/13/2019 07:[address] Ashish Rubin MD in [place] 11/13/2019 07:56
--- NOTE | 2019-11-12 22:30 | PC.NURSE ---
pt with no complaints of chest pain at this time
[2019-11-12 22:34] LABS: Basophils # 0.1 K/mm3 (0-0.2); Basophils % 0.8 % (0.1-2.0); Chloride 95 mmol/L (98-107); Eosinophils # 1.2 K/mm3 (0.0-0.4); Eosinophils % 21.1 % (0.1-12.0); Hemoglobin 9.4 g/dL (12.2-16.2); Lymphocytes # 1.7 K/mm3 (0.7-4.5); Mean Corpuscular Hemoglobin 29.1 pg (27.0-31.2); Mean Corpuscular Volume 88.3 fl (81-99); Mean Platelet Volume 8.5 fl (7.4-10.4); Monocytes # 0.4 K/mm3 (0.1-1.0); Monocytes % 6.4 % (1.7-9.3); Neutrophils # 2.5 K/mm3 (1.8-7.8); Neutrophils % 42.6 % (37.0-80.0); Platelet Count 92 K/mm3 (142-424); Potassium 4.6 mmoL/L (3.5-5.1); Red Blood Count 3.24 M/mm3 (4.20-5.40); Red Cell Distribution Width 16.9 % (11.5-17.5); Sodium 135 mmol/L (136-145); White Blood Count 5.8 K/mm3 (4.8-10.8)
[2019-11-12 22:37] LABS: Anion Gap 7.6 mEq/L (5-15); Blood Urea Nitrogen 55 mg/dl (7-17); Calcium 8.9 mg/dl (8.4-10.2); Carbon Dioxide 37 mmol/L (22.0-30.0); Creatinine Clearance Estimated 15 mL/min (50-200); Estimated Glomerular Filt Rate 8 ml/min (>60); GFR (African American) 9 ML/MIN (>60); Glucose 126 mg/dl (74-100)
[2019-11-12 22:42] LABS: Hematocrit 28.6 % (37.0-47.0)
--- NOTE | 2019-11-12 22:48 | HMH.EDCP ---
ED Disposition Clinical Impression: Chronic kidney disease with end stage renal failure on dialysis Chest pain Qualifiers: Chest pain type: precordial pain Qualified Code(s): R07.2 - Precordial pain Disposition: Home, Self-Care Condition on Discharge: Good Instructions: DI for Atypical Chest Pain Additional Instructions: resume meds Referrals: Provider,Referral, [Referring] - - Critical Care Critical Care Time: No Attestation: On 11/12/19, the high probability of a clinically significant, sudden or life threatening deterioration of the following system(s) required my full and direct attention, intervention and personal management. The time I documented below is in addition to time spent performing reported procedures but includes the following listed in this critical care notation. Medical Decision Making - Medical Records Medical records reviewed: Yes: I reviewed the patient's medical records. - Black Inquiry Pt receiving controlled substance: No Vital Signs: 11/12/19 22:22 11/12/19 22:27 11/12/19 22:58 Temperature 98.7 F Temperature Source Oral Pulse Rate [Right Brachial] 92 H 82 82 Respiratory Rate 15 17 17 Blood Pressure [Right Arm] 96/44 L 96/44 L 93/47 L Blood Pressure Mean [Right Arm] 61 61 62 Blood Pressure Source [Right Arm] Automatic Cuff Automatic Cuff Automatic Cuff Blood Pressure Position [Right Arm] Sitting Sitting 02 Sat by Pulse Oximetry 97 98 96 Oxygen Delivery Method Room Air Room Air Room Air 11/12/19 23:49 11/13/19 00:31 11/13/19 00:59 Temperature Temperature Source Pulse Rate [Right Brachial] 80 92 H 91 H Respiratory Rate 15 17 16 Blood Pressure [Right Arm] 91/46 L 83/45 L 102/52 L Blood Pressure Mean [Right Arm] 61 57 68 Blood Pressure Source [Right Arm] Automatic Cuff Blood Pressure Position [Right Arm] Sitting Supine 02 Sat by Pulse Oximetry 98 97 100 Oxygen Delivery Method Room Air Room Air - Lab Data Lab results reviewed: Yes: I reviewed the patient's lab results. Lab Results 11/12/19 22:00: WBC 5.8, RBC 3.24 L, Hgb 9.4 L, Hct 28.6 L, MCV 88.3, MCH 29.1, MCHC 33.0, RDW 16.9, Plt Count 92 L, MPV 8.5, Neut % (Auto) 42.6, Lymph % (Auto) 29.0, [place] % (Auto) 6.4, Eos % (Auto) 21.1 H, Baso % (Auto) 0.8, Neut # (Auto) 2.5, Lymph # (Auto) 1.7, [place] # (Auto) 0.4, Eos # (Auto) 1.2 H, Baso # (Auto) 0.1 11/12/19 22:00: Sodium 135 L, Potassium 4.6, Chloride 95 L, Carbon Dioxide 37 H, Anion Gap 7.6, BUN 55 H, Creatinine 5.40 H, Estimated Creat Clear 15, Estimated GFR 8 L*, Est GFR ( Amer) 9 L*, Glucose 126 H, Calcium 8.9, Troponin I 0.02 11/12/19 22:00: PT 14.2 H, INR 1.41 H 11/13/19 00:25: Troponin I < 0.01 Result diagrams: 11/12/19 22:00 11/12/19 22:00 Orders (Tests/Meds): ORDERS Category Date Time Status XR chest portable Stat Exams 11/12/19 22:30 Taken - Radiology Data #1 Image(s): Chest Image Reviewed: Yes I reviewed the patient's radiology image Preliminary Findings: Normal/NAD - ECG Data Tracing #1 Normal Sinus Rhythm: Yes Ischemic changes: non-specific ST-T wave changes ECG compared to prior tracings: there are no significant changes Chest Pain HPI - General Chief Complaint: Chest Pain Stated Complaint: chest pain Time Seen by Provider: 11/12/19 22:30 Mode of Arrival: EMS Source of Information: Patient, EMS, Medical Record Limitations: No Limitations Description of Symptoms (Recalled from ER Triage Doc. by RN): chest pain that patient states she has had intermittently throughout day. received normally scheduled dialysis earlier this date. was seen at [facility] this date as well for her AV fistula. - History of Present Illness HPI narrative: sent from [facility] for intermittent lt sided chest pain MD complaint: chest pain indicative of cardiac Duration: intermittent Activity at onset: during rest Pain location: left chest Severity: moderate Quality: dull Risk Factors for CAD: Family Hx of CAD, Diabetes Milly
[2019-11-12 22:49] LABS: Troponin I 0.02 ng/ml (0.00-0.034)
[2019-11-12 22:54] LABS: INR 1.41 (0.9-1.1); Prothrombin Time 14.2 seconds (9.4-11.8)
[2019-11-12 22:58] VITALS: BP 93/47; PULSE 82; RESP 17; O2SAT 96
--- NOTE | 2019-11-12 23:30 | PC.NURSE ---
md states to recheck troponin at the 2 hour vidya. order placed for 0015 11/12. serial enzymes dc'd
[2019-11-12 23:49] VITALS: BP 91/46; PULSE 80; RESP 15; O2SAT 98
--- NOTE | 2019-11-12 23:49 | PC.NURSE ---
family notified of labs and status, waiting on troponin. son is ok with this plan. leaving for night.
[2019-11-13 00:31] VITALS: BP 83/45; PULSE 92; RESP 17; O2SAT 97
--- NOTE | 2019-11-13 00:31 | PC.NURSE ---
pt repositioned and blood pressure rechecked manually. remains consistent with previous readings
[2019-11-13 00:56] LABS: Troponin I < 0.01 ng/ml (0.00-0.034)
[2019-11-13 00:59] VITALS: BP 102/52; PULSE 91; RESP 16; O2SAT 100
--- NOTE | 2019-11-13 01:17 | PC.NURSE ---
call placed to nurse mely at [facility]
--- NOTE | 2019-11-13 01:24 | PC.NURSE ---
call placed to [facility] for transport.
[2019-11-13 01:33] VITALS: BP 104/58; PULSE 90; RESP 16; TEMP 36.6; O2SAT 98
== END 2019-11-13 02:01 | disposition home or self-care (01) ==
PROVIDERS: Emergency Provider Emergency Medicine; PCP Emergency Medicine
DX: N18.6 End stage renal disease (principal); Z99.2 Dependence on renal dialysis; R07.2 Precordial pain; I25.10 Atherosclerotic heart disease of native coronary artery without angina pectoris; I48.20 Chronic atrial fibrillation, unspecified; J44.9 Chronic obstructive pulmonary disease, unspecified; I50.9 Heart failure, unspecified; I25.2 Old myocardial infarction; Z88.2 Allergy status to sulfonamides; Z88.0 Allergy status to penicillin; I10 Essential (primary) hypertension; E03.9 Hypothyroidism, unspecified; E78.5 Hyperlipidemia, unspecified
CPT/HCPCS: 71045; 80048; 84484; 85025; 85610; 93005; 99284

== ENCOUNTER 2019-12-21 09:02 | Emergency (ER) | payer MEDICARE, MEDICAID, SELFPAY ==
[2019-12-21 09:02] VITALS: BP 114/75; PULSE 81; RESP 16; TEMP 37; O2SAT 98; BMI 26.6
--- NOTE | 2019-12-21 09:04 | CT_ITS ---
PROCEDURE: CT HEAD/BRAIN WO CON CLINICAL INDICATION: fall, patient on on anticoag , COMPARISON: CT HEAD/BRAIN WO CON from 07/22/2019 TECHNIQUE: Axial images obtained. All CT scans at the facility use one or more dose reduction, viz: automated exposure control, ma/kV adjustment per patient size (including targeted exams where dose is matched to indication, i.e. head), or iterative reconstruction technique. FINDINGS: No midline shift, mass effect, intracranial hemorrhage, hydrocephalus, or extra-axial fluid collection is evident. There is moderate cerebral atrophy with widening of the extra-axial spaces and ventricular dilatation. There are areas of decreased attenuation within the white matter tracts of the supratentorial brain, compatible with microvascular disease changes. The calvarium has an unremarkable appearance. A small scalp hematoma is seen posteriorly in the right parietal region. No mastoid effusion. Moderate mucoperiosteal inflammatory thickening of the left sphenoid sinus. A 1.2 centimeter polyp/retention cyst is again seen in the left maxillary sinus. Right-sided deviated nasal septum. IMPRESSION: 1.No acute intracranial finding 2. A small scalp hematoma is seen posteriorly in the right parietal region. 3. Moderate left sphenoid chronic sinusitis. A 1.2 centimeter polyp in the left maxillary sinus. Dictated by: Lorraine Lorenzana 12/21/2019 09:41 Electronically signed by Lorraine Lorenzana in [facility] 12/21/2019 09:41
--- NOTE | 2019-12-21 09:04 | XR_ITS ---
PROCEDURE: XR KNEE RT 3V CLINICAL INDICATION: fall with knee pain COMPARISON: [id number] KNEE-3 VIEWS-LT from 09/22/2014 [id number] XR knee LT 3V from 09/07/2018 FINDINGS: No fracture or dislocation. No lytic or blastic change. There is significant periarticular bony demineralization. There is mild/moderate osteoarthrosis of the lateral, medial femorotibial and patellofemoral compartments with asymmetric joint space narrowing. No substantial joint effusion is seen. Other findings: Possible peripatellar soft tissue edema/swelling. Diffuse atherosclerotic vascular calcifications. IMPRESSION: 1. No demonstrated acute fracture or dislocation. 2. Significant periarticular bony demineralization. Mild/moderate tricompartment osteoarthrosis. 3. The periarticular significant soft tissue edema/swelling. Dictated by: Lorraine Lorenzana 12/21/2019 11:08 Electronically signed by Lorraine Lorenzana in [facility] 12/21/2019 11:08
--- NOTE | 2019-12-21 09:04 | HMH.EDFALL ---
ED Disposition Clinical Impression: Fall Qualifiers: Encounter type: initial encounter Qualified Code(s): W19.XXXA - Unspecified fall, initial encounter Scalp hematoma Qualifiers: Encounter type: initial encounter Qualified Code(s): S00.03XA - Contusion of scalp, initial encounter Right knee injury Qualifiers: Encounter type: initial encounter Qualified Code(s): S89.91XA - Unspecified injury of right lower leg, initial encounter Disposition: Xfer SNF Condition on Discharge: Good Instructions: DI for Closed Head Injury, DI for Knee Sprain Referrals: PCP,No [Primary Care Provider] - 3 days - Critical Care Critical Care Time: No Attestation: On , the high probability of a clinically significant, sudden or life threatening deterioration of the following system(s) required my full and direct attention, intervention and personal management. The time I documented below is in addition to time spent performing reported procedures but includes the following listed in this critical care notation. Medical Decision Making - Medical Records Medical records reviewed: Yes: I reviewed the patient's medical records. - Black Inquiry Pt receiving controlled substance: No Vital Signs: 12/21/19 09:02 12/21/19 09:20 Temperature 98.6 F 98 F Temperature Source Oral Oral Pulse Rate 74 Pulse Rate [Right Radial] 81 Respiratory Rate 16 16 Blood Pressure 115/74 Blood Pressure [Right Arm] 114/75 Blood Pressure Mean [Right Arm] 88 Blood Pressure Position Sitting Blood Pressure Position [Right Arm] Sitting 02 Sat by Pulse Oximetry 98 Oxygen Delivery Method Room Air Room Air Orders (Tests/Meds): ORDERS Category Date Time Status CT head/brain wo con Stat Cat Scan 12/21/19 09:04 Taken Knee XR right 4 views [XR knee RT 4V] Stat Exams 12/21/19 09:04 Ordered - Radiology Data #1 Image(s): Knee Image Reviewed: Yes I reviewed the patient's radiology image Preliminary Findings: No Fracture Seen OA, no acute process/frcature - CT Data CT Scan: Head Time Received: 09:[address] Reviewed: Yes: I have reviewed the patient's CT results Findings Narrative: No acute intracranial process Medical Decision Narrative: Patient is alert and oriented, is a good historian. Mechanical fall, no acute illnesses. Cervical spine cleared via Nexus criteria. CT head negative per radiology read. I have reviewed her knee x-ray which shows diffuse arthritis, but no acute fracture or dislocation. She is neurovascularly intact distally at her baseline. Discharged back to alf. Fall HPI - General Stated Complaint: Fall Time Seen by Provider: 12/21/19 09:04 Mode of Arrival: EMS Source of Information: Patient, EMS Limitations: No Limitations - History of Present Illness HPI Narrative: This is a 74-year-old female with a past medical history significant for afib, hypertension, hyperlipidemia, diabetes mellitus, end-stage renal disease on dialysis who presents to the emergency department for evaluation of head injury and right knee pain after mechanical fall transferring from her bed to the wheelchair. The wheelchair scooted away from her when she was attempting transfer. She complains of primarily pain in the right knee that is worse with movement, better with rest. No new numbness, tingling, weakness distally. She does have a hematoma on the right side of the scalp where she hit her head when she fell. No loss of consciousness and patient denies any headache or visual changes. She denies any neck, back, chest, abdominal pain. No numbness, tingling, weakness of the upper extremities. She is on anticoagulation. - Related Data Home Medications Medication Instructions Recorded Confirmed atorvastatin 40 mg tablet 40 mg PO DAILY 01/27/18 12/21/19 levothyroxine 100 mcg capsule 100 mcg PO DAILY 01/27/18 12/21/19 Metoprolol Tartrate [Lopressor 12.5 mg PO BID 10/11/18 12/21/19 25mg tablet] Sevelamer Carbo
[2019-12-21 09:20] VITALS: BP 115/74; PULSE 74; RESP 16; TEMP 36.6; O2SAT 98
[2019-12-21 10:31] VITALS: BP 140/59; PULSE 73; O2SAT 98
--- NOTE | 2019-12-21 11:28 | PC.NURSE ---
selina wrap applied to rt knee
== END 2019-12-21 11:28 ==
PROVIDERS: Emergency Provider Emergency Medicine; PCP Emergency Medicine
DX: S00.03XA Contusion of scalp, initial encounter (principal); S89.91XA Unspecified injury of right lower leg, initial encounter; W05.0XXA Fall from non-moving wheelchair, initial encounter; Y92.129 Unspecified place in nursing home as the place of occurrence of the external cause; I48.20 Chronic atrial fibrillation, unspecified; I10 Essential (primary) hypertension; E78.5 Hyperlipidemia, unspecified; E11.9 Type 2 diabetes mellitus without complications; Z79.4 Long term (current) use of insulin; N18.6 End stage renal disease; Z99.2 Dependence on renal dialysis; I25.2 Old myocardial infarction; Z79.899 Other long term (current) drug therapy
CPT/HCPCS: 70450; 73562; 99282

== ENCOUNTER → 2019-12-30 13:11 | Outpatient (CLI) | payer MEDICARE, MEDICAID, SELFPAY | PROVIDERS: Visit Provider Emergency Medicine | DX: Z03.818 Encounter for observation for suspected exposure to other biological agents ruled out (principal) | CPT/HCPCS: U0003 ==

== ENCOUNTER → 2020-01-29 04:07 | Outpatient (CLI) | payer MEDICARE, MEDICAID, SELFPAY ==
[2020-01-29 04:18] LABS: Microscopic, Urine URINE MICROSCOPIC (MICROSCOPIC)
[2020-01-29 04:21] LABS: Appearance,Urine TURBID (Clear); Bilirubin,Urine Negative (Negative); Blood, Urine 1+ (Negative); Color,Urine YELLOW (Yellow); Glucose,Urine (UA) Negative (Negative); Ketones,Urine Negative (Negative); Leukocyte Esterase,Urine 2+ (Negative); Nitrate,Urine Negative (Negative); Protein,Urine 2+ (Negative); Urobilinogen,Urine 0.2 EU/dl (0.2)
[2020-01-29 05:11] LABS: Bacteria,Urine 4+ /lpf; WBC,Urine TNTC #/hpf (0-3)
== END ==
PROVIDERS: PCP Emergency Medicine; Visit Provider Emergency Medicine
DX: N39.0 Urinary tract infection, site not specified (principal); B96.20 Unspecified Escherichia coli [E. coli] as the cause of diseases classified elsewhere
CPT/HCPCS: 81001; 87086; 87088; 87186

== ENCOUNTER → 2020-02-07 13:10 | Outpatient (CLI) | payer MEDICARE, MEDICAID, SELFPAY ==
[2020-02-08 15:21] LABS: Covid-19 Nasal PCR Sendout Lex Not Detected
== END ==
PROVIDERS: Visit Provider Emergency Medicine
DX: Z20.828 Contact with and (suspected) exposure to other viral communicable diseases (principal)
CPT/HCPCS: U0004

== ENCOUNTER → 2020-02-21 08:08 | Outpatient (CLI) | payer MEDICARE, MEDICAID, SELFPAY ==
[2020-02-22 08:34] LABS: Covid-19 Nasal PCR Sendout Lex NOT DETECTED
== END ==
PROVIDERS: Visit Provider Emergency Medicine
DX: Z03.818 Encounter for observation for suspected exposure to other biological agents ruled out (principal)
CPT/HCPCS: U0004

== ENCOUNTER → 2020-03-01 21:00 | Outpatient (CLI) | payer MEDICARE, MEDICAID, SELFPAY ==
[2020-03-01 22:33] LABS: INR 1.98 (0.9-1.1); Prothrombin Time 20.7 seconds (9.4-11.8)
== END ==
PROVIDERS: Visit Provider Emergency Medicine
DX: Z51.81 Encounter for therapeutic drug level monitoring (principal); Z79.01 Long term (current) use of anticoagulants
CPT/HCPCS: 85610

== ENCOUNTER → 2020-03-21 10:13 | Outpatient (CLI) | payer MEDICARE, MEDICAID, SELFPAY ==
[2020-03-22 09:01] LABS: Covid-19 Nasal PCR Sendout Lex NOT DETECTED
== END ==
PROVIDERS: PCP Emergency Medicine; Visit Provider Nurse Practitioner Family
DX: Z03.818 Encounter for observation for suspected exposure to other biological agents ruled out (principal)
CPT/HCPCS: U0004

== ENCOUNTER 2020-03-30 18:33 | Emergency (ER) | payer MEDICARE, MEDICAID, SELFPAY ==
--- NOTE | 2020-03-30 18:32 | ECG_ITS ---
APPROVED REPORT Exam: Resting ECG HR:86 bpm ECG Measurements Heart Rate [address] 208 P -16 QRSd 86 QRS -26 QT 412 T 71 QTc 493 Conclusion Normal sinus rhythm Moderate voltage criteria for LVH, may be normal variant Late r wave progression Abnormal ECG Electronically signed by : Quincy Vasquez, 04/02/2020 20:34:49
[2020-03-30 18:34] VITALS: BP 174/86; PULSE 78; RESP 16; TEMP 36.9; O2SAT 98; BMI 32.4
--- NOTE | 2020-03-30 18:37 | HMH.EDCP ---
ED Disposition Condition on Discharge: Good - Critical Care Critical Care Time: No <Dario De La Torre - Last Filed: 03/30/20 19:43> <Willie Avalos - Last Filed: 03/30/20 20:28> Clinical Impression: Atypical chest pain, ESRD (end stage renal disease) on dialysis Disposition: Home, Self-Care Instructions: DI for Atypical Chest Pain Additional Instructions: resume prev orders Referrals: Willie Avalos MD [Primary Care Provider] - Attestation: On 03/30/20, the high probability of a clinically significant, sudden or life threatening deterioration of the following system(s) required my full and direct attention, intervention and personal management. The time I documented below is in addition to time spent performing reported procedures but includes the following listed in this critical care notation. Medical Decision Making - Medical Records Medical records reviewed: Yes: I reviewed the patient's medical records. - Black Inquiry Pt receiving controlled substance: No - Lab Data Lab results reviewed: Yes: I reviewed the patient's lab results. Result diagrams: 03/30/20 18:57 03/30/20 18:57 - Radiology Data #1 Image(s): Chest Image Reviewed: Yes I reviewed the patient's radiology image - ECG Data Tracing #1 I reviewed this ECG and interpreted as documented below: <Dario De La Torre - Last Filed: 03/30/20 19:43> - Lab Data Result diagrams: 03/30/20 18:57 03/30/20 18:57 <Willie Avalos - Last Filed: 03/30/20 20:28> Vital Signs: 03/30/20 18:34 Temperature 98.4 F Temperature Source Oral Pulse Rate [Radial] 78 Respiratory Rate 16 Blood Pressure [Right Arm] 174/86 H Blood Pressure Mean [Right Arm] 115 Blood Pressure Position [Right Arm] Sitting 02 Sat by Pulse Oximetry 98 Oxygen Delivery Method Room Air - Lab Data Lab Results 03/30/20 18:57: WBC 7.6, RBC 4.26, Hgb 12.5, Hct 38.0, MCV 89.2, MCH 29.4, MCHC 33.0, RDW 15.4, Plt Count 107 L, MPV 9.1, Neut % (Auto) 60.3, Lymph % (Auto) 24.7, [place] % (Auto) 4.3, Eos % (Auto) 10.1, Baso % (Auto) 0.6, Neut # (Auto) 4.6, Lymph # (Auto) 1.9, [place] # (Auto) 0.3, Eos # (Auto) 0.8 H, Baso # (Auto) 0.1 03/30/20 18:57: Sodium 134 L, Potassium 3.8, Chloride 86 L, Carbon Dioxide 38 H, Anion Gap 13.8, BUN 41 H, Creatinine 4.10 H, Estimated Creat Clear 17, Estimated GFR 11 L*, Est GFR ( Amer) 13 L*, Glucose 230 H, Calcium 9.7, Total Bilirubin 0.8, AST 33, ALT 16, Alkaline Phosphatase 155 H, Troponin I < 0.01, Total Protein 7.1, Albumin 3.9, Globulin 3.2, Albumin/Globulin Ratio 1.2 03/30/20 18:57: Lipase 125 Orders (Tests/Meds): ORDERS Category Date Time Status XR chest portable Stat Exams 03/30/20 18:43 Taken Troponin I Q3H Lab 03/30/20 21:45 Ordered Troponin I Q3H Lab 03/31/20 00:45 Ordered ECG Request by /Alberto Stat Y 03/30/20 18:43 Ordered - Radiology Data #1 No acute disease (Dario De La Torre) - ECG Data Tracing #1 EKG shows sinus rhythm with a rate of 86. No acute ST segment elevation or depression. No hyperacute T waves. Normal intervals. EKG interpreted by me. (Dario De La Torre) Medical Decision Narrative: Patient here with currently minimal pain. Initial troponin negative. EKG with no signs of acute ischemia. Repeat troponin pending and patient care transferred to Dr. Avalos at 1999. X-ray with no signs of pneumonia, pneumothorax, widened mediastinum or florid pulmonary edema. (Draio De La Torre) Chest Pain HPI - General Mode of Arrival: EMS Source of Information: Patient, EMS Limitations: No Limitations - MEGHNA Score for Non-Stemi Age of Patient: 70-79 years old Heart Rate: 70-89 bpm Systolic Blood Pressure: 160-199 mmHg Serum Creatinine: 4.00 mg/dl or higher CHF [place] Class: I-No CHF Other Risk Factors: None Non-Stemi Risk Score: 122 <Dario De La Torre - Last Filed: 03/30/20 19:43> - History of Present Illness MD complaint: chest pain indicative of cardiac Duration: now resolved
--- NOTE | 2020-03-30 18:43 | XR_ITS ---
PROCEDURE: XR CHEST PORTABLE CLINICAL HISTORY: chest pain COMPARISON: CT [facility] CT CHEST W/O CONTRAST from 12/28/2014 CR XR CHEST PORTABLE from 07/03/2019 CR XR CHEST PORTABLE from 07/22/2019 CR XR CHEST PORTABLE from 11/12/2019 FINDINGS: Prior median sternotomy. Borderline cardiomegaly without failure. Prior left atrial appendage clipping. There is mild patient rotation. The lungs are clear without infiltrates, suspicious nodules, or pleural effusions. Surgical clips left upper extremity. Vascular stent is present in the right upper extremity. Subchondral sclerosis involves the right humeral head nonspecific. IMPRESSION: No acute finding. Please see above for detail. Dictated by: Yonatan Lala MD 03/31/2020 05:11 Yonatan Lala MD in [place] 03/31/2020 05:11
[2020-03-30 19:07] LABS: Basophils # 0.1 K/mm3 (0-0.2); Basophils % 0.6 % (0.1-2.0); Eosinophils # 0.8 K/mm3 (0.0-0.4); Eosinophils % 10.1 % (0.1-12.0); Hemoglobin 12.5 g/dL (12.2-16.2); Lymphocytes # 1.9 K/mm3 (0.7-4.5); Lymphocytes % 24.7 % (10-50); Mean Corpuscular Hemoglobin 29.4 pg (27.0-31.2); Mean Corpuscular Volume 89.2 fl (81-99); Mean Platelet Volume 9.1 fl (7.4-10.4); Monocytes # 0.3 K/mm3 (0.1-1.0); Monocytes % 4.3 % (1.7-9.3); Neutrophils # 4.6 K/mm3 (1.8-7.8); Neutrophils % 60.3 % (37.0-80.0); Platelet Count 107 K/mm3 (142-424); Red Blood Count 4.26 M/mm3 (4.20-5.40); Red Cell Distribution Width 15.4 % (11.5-17.5); White Blood Count 7.6 K/mm3 (4.8-10.8)
[2020-03-30 19:10] LABS: Chloride 86 mmol/L (98-107); Potassium 3.8 mmoL/L (3.5-5.1); Sodium 134 mmol/L (136-145)
[2020-03-30 19:12] LABS: Alanine Aminotransferase 16 U/L (12-78); Aspartate Amino Transferase 33 U/L (14-36); Blood Urea Nitrogen 41 mg/dl (7-17); Creatinine Clearance Estimated 17 mL/min (50-200); Estimated Glomerular Filt Rate 11 ml/min (>60); GFR (African American) 13 ML/MIN (>60)
[2020-03-30 19:13] LABS: Albumin Level 3.9 g/dl (3.5-5.0); Albumin/Globulin Ratio 1.2 (1.1-1.8); Alkaline Phosphatase 155 U/L (38-126); Anion Gap 13.8 mEq/L (5-15); Bilirubin,Total 0.8 mg/dl (0.2-1.3); Calcium 9.7 mg/dl (8.4-10.2); Carbon Dioxide 38 mmol/L (22.0-30.0); Globulin 3.2 g/dL (1.3-3.2); Glucose 230 mg/dl (74-100); Total Protein,Serum 7.1 g/dl (6.3-8.2)
[2020-03-30 19:34] LABS: Troponin I < 0.01 ng/ml (0.00-0.034)
[2020-03-30 19:49] LABS: Lipase 125 U/L (23-300)
--- NOTE | 2020-03-30 20:41 | PC.NURSE ---
pt discharged but waiting on transportation back to [facility]
[2020-03-30 21:59] VITALS: BP 132/74; PULSE 76; RESP 16; TEMP 36.8; O2SAT 98
== END 2020-03-30 22:07 | disposition home or self-care (01) ==
PROVIDERS: Emergency Provider Emergency Medicine; PCP Emergency Medicine
DX: R07.89 Other chest pain (principal); I25.10 Atherosclerotic heart disease of native coronary artery without angina pectoris; J44.9 Chronic obstructive pulmonary disease, unspecified; E03.9 Hypothyroidism, unspecified; Z88.0 Allergy status to penicillin; E11.22 Type 2 diabetes mellitus with diabetic chronic kidney disease; I12.0 Hypertensive chronic kidney disease with stage 5 chronic kidney disease or end stage renal disease; N18.6 End stage renal disease; Z99.2 Dependence on renal dialysis; Z79.84 Long term (current) use of oral hypoglycemic drugs; Z79.899 Other long term (current) drug therapy
CPT/HCPCS: 71045; 80053; 83690; 84484; 85025; 93005; 99283

== ENCOUNTER → 2020-04-04 12:56 | Outpatient (CLI) | payer MEDICARE, MEDICAID, SELFPAY ==
--- NOTE | 2020-04-04 13:00 | CT_ITS ---
PROCEDURE: CT FOOT LT WO CON CLINICAL HISTORY: LFT FOOT CHECK FOR 5TH MEDITARSAL AND TALT EVAL FX TARSEL AND METATARSEL Injury with pain COMPARISON: No exams were available for comparison TECHNIQUE: Axial images obtained with sagittal and coronal reformats. All CT scans at the facility use one or more dose reduction, viz: automated exposure control, ma/kV adjustment per patient size (including targeted exams where dose is matched to indication, i.e. head), or iterative reconstruction technique. FINDINGS: There is generalized osteopenia. There is a mildly impacted fracture involving the calcaneus which runs parallel to the posterior subtalar facet exiting superiorly 1 cm posterior to the tail 0 calcaneal joint. The fracture extends inferiorly to the plantar surface of the calcaneus. Boehler's angle is preserved. Osteoarthritic changes are present at the anterior and posterior subtalar joint as well as the talonavicular and navicular cuneiform joint. Subchondral cystic changes are present involving the calcaneus at the sustentacular basil region and also involving the talus at the posterior subtalar joint area. There is cortical irregularity involving the talus at the posterior subtalar joint region. This is best demonstrated on the sagittal reformatted images series 602, image 28-33. There is a subchondral cyst at this area and this discontinuity may be related to the cyst extension to the articular surface. Cannot exclude the possibility of a nondisplaced fracture. Flexion deformity involves all the toes with osteoarthritic changes at the DIP joints. There is nonspecific sclerosis involving the distal shaft of the tibia. There is some curvilinear calcification noted along the lateral aspect and distal aspect of the talus within the soft tissues. Small amount fluid is present at the ankle joint and the talonavicular region. There is generalized vascular calcification IMPRESSION: 1. Nondisplaced mildly impacted calcaneal fracture as described above. 2. Cortical lucency involving the posterior subtalar region of the talus associated with a sub cortical cyst. Cannot exclude the possibility of a nondisplaced fracture at this area. MRI may provide further evaluation if clinically desired. 3. Generalized osteopenia with osteoarthritis, ankle joint effusion, and hammertoe deformity. Dictated by: Yonatan Lala MD 04/05/2020 09:15 Yonatan aLla MD in [facility] 04/05/2020 09:15
== END ==
PROVIDERS: PCP Emergency Medicine; Visit Provider Podiatrist Foot & Ankle Surgery
DX: M79.672 Pain in left foot (principal)
CPT/HCPCS: 73700

== ENCOUNTER 2020-04-05 18:51 | Emergency (ER) | payer MEDICARE, MEDICAID, SELFPAY ==
[2020-04-05 18:52] VITALS: BP 223/104; PULSE 101; RESP 20; TEMP 36.9; O2SAT 95; BMI 28.3
--- NOTE | 2020-04-05 19:11 | HMH.EDGENADL ---
ED Disposition Condition on Discharge: Fair - Critical Care Critical Care Time: No <Gary Cisneros - Last Filed: 04/05/20 20:25> <Willie Avalos - Last Filed: 04/05/20 21:27> Clinical Impression: Right arm pain, Dialysis patient, ESRD (end stage renal disease) on dialysis Disposition: Home, Self-Care Instructions: DI for Acute Pain -- Adult Additional Instructions: call dr gutierrez office and see them tomorrow Referrals: Willie Avalos MD [Primary Care Provider] - Attestation: On 04/05/20, the high probability of a clinically significant, sudden or life threatening deterioration of the following system(s) required my full and direct attention, intervention and personal management. The time I documented below is in addition to time spent performing reported procedures but includes the following listed in this critical care notation. Medical Decision Making - Medical Records Medical records reviewed: Yes: I reviewed the patient's medical records. MR Comment: Seen in this emergency department 6 days ago for chest pain with negative cardiac work-up - Black Inquiry Pt receiving controlled substance: Yes Black was queried for this patient: No Reason not queried -: Emergent pt cond-no time Risks and benefits of using a controlled substance: were not discussed with pt by me - Lab Data Result diagrams: 04/05/20 19:08 04/05/20 19:08 - Physician Consults Physician Consulted: Dr. Mota for Dr. Arce Time: 20:25 Reason -: Other (vascular surgery) Comment/Response: States that as long as her hand is perfused, which it is, nothing emergent to be concerned about. Sometimes the pain is caused by a through and through perforation of the dialysis needle through the fistula. This can cause a pseudoaneurysm which they will check by duplex study. He says that she can be seen by Dr. Arce nurse practitioner in their office tomorrow and they can do a duplex then. He says that nothing is needed overnight other than pain management. <Gary Cisneros - Last Filed: 04/05/20 20:25> - Lab Data Lab results reviewed: Yes: I reviewed the patient's lab results. Result diagrams: 04/05/20 19:08 04/05/20 19:08 - CT Data CT Scan: Other (rt upper ext ) Time Received: 21:[address] Reviewed: Yes: I have viewed the radiologist's interpretation Preliminary Findings: Abnormal (no abscess or hematoma ) <BaileyWillie S - Last Filed: 04/05/20 21:27> Vital Signs: 04/05/20 18:52 04/05/20 19:24 04/05/20 19:57 Temperature 98.5 F Temperature Source Oral Pulse Rate [Left Radial] 101 H 105 H 101 H Respiratory Rate 20 18 18 Blood Pressure [Left Arm] 223/104 H 205/104 H 198/100 H Blood Pressure Mean [Left Arm] 143 137 132 Blood Pressure Source [Left Arm] Automatic Cuff Blood Pressure Position [Left Arm] Supine 02 Sat by Pulse Oximetry 95 95 95 Oxygen Delivery Method Room Air Room Air - Lab Data Lab Results 04/05/20 19:08: WBC 5.6, RBC 4.22, Hgb 11.5 L, Hct 37.3, MCV 88.3, MCH 27.3, MCHC 30.9 L, RDW 14.7, Plt Count 72 L, MPV 9.2, Neut % (Auto) 78.2, Lymph % (Auto) 15.2, [place] % (Auto) 5.6, Eos % (Auto) 0.6, Baso % (Auto) 0.5, Neut # (Auto) 4.4, Lymph # (Auto) 0.8, [place] # (Auto) 0.3, Eos # (Auto) 0.0, Baso # (Auto) 0.0 04/05/20 19:08: Sodium 135 L, Potassium 3.5, Chloride 87 L, Carbon Dioxide 34 H, Anion Gap 17.5 H, BUN 31 H, Creatinine 3.80 H, Estimated Creat Clear 18, Estimated GFR 12 L*, Est GFR ( Amer) 14 L*, Glucose 138 H, Calcium 10.2, Total Bilirubin 1.1, AST 40 H, ALT 32, Alkaline Phosphatase 175 H, Total Protein 7.7, Albumin 4.3, Globulin 3.4 H, Albumin/Globulin Ratio 1.3 04/05/20 19:08: Lactate 4.4 H 04/05/20 19:08: ESR 80 H 04/05/20 19:08: C-Reactive Protein 17.3 H 04/05/20 19:08: Total Creatine Kinase 70, CK-MB (CK-2) 1.3, CK-MB (CK-2) Rel Index 1.9, Troponin I 0.03 04/05/20 19:08: Procalcitonin 0.874 Orders (Tests/Meds): ED MEDICATIONS Discontinued Medications Generic Name Dose Route Start
[2020-04-05 19:21] LABS: Basophils % 0.5 % (0.1-2.0); Eosinophils % 0.6 % (0.1-12.0); Hematocrit 37.3 % (37.0-47.0); Hemoglobin 11.5 g/dL (12.2-16.2); Lymphocytes # 0.8 K/mm3 (0.7-4.5); Lymphocytes % 15.2 % (10-50); Mean Corpuscular HGB Conc 30.9 g/dL (31.8-35.4); Mean Corpuscular Hemoglobin 27.3 pg (27.0-31.2); Mean Corpuscular Volume 88.3 fl (81-99); Mean Platelet Volume 9.2 fl (7.4-10.4); Monocytes # 0.3 K/mm3 (0.1-1.0); Monocytes % 5.6 % (1.7-9.3); Neutrophils # 4.4 K/mm3 (1.8-7.8); Neutrophils % 78.2 % (37.0-80.0); Platelet Count 72 K/mm3 (142-424); Red Blood Count 4.22 M/mm3 (4.20-5.40); Red Cell Distribution Width 14.7 % (11.5-17.5); White Blood Count 5.6 K/mm3 (4.8-10.8)
[2020-04-05 19:24] VITALS: BP 205/104; PULSE 105; RESP 18; O2SAT 95
--- NOTE | 2020-04-05 19:32 | PC.NURSE ---
Calling [facility] to get a hold of dr schmitz
--- NOTE | 2020-04-05 19:35 | PC.NURSE ---
Spoke with yoli at [facility] who stated she would find out who is corporate communications specialist for dr schmitz and call me back
[2020-04-05 19:42] LABS: Chloride 87 mmol/L (98-107); Potassium 3.5 mmoL/L (3.5-5.1); Sodium 135 mmol/L (136-145)
[2020-04-05 19:44] LABS: Blood Urea Nitrogen 31 mg/dl (7-17); Creatinine Clearance Estimated 18 mL/min (50-200); Estimated Glomerular Filt Rate 12 ml/min (>60); GFR (African American) 14 ML/MIN (>60)
[2020-04-05 19:45] LABS: Alanine Aminotransferase 32 U/L (12-78); Albumin Level 4.3 g/dl (3.5-5.0); Albumin/Globulin Ratio 1.3 (1.1-1.8); Alkaline Phosphatase 175 U/L (38-126); Anion Gap 17.5 mEq/L (5-15); Aspartate Amino Transferase 40 U/L (14-36); Bilirubin,Total 1.1 mg/dl (0.2-1.3); Calcium 10.2 mg/dl (8.4-10.2); Carbon Dioxide 34 mmol/L (22.0-30.0); Globulin 3.4 g/dL (1.3-3.2); Glucose 138 mg/dl (74-100); Total Protein,Serum 7.7 g/dl (6.3-8.2)
[2020-04-05 19:47] LABS: Lactic Acid 4.4 mmol/L (0.7-2.1)
--- NOTE | 2020-04-05 19:48 | PC.NURSE ---
critical creatinine of 3.8 called to Mari[facility]
--- NOTE | 2020-04-05 19:49 | ECG_ITS ---
APPROVED REPORT Exam: Resting ECG HR:101 bpm ECG Measurements Heart Rate 101 AXES AR 176 P QRSd 104 QRS 1 QT 424 T 72 QTc 549 Conclusion Sinus tachycardia with premature atrial complexes Nonspecific ST-T wave abnormalities Poor R Wave Progression Abnormal ECG Electronically signed by : Yefri Ring, 04/07/2020 17:02:01
--- NOTE | 2020-04-05 19:50 | PC.NURSE ---
critical lactic reported to Dr. Cisneros
[2020-04-05 19:51] LABS: Erythrocyte Sedimentation Rate 80 mm/hr (0-30)
[2020-04-05 19:56] LABS: Creatine Kinase 70 U/L (30-135)
[2020-04-05 19:57] VITALS: BP 198/100; PULSE 101; RESP 18; O2SAT 95
[2020-04-05 20:01] LABS: C-Reactive Protein 17.3 mg/L (0-4)
--- NOTE | 2020-04-05 20:02 | PC.NURSE ---
Called [facility] for follow up status of scientific publications editor physician for dr schmitz. Yulia from the access center stated it will be dr glasgow and he has not returned her page yet
[2020-04-05 20:07] LABS: CKMB Relative Index 1.9 U/L (0-4.0); Creatine Kinase MB 1.3 ng/ml (0.0-2.03)
--- NOTE | 2020-04-05 20:08 | CT_ITS ---
PROCEDURE: CT HUMERUS LT WO CON CLINICAL HISTORY: pain Right upper extremity pain. Arm red and swollen with bleeding in the mid umol region. COMPARISON: No exams were available for comparison TECHNIQUE: Axial images obtained with sagittal and coronal reformats. All CT scans at the facility use one or more dose reduction, viz: automated exposure control, ma/kV adjustment per patient size (including targeted exams where dose is matched to indication, i.e. head), or iterative reconstruction technique. FINDINGS: There is an old midshaft radial fracture. Skin thickening noted with subcutaneous stranding of the fat and trace amount of fluid surrounding dilated varicose vessels in the medial aspect of the right arm. No drainable fluid collection apparent. Surgical clips are present in this region. There is a hemodialysis brachiocephalic arteriovenous fistula in the right upper extremity extending from the antecubital region to the brachiocephalic area. Extensive vascular calcifications noted. Nodularity is noted in the right upper extremity as well adjacent to the shunt could be due to an aneurysm or enlarged lymph node. IMPRESSION: Status post hemodialysis fistula right upper extremity with skin thickening and subcutaneous fat stranding with trace mount of fluid with dilated varicose vessels in the medial aspect of the right arm suggestive of inflammatory changes or surrounding hemorrhage. No drainable fluid collection evident. This exam does not evaluate the integrity of the fistula which would require contrast injection or duplex sonography. 14 mm soft tissue nodule is present in the region of the fistula and could be related to an aneurysm or enlarged lymph node. Dictated by: Yonatan Lala MD 04/06/2020 15:45 Yonatan Lala MD in [place] 04/06/2020 15:45
[2020-04-05 20:10] LABS: Troponin I 0.03 ng/ml (0.00-0.034)
--- NOTE | 2020-04-05 20:18 | PC.NURSE ---
Dr Pillai calling to speak with MD for dr schmitz. Dr Vidal is no longer [employer]
[2020-04-05 20:39] LABS: Procalcitonin 0.874 ng/mL (0.0-2.0)
[2020-04-05 21:48] VITALS: BP 171/82; PULSE 101; RESP 16; TEMP 36.6; O2SAT 98
== END 2020-04-05 22:04 | disposition home or self-care (01) ==
PROVIDERS: Emergency Provider Emergency Medicine; PCP Emergency Medicine
DX: M79.601 Pain in right arm (principal); Z99.2 Dependence on renal dialysis; E11.22 Type 2 diabetes mellitus with diabetic chronic kidney disease; E11.65 Type 2 diabetes mellitus with hyperglycemia; I12.0 Hypertensive chronic kidney disease with stage 5 chronic kidney disease or end stage renal disease; N18.6 End stage renal disease; Z79.84 Long term (current) use of oral hypoglycemic drugs; I25.10 Atherosclerotic heart disease of native coronary artery without angina pectoris; I48.0 Paroxysmal atrial fibrillation; J44.9 Chronic obstructive pulmonary disease, unspecified; K21.9 Gastro-esophageal reflux disease without esophagitis; E78.5 Hyperlipidemia, unspecified; E03.9 Hypothyroidism, unspecified; Z88.0 Allergy status to penicillin; Z88.2 Allergy status to sulfonamides
CPT/HCPCS: 73200; 80053; 82550; 82553; 83605; 84145; 84484; 85025; 85651; 86140; 87040; 93005; 96374; 96375; 99284; J2405

== ENCOUNTER 2020-04-07 21:40 | Emergency (ER) | payer MEDICARE, MEDICAID, SELFPAY ==
[2020-04-07 21:40] VITALS: BP 167/85; PULSE 89; RESP 17; TEMP 36.8; O2SAT 97; BMI 28.8
--- NOTE | 2020-04-07 21:44 | ECG_ITS ---
APPROVED REPORT Exam: Resting ECG HR:89 bpm ECG Measurements Heart Rate 89 AXES RI 202 P 16 QRSd 96 QRS -20 QT 408 T 60 QTc 496 Conclusion Normal sinus rhythm Moderate voltage criteria for LVH, may be normal variant Poor r wave progression Abnormal ECG Electronically signed by : Quincy Vasquez, 04/08/2020 06:54:05
--- NOTE | 2020-04-07 22:28 | US_ITS ---
PROCEDURE: US EXTREMITY RT LIMITED Referring Doctor: Juan Jackson Patient Age:74Y CLINICAL INDICATION: right upper arm pain and swelling no injury The patient has a port in arm in this region and receives dialysis COMPARISON: CR XR SHOULDER RT MIN 2V from 07/22/2019 CR XR CHEST PORTABLE from 11/12/[address] HUMERUS LT WO CON from 04/05/2020 FINDINGS: Findings of this ultrasound and 04/05/2020 CT upper extremity were discussed with the ER physician. A venous duplex Doppler study with suggested if the patient's upper arm pain persist . Today's survey nonvascular ultrasound of the upper extremity reveals several hypoechoic ovoid structures reflecting debris-filled fluid collections with thick wall or could reflect inflamed suprative lymph nodes with hypoechoic central portion but these 3 or 4 areas are located just beneath the skin at the right upper arm and within the region of swelling and tenderness per certified neurodiagnostic technologist cc. In either case the appearance does the raise concern regarding developing inflammation and potential infection and thus close follow-up and correlation and thorough clinical evaluation: Area: 1. Largest thick-walled collection measuring 2.7 cm length x 1.1 cm AP of with some echogenic fluid like material within it.-this is labeled and moderate wall thickness but Area 2. smaller and slightly deeper with moderate diffuse wall thickening it measures 1.1 cm x 0.8 cm Area 3. Just beneath the skin measures 1.5 cm length x 0.6 cm. Moderate to generous wall thickness Area 4 was not labeled by the technologist as such, but this more clear fluid collection has thin wall and just beneath the skin with edematous changes most evident within the surrounding soft tissues about this structure. This area slightly lobulated measuring 15 mm times 7 mm on submitted images. Again the evident soft tissue edema surrounding seems to reflect more evident inflammation about this feature Yesterday CT show 3 or 4 ovoid low-density areas with some inflammatory stranding adjacent to them located just beneath the skin adjacent apparent prominent superficial vein//varicosity/vascular structure at medial aspect of the upper arm.. The certified neurodiagnostic technologist and radiology does not performed vascular imaging thus she did not not fully document flow pattern of the prominent vein in this area.. And a few of this submitted pictures are seen to be normal flow in what I suspect is this partially imaged prominent vein/varicosity; but 1 of the Doppler images raises questions regarding lack of flow. These findings discussed with ER doctor approximately 2:30 p.m.. -I suggested if patient has persistent upper extremity pain/swelling would suggest she be called back for a duplex Doppler study right upper extremity a to better exclude DVT. The patient's AV fistula as complexity to this feature and add additional caution to maintain AV fistula shunt. If there is any concern regarding patient's AV fistula, prompt referral to patients in [place] would be suggested evaluate. Also with current findings the I presume there is no evidence of other needle weaver or features in this area of the upper arm evident clinically.-No such findings were described to ER note IMPRESSION: Right upper arm ultrasound reveals hypoechoic areas which appear reflect either thick wall debris-filled inflammatory fluid collections or possibly hypoechoic suprative lymph nodes within subcutaneous tissues of upper arm.-. These are adjacent to what appears to be a prominent varicosity on prior yesterday CT upper extremity. Edema throughout immediate subcutaneous tissues of this area. . Either case findings do suggest a focal inflammatory process of
--- NOTE | 2020-04-07 22:28 | HMH.EDGENADL ---
ED Disposition Clinical Impression: Right arm pain, Supratherapeutic international normalized ratio (INR) Disposition: Home, Self-Care Condition on Discharge: Good Instructions: DI for Acute Pain -- Adult Referrals: Willie Avalos MD [Primary Care Provider] - - Critical Care Critical Care Time: No Attestation: On 04/07/20, the high probability of a clinically significant, sudden or life threatening deterioration of the following system(s) required my full and direct attention, intervention and personal management. The time I documented below is in addition to time spent performing reported procedures but includes the following listed in this critical care notation. Medical Decision Making - Medical Records Medical records reviewed: Yes: I reviewed the patient's medical records. - Black Inquiry Pt receiving controlled substance: No Vital Signs: 04/07/20 21:40 04/07/20 22:30 04/07/20 22:55 Temperature 98.2 F Temperature Source Oral Pulse Rate Pulse Rate [Right Radial] 89 88 75 Respiratory Rate 17 18 18 Blood Pressure Blood Pressure [Left Arm] 167/85 H 168/84 H 154/88 H Blood Pressure Mean [Left Arm] 112 112 110 Blood Pressure Source Blood Pressure Source [Left Arm] Automatic Cuff Blood Pressure Position Blood Pressure Position [Left Arm] Supine 02 Sat by Pulse Oximetry 97 93 L 98 Oxygen Delivery Method Room Air 04/07/20 23:30 04/08/20 00:09 04/08/20 01:00 Temperature Temperature Source Pulse Rate Pulse Rate [Right Radial] 82 78 Respiratory Rate 18 18 Blood Pressure Blood Pressure [Left Arm] 152/84 H 148/79 H Blood Pressure Mean [Left Arm] 106 102 Blood Pressure Source Blood Pressure Source [Left Arm] Blood Pressure Position Blood Pressure Position [Left Arm] 02 Sat by Pulse Oximetry 96 96 Oxygen Delivery Method Room Air 04/08/20 01:13 Temperature 97.9 F Temperature Source Oral Pulse Rate 82 Pulse Rate [Right Radial] Respiratory Rate 16 Blood Pressure 134/74 Blood Pressure [Left Arm] Blood Pressure Mean [Left Arm] Blood Pressure Source Automatic Cuff Blood Pressure Source [Left Arm] Blood Pressure Position Supine Blood Pressure Position [Left Arm] 02 Sat by Pulse Oximetry Oxygen Delivery Method Room Air - Lab Data Lab results reviewed: Yes: I reviewed the patient's lab results. Lab Results 04/07/20 23:55: PT 75.5 H, INR > 8.00 H Orders (Tests/Meds): ED MEDICATIONS Discontinued Medications Generic Name Dose Route Start Last Admin Trade Name Anoop PRN Reason Stop Dose Admin Morphine Sulfate 4 mg 04/07/20 22:32 04/07/20 22:35 Morphine 2mg/Ml Syringe IM 04/07/20 22:33 4 mg ONCE ONE Administration Phytonadione 5 mg 04/08/20 00:49 04/08/20 00:53 Phytonadione 10mg/Ml Ampule SQ 04/08/20 00:50 5 mg ONCE ONE Administration ORDERS Category Date Time Status US extremity RT limited Stat Exams 04/07/20 22:28 Taken - US Data US Images: Upper Extremity Preliminary Findings: Normal/NAD Medical Decision Narrative: Patient still complain of excessive pain in the right upper extremity where her hemodialysis catheter is placed. There is no evidence of infection with no erythema or swelling. CT of the right upper extremity was negative. No evidence of any fractures or abscess. Ultrasound of right upper extremity did not show any clotting. Also patient's INR was supratherapeutic. Patient was told to hold her Coumadin for 4 days and see her primary care she was also given 5 mg of vitamin K subcu. General Adult HPI - General Chief complaint: PAIN Stated complaint: chest pain Time Seen by Provider: 04/07/20 22:00 Mode of Arrival: EMS Source of Information: Patient Limitations: No Limitations Description of Symptoms (Recalled from ER Triage Doc. by RN): Pt c/o pain in right arm and shoulder that radiates under her right breast. Pt denies SOA, N/V/D, dizziness, recent fevers. - His
[2020-04-07 22:30] VITALS: BP 168/84; PULSE 88; RESP 18; O2SAT 93
[2020-04-07 22:55] VITALS: BP 154/88; PULSE 75; RESP 18; O2SAT 98
[2020-04-07 23:30] VITALS: BP 152/84; PULSE 82; RESP 18; O2SAT 96
[2020-04-08 00:09] VITALS: BP 148/79; PULSE 78; RESP 18; O2SAT 96
[2020-04-08 00:22] LABS: Prothrombin Time 75.5 seconds (9.4-11.8)
[2020-04-08 00:23] LABS: INR > 8.00 (0.9-1.1)
--- NOTE | 2020-04-08 00:49 | PC.NURSE ---
spoke with Darin with Pharmacy for Vitamin K dosing
[2020-04-08 01:13] VITALS: BP 134/74; PULSE 82; RESP 16; TEMP 36.6; O2SAT 92
== END 2020-04-08 01:25 | disposition home or self-care (01) ==
PROVIDERS: Emergency Provider Family Medicine; PCP Emergency Medicine
DX: M79.601 Pain in right arm (principal); N18.6 End stage renal disease; Z99.2 Dependence on renal dialysis; I48.20 Chronic atrial fibrillation, unspecified; Z79.01 Long term (current) use of anticoagulants; K21.9 Gastro-esophageal reflux disease without esophagitis; F41.8 Other specified anxiety disorders; J44.9 Chronic obstructive pulmonary disease, unspecified; I25.2 Old myocardial infarction; E03.9 Hypothyroidism, unspecified; E78.5 Hyperlipidemia, unspecified; I10 Essential (primary) hypertension; E11.9 Type 2 diabetes mellitus without complications; Z79.4 Long term (current) use of insulin; Z88.0 Allergy status to penicillin; Z88.2 Allergy status to sulfonamides; Z79.899 Other long term (current) drug therapy
CPT/HCPCS: 76882; 85610; 93005; 96372; 99284

== ENCOUNTER → 2020-04-18 00:01 | Outpatient (CLI) | payer MEDICARE, MEDICAID, SELFPAY ==
[2020-04-18 00:27] LABS: Microscopic, Urine URINE MICROSCOPIC (MICROSCOPIC)
[2020-04-18 00:36] LABS: Appearance,Urine CLOUDY (Clear); Bilirubin,Urine Negative (Negative); Blood, Urine 2+ (Negative); Color,Urine DK YELLOW (Yellow); Glucose,Urine (UA) Negative (Negative); Ketones,Urine Negative (Negative); Leukocyte Esterase,Urine 2+ (Negative); Nitrate,Urine Negative (Negative); PH,Urine 8.5 (5.0-8.5); Protein,Urine 3+ (Negative); Specific Gravity, Urine 1.025 (1.005-1.030); Urobilinogen,Urine 0.2 EU/dl (0.2)
[2020-04-18 00:42] LABS: WBC,Urine TNTC #/hpf (0-3)
== END ==
PROVIDERS: PCP Emergency Medicine; Visit Provider Emergency Medicine
DX: R10.9 Unspecified abdominal pain (principal); R30.9 Painful micturition, unspecified
CPT/HCPCS: 81001; 87086; 87186

== ENCOUNTER 2020-04-25 07:00 | Emergency (ER) | payer MEDICARE, MEDICAID, SELFPAY ==
[2020-04-25 07:00] VITALS: BP 113/90; PULSE 75; RESP 18; TEMP 37.2; O2SAT 95; BMI 29.7
--- NOTE | 2020-04-25 07:10 | XR_ITS ---
PROCEDURE: XR CHEST PORTABLE CLINICAL HISTORY: COUGHING, hemoptysis COMPARISON: CT [facility] CT CHEST W/O CONTRAST from 12/28/2014 CR XR CHEST PORTABLE from 07/22/2019 CR XR CHEST PORTABLE from 11/12/2019 CR XR CHEST PORTABLE from 03/30/2020 FINDINGS: The cardiomediastinal silhouette and pulmonary vascularity are within normal limits. Again noted the sternal wire sutures. Again noted is left atrial appendage clip in place. The lungs are clear without infiltrates, suspicious nodules, or pleural effusions. No acute bony abnormalities. Degenerative changes are again seen right shoulder with prominent subacromial stenosis as described previously. An apparent right axillary artery or vein stent in place IMPRESSION: No acute findings. Dictated by: Dr. Ashish Rubin MD 04/25/2020 08:37 Dr. Ashish Rubin MD in [place] 04/25/2020 08:37
[2020-04-25 07:22] LABS: Chloride 88 mmol/L (98-107); Potassium 3.9 mmoL/L (3.5-5.1); Sodium 133 mmol/L (136-145)
[2020-04-25 07:24] LABS: Alanine Aminotransferase 10 U/L (12-78); Aspartate Amino Transferase 28 U/L (14-36); Blood Urea Nitrogen 26 mg/dl (7-17); Creatinine Clearance Estimated 21 mL/min (50-200); Estimated Glomerular Filt Rate 14 ml/min (>60); GFR (African American) 17 ML/MIN (>60)
[2020-04-25 07:25] LABS: Albumin Level 3.5 g/dl (3.5-5.0); Albumin/Globulin Ratio 1.1 (1.1-1.8); Alkaline Phosphatase 167 U/L (38-126); Bilirubin,Total 0.7 mg/dl (0.2-1.3); Calcium 9.5 mg/dl (8.4-10.2); Globulin 3.3 g/dL (1.3-3.2); Glucose 111 mg/dl (74-100); Total Protein,Serum 6.8 g/dl (6.3-8.2)
[2020-04-25 07:28] LABS: Basophils # 0.1 K/mm3 (0-0.2); Basophils % 0.9 % (0.1-2.0); Eosinophils # 0.4 K/mm3 (0.0-0.4); Eosinophils % 7.1 % (0.1-12.0); Hematocrit 33.7 % (37.0-47.0); Hemoglobin 11.2 g/dL (12.2-16.2); Lymphocytes # 1.8 K/mm3 (0.7-4.5); Lymphocytes % 34.1 % (10-50); Mean Corpuscular HGB Conc 33.1 g/dL (31.8-35.4); Mean Corpuscular Hemoglobin 28.5 pg (27.0-31.2); Mean Corpuscular Volume 86.1 fl (81-99); Monocytes # 0.3 K/mm3 (0.1-1.0); Monocytes % 6.4 % (1.7-9.3); Neutrophils # 2.8 K/mm3 (1.8-7.8); Neutrophils % 51.6 % (37.0-80.0); Platelet Count 106 K/mm3 (142-424); Red Blood Count 3.92 M/mm3 (4.20-5.40); Red Cell Distribution Width 14.5 % (11.5-17.5); White Blood Count 5.4 K/mm3 (4.8-10.8)
[2020-04-25 07:30] VITALS: BP 140/73; PULSE 83; RESP 15; O2SAT 93
[2020-04-25 07:30] LABS: Amylase 35 U/L (30-110); Lipase 74 U/L (23-300)
[2020-04-25 07:32] LABS: Anion Gap 11.9 mEq/L (5-15); Carbon Dioxide 37 mmol/L (22.0-30.0)
[2020-04-25 07:35] LABS: INR 3.22 (0.9-1.1); Prothrombin Time 32.1 seconds (9.4-11.8)
[2020-04-25 08:00] VITALS: BP 129/73; PULSE 81; RESP 19; O2SAT 96
--- NOTE | 2020-04-25 08:06 | PC.NURSE ---
radiology at bedside
--- NOTE | 2020-04-25 08:10 | HMH.EDGENADL ---
ED Disposition Clinical Impression: Epistaxis Disposition: Home, Self-Care Condition on Discharge: Good Instructions: DI for Nosebleed Additional Instructions: Afrin nasal spray: 2 sprays in each nostril twice a day for 3 day. Additional instructions for NOSE BLEED: Avoid blowing your nose, bending forward at the waist, or straining. If nosebleed starts again, squeeze your nostrils together with thumb and forefinger for 5 minutes. If unable to stop the bleeding, return to the emergency department. Follow-up with Dr. Avalos for any further recurrences. Referrals: Willie Avalos MD [Primary Care Provider] - - Critical Care Critical Care Time: No Attestation: On 04/25/20, the high probability of a clinically significant, sudden or life threatening deterioration of the following system(s) required my full and direct attention, intervention and personal management. The time I documented below is in addition to time spent performing reported procedures but includes the following listed in this critical care notation. Medical Decision Making - Medical Records Medical records reviewed: Yes: I reviewed the patient's medical records. - Black Inquiry Pt receiving controlled substance: No Vital Signs: 04/25/20 07:00 04/25/20 07:30 04/25/20 08:00 Temperature 99 F Temperature Source Oral Pulse Rate [Radial] 75 83 81 Respiratory Rate 18 15 19 Blood Pressure [Right Arm] 113/90 140/73 129/73 Blood Pressure Mean [Right Arm] 97 95 91 Blood Pressure Source [Right Arm] Automatic Cuff Automatic Cuff Blood Pressure Position [Right Arm] Sitting Sitting Sitting 02 Sat by Pulse Oximetry 95 93 L 96 Oxygen Delivery Method Room Air Room Air Room Air 04/25/20 08:30 04/25/20 09:00 Temperature Temperature Source Pulse Rate [Radial] 80 82 Respiratory Rate 13 18 Blood Pressure [Right Arm] 146/79 H 148/80 H Blood Pressure Mean [Right Arm] 101 102 Blood Pressure Source [Right Arm] Automatic Cuff Automatic Cuff Blood Pressure Position [Right Arm] Sitting Sitting 02 Sat by Pulse Oximetry 93 L 94 L Oxygen Delivery Method Room Air Room Air - Lab Data Lab results reviewed: Yes: I reviewed the patient's lab results. Lab Results 04/25/20 07:00: WBC 5.4, RBC 3.92 L, Hgb 11.2 L, Hct 33.7 L, MCV 86.1, MCH 28.5, MCHC 33.1, RDW 14.5, Plt Count 106 L, MPV 10.0, Neut % (Auto) 51.6, Lymph % (Auto) 34.1, [place] % (Auto) 6.4, Eos % (Auto) 7.1, Baso % (Auto) 0.9, Neut # (Auto) 2.8, Lymph # (Auto) 1.8, [place] # (Auto) 0.3, Eos # (Auto) 0.4, Baso # (Auto) 0.1 04/25/20 07:00: PT 32.1 H, INR 3.22 H 04/25/20 07:00: Sodium 133 L, Potassium 3.9, Chloride 88 L, Carbon Dioxide 37 H, Anion Gap 11.9, BUN 26 H, Creatinine 3.20 H, Estimated Creat Clear 21, Estimated GFR 14 L*, Est GFR ( Amer) 17 L*, Glucose 111 H, Calcium 9.5, Total Bilirubin 0.7, AST 28, ALT 10 L, Alkaline Phosphatase 167 H, Total Protein 6.8, Albumin 3.5, Globulin 3.3 H, Albumin/Globulin Ratio 1.1 04/25/20 07:00: Amylase 35, Lipase 74 Result diagrams: 04/25/20 07:00 04/25/20 07:00 Orders (Tests/Meds): ED MEDICATIONS Discontinued Medications Generic Name Dose Route Start Last Admin Trade Name Freq PRN Reason Stop Dose Admin Oxymetazoline HCl 1 ml 04/25/20 07:51 04/25/20 07:52 Oxymetazoline Nasal [place] 0.05% 15ml NS 04/25/20 07:52 2 sprays ONCE ONE Administration - Radiology Data #1 Image(s): Chest Image Reviewed: Yes I reviewed the patient's radiology image, Yes I have reviewed radiologist's interpretation PROCEDURE: XR CHEST PORTABLE CLINICAL HISTORY: COUGHING, hemoptysis COMPARISON: CT [facility] CT CHEST W/O CONTRAST from 12/28/2014 CR XR CHEST PORTABLE from 07/22/2019 CR XR CHEST PORTABLE from 11/12/2019 CR XR CHEST PORTABLE from 03/30/2020 FINDINGS: The cardiomediastinal silhouette and pulmonary vascularity are within normal limits. Again noted the sternal wire sutures. Again noted is left atrial append
[2020-04-25 08:30] VITALS: BP 146/79; PULSE 80; RESP 13; O2SAT 93
[2020-04-25 09:00] VITALS: BP 148/80; PULSE 82; RESP 18; O2SAT 94
--- NOTE | 2020-04-25 09:30 | PC.NURSE ---
REPORT CALLED TO JOHN
--- NOTE | 2020-04-25 09:38 | PC.NURSE ---
[facility] called for transport back to [place] by Nell Oconnor
[2020-04-25 10:12] VITALS: BP 144/72; PULSE 78; RESP 16; TEMP 36.6; O2SAT 98
== END 2020-04-25 10:14 | disposition home or self-care (01) ==
PROVIDERS: Emergency Provider Emergency Medicine; PCP Emergency Medicine
DX: R04.0 Epistaxis (principal); I48.20 Chronic atrial fibrillation, unspecified; F41.8 Other specified anxiety disorders; E03.9 Hypothyroidism, unspecified; K21.9 Gastro-esophageal reflux disease without esophagitis; J44.9 Chronic obstructive pulmonary disease, unspecified; E78.5 Hyperlipidemia, unspecified; I10 Essential (primary) hypertension; I25.2 Old myocardial infarction; Z79.899 Other long term (current) drug therapy; Z88.0 Allergy status to penicillin; Z88.2 Allergy status to sulfonamides
CPT/HCPCS: 71045; 80053; 82150; 83690; 85025; 85610; 99284

== ENCOUNTER → 2020-05-16 08:37 | Outpatient (CLI) | payer MEDICARE, MEDICAID, SELFPAY ==
--- NOTE | 2020-05-16 08:42 | XR_ITS ---
PROCEDURE: XR KNEE RT 4V CLINICAL INDICATION: right knee pain; weightbearing COMPARISON: CR [id number] KNEE-3 VIEWS-LT from 09/22/2014 CR [id number] XR knee LT 3V from 09/07/2018 CR XR KNEE RT 3V from 12/21/2019 FINDINGS: There is a nondisplaced oblique fracture involving the distal femur begin and medially at the metaphyseal region extending to the intercondylar area of the articular surface of the distal femur. Calcification is present along the medial aspect of the fracture site. There is generalized vascular calcification and there are mild osteoarthritic changes. IMPRESSION: Nondisplaced oblique fracture of the distal femur with intra-articular involvement Dictated by: Yonatan Lala MD 05/16/2020 14:25 Yonatan Lala MD in [place] 05/16/2020 14:25
--- NOTE | 2020-05-16 09:30 | CT_ITS ---
PROCEDURE: CT KNEE RT WO CON CLINICAL HISTORY: evaluate for fracture, pain COMPARISON: CR XR KNEE RT 3V from 12/21/2019 CR XR CHEST PORTABLE from 04/25/2020 CR XR KNEE RT 4V from 05/16/2020 TECHNIQUE: Axial images obtained with sagittal and coronal reformats. All CT scans at the facility use one or more dose reduction, viz: automated exposure control, ma/kV adjustment per patient size (including targeted exams where dose is matched to indication, i.e. head), or iterative reconstruction technique. FINDINGS: There is diffuse demineralization of the generalized bony structures. There is an oblique fracture extending from the diaphyseal metaphyseal region the distal femur medially obliquely into the intercondylar region of the distal femur. The fracture margins are somewhat sclerotic indicating a chronic fracture which is ununited. Along the medial aspect of the fracture fragment there is some calcification. There is diffuse osteopenia. There is a small knee joint effusion with osteoarthritic changes of the knee and there is diffuse vascular calcification. 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 Osteoarthritis with knee joint effusion and osteopenia. Dictated by: Yonatan Lala MD 05/16/2020 14:07 Yonatan Lala MD in [place] 05/16/2020 14:07
== END ==
PROVIDERS: PCP Emergency Medicine; Visit Provider Orthopaedic Surgery
DX: M25.561 Pain in right knee (principal)
CPT/HCPCS: 73564; 73700

== ENCOUNTER → 2020-06-09 17:23 | Outpatient (CLI) | payer MEDICARE, MEDICAID, SELFPAY | PROVIDERS: PCP Emergency Medicine; Visit Provider Emergency Medicine | DX: U07.1 COVID-19 | CPT/HCPCS: U0003 ==

== ENCOUNTER → 2020-07-18 12:52 | Outpatient (CLI) | payer MEDICARE, MEDICAID, SELFPAY ==
--- NOTE | 2020-07-18 12:57 | XR_ITS ---
PROCEDURE: XR KNEE RT 3V CLINICAL INDICATION: rt medial condyle femur fracture fu Follow-up fracture COMPARISON: CR KNEE3L KNEE-3 VIEWS-LT from 09/22/2014 CR [id number] XR knee LT 3V from 09/07/2018 CR XR KNEE RT 3V from 12/21/2019 CR XR KNEE RT 4V from 05/16/2020 FINDINGS: Healing fracture noted the medial femoral condyle. Fracture line is less visible with bony fragments along the medial aspect of the distal femur. There is generalized vascular calcification. There is diffuse osteopenia. There are mild osteoarthritic changes involving all 3 compartments. IMPRESSION: Healing nondisplaced fracture of the medial femoral condyle Dictated by: Yonatan Lala MD 07/18/2020 14:32 Yonatan Lala MD in [place] 07/18/2020 14:32
== END ==
PROVIDERS: PCP Emergency Medicine; Visit Provider Orthopaedic Surgery
DX: G89.29 Other chronic pain (principal); M25.561 Pain in right knee; S72.433A Displaced fracture of medial condyle of unspecified femur, initial encounter for closed fracture
CPT/HCPCS: 73562

== ENCOUNTER 2020-09-19 06:28 | Day surgery (SDC) | payer MEDICARE, MEDICAID, SELFPAY ==
[2020-09-14 13:09] VITALS: BMI 28.6
[2020-09-19] VITALS (7 sets, daily range): BP systolic 117–136; BP diastolic 59–68; PULSE 79–100; RESP 16–18; TEMP 36.1–36.2; O2SAT 96–100
[2020-09-19 07:01] LABS: POC Glucose,Bedside 126 (70-110)
[2020-09-19 07:55] LABS: Coronavirus 19 IgG Antibody Positive (Negative); Coronavirus 19 IgM Antibody Negative (Negative)
--- NOTE | 2020-09-19 08:57 | SUR.PHASEII ---
REPORT CALLED TO AISLINN AT [facility] [place], VERBALIZED UNDERSTANDING OF ALL DISCHARGE INSTRUCTIONS.
== END 2020-09-19 08:45 | disposition home or self-care (01) ==
LOC: OR 06:29
PROVIDERS: PCP Emergency Medicine; Visit Provider Ophthalmology
DX: H25.813 Combined forms of age-related cataract, bilateral (principal); E11.3293 Type 2 diabetes mellitus with mild nonproliferative diabetic retinopathy without macular edema, bilateral; E78.5 Hyperlipidemia, unspecified; E03.9 Hypothyroidism, unspecified; M19.90 Unspecified osteoarthritis, unspecified site; F41.9 Anxiety disorder, unspecified; F32.9 Major depressive disorder, single episode, unspecified; I25.10 Atherosclerotic heart disease of native coronary artery without angina pectoris; J44.9 Chronic obstructive pulmonary disease, unspecified; I50.9 Heart failure, unspecified; Z88.2 Allergy status to sulfonamides; Z88.0 Allergy status to penicillin; Z91.048 Other nonmedicinal substance allergy status; Z80.9 Family history of malignant neoplasm, unspecified; Z83.3 Family history of diabetes mellitus; Z82.49 Family history of ischemic heart disease and other diseases of the circulatory system
CPT/HCPCS: 66984; 82962; 86328; V2632

== ENCOUNTER → 2020-09-30 09:30 | Outpatient (REF) | payer MEDICARE, MEDICAID, SELFPAY | LOC: LAB 09:30 | PROVIDERS: Visit Provider Emergency Medicine | DX: Z20.822 Contact with and (suspected) exposure to COVID-19 (principal); I48.91 Unspecified atrial fibrillation | CPT/HCPCS: U0003 ==

== ENCOUNTER 2020-10-03 07:46 | Day surgery (SDC) | payer MEDICARE, MEDICAID, SELFPAY ==
[2020-10-03 08:22] VITALS: BP 139/76; PULSE 82; RESP 18; TEMP 36.2; O2SAT 97; BMI 28.8
[2020-10-03 08:45] LABS: POC Glucose,Bedside 142 (70-110)
[2020-10-03 09:45] VITALS: BP 177/84; PULSE 78; RESP 16; O2SAT 92
[2020-10-03 09:50] VITALS: BP 171/90; PULSE 78; RESP 16; O2SAT 100
[2020-10-03 09:55] VITALS: BP 182/84; PULSE 78; RESP 16; O2SAT 100
[2020-10-03 10:03] VITALS: BP 161/85; PULSE 79; RESP 18; TEMP 36.6; O2SAT 99
[2020-10-03 10:35] VITALS: BP 161/85; PULSE 79; RESP 18; TEMP 36.6; O2SAT 99
== END 2020-10-03 10:35 | disposition home or self-care (01) ==
PROVIDERS: PCP Emergency Medicine; Visit Provider Ophthalmology
DX: H25.813 Combined forms of age-related cataract, bilateral (principal); E11.3293 Type 2 diabetes mellitus with mild nonproliferative diabetic retinopathy without macular edema, bilateral; Z88.0 Allergy status to penicillin; Z88.2 Allergy status to sulfonamides; Z91.048 Other nonmedicinal substance allergy status; Z79.899 Other long term (current) drug therapy; Z79.01 Long term (current) use of anticoagulants; M19.90 Unspecified osteoarthritis, unspecified site; I25.10 Atherosclerotic heart disease of native coronary artery without angina pectoris; K21.9 Gastro-esophageal reflux disease without esophagitis; E78.5 Hyperlipidemia, unspecified; E03.9 Hypothyroidism, unspecified
CPT/HCPCS: 66984; 82962; V2632

== ENCOUNTER 2020-12-10 07:02 | Emergency (ER) | payer MEDICARE, MEDICAID, SELFPAY ==
[2020-12-10 06:40] VITALS: BP 177/83; PULSE 83; RESP 18; TEMP 36.6; O2SAT 100; BMI 28.9
--- NOTE | 2020-12-10 07:13 | XR_ITS ---
PROCEDURE INFORMATION: Exam: XR Right Hip Exam date and time: 12/10/2020 7:13 AM Age: 75 years old Clinical indication: Injury or trauma; Fall; Blunt trauma (contusions or hematomas); Right; Hip TECHNIQUE: Imaging protocol: XR Right hip. Views: 2 or 3 views hip with pelvis when performed. COMPARISON: CR XR PELVIS 1-2V 07/22/2019 2:01 AM FINDINGS: Tubes, catheters and devices: Multiple pelvic surgical clips. Bones/joints: Bilateral mild femoroacetabular degenerative change. Bones appear somewhat demineralized. No acute fracture or traumatic malalignment of the pelvis or right hip. Soft tissues: Vascular calcifications are present. IMPRESSION: No acute osseous abnormality. In the setting of demineralization, nondisplaced fractures could be obscured radiographically. If there is persistent clinical concern, screening hip MRI can be performed.
--- NOTE | 2020-12-10 07:14 | CT_ITS ---
PROCEDURE INFORMATION: Exam: CT Head Without Contrast Exam date and time: 12/10/2020 7:14 AM Age: 75 years old Clinical indication: Injury or trauma; Fall; Blunt trauma (contusions or hematomas); Consciousness not specified; Additional info: ? Loc TECHNIQUE: Imaging protocol: Computed tomography of the head without contrast. Radiation optimization: All CT scans at this facility use at least one of these dose optimization techniques: automated exposure control; mA and/or kV adjustment per patient size (includes targeted exams where dose is matched to clinical indication); or iterative reconstruction. COMPARISON: CT HEAD/BRAIN WO CON 12/21/2019 9:17 AM FINDINGS: Brain: Mild generalized cerebral volume loss and mild patchy white matter hypoattenuation, commonly secondary to chronic small vessel ischemic change. Mild intracranial atherosclerosis. No acute intracranial hemorrhage or evidence of acute ischemic infarction within constraints of limited axial single planar imaging technique. Cerebral ventricles: No ventriculomegaly. Paranasal sinuses: Mild paranasal sinus mucosal thickening. Mastoid air cells: Visualized mastoid air cells are well aerated. Orbital cavity: Bilateral lens replacements. Bones/joints: No acute fracture. Soft tissues: Small right frontal scalp hematoma. IMPRESSION: 1. No acute intracranial abnormality. Small right frontal scalp hematoma. 2. Note that the technologist reports that this clinical site is unable to provide multiplanar reconstructions for head CTs, which reduces sensitivity in detecting small bleeds, small infarctions, and nondisplaced calvarial fractures.
--- NOTE | 2020-12-10 07:15 | CT_ITS ---
PROCEDURE INFORMATION: Exam: CT Cervical Spine Without Contrast Exam date and time: 12/10/2020 7:15 AM Age: 75 years old Clinical indication: Injury or trauma; Fall; Blunt trauma TECHNIQUE: Imaging protocol: Computed tomography images of the cervical spine without contrast. Radiation optimization: All CT scans at this facility use at least one of these dose optimization techniques: automated exposure control; mA and/or kV adjustment per patient size (includes targeted exams where dose is matched to clinical indication); or iterative reconstruction. COMPARISON: CT CERVICAL SPINE WO CON 07/22/2019 1:42 AM FINDINGS: Bones/joints: No acute cervical spine fracture or traumatic malalignment. Discs/Spinal canal/Neural foramina: Multilevel degenerative change including large posterior disc osteophyte complexes with at least moderate spinal canal narrowing at C3-C4, C4-C5, and C5-C6. Multilevel severe degenerative disc disease. Lungs: Lung apices are normal. Vasculature: Scattered atherosclerotic calcifications. Soft tissues: Unremarkable. IMPRESSION: No acute cervical spine fracture or traumatic malalignment.
--- NOTE | 2020-12-10 07:17 | XR_ITS ---
PROCEDURE INFORMATION: Exam: XR Chest Exam date and time: 12/10/2020 7:17 AM Age: 75 years old Clinical indication: Injury or trauma; Fall; Blunt trauma (contusions or hematomas) TECHNIQUE: Imaging protocol: XR of the chest. Views: 1 view. COMPARISON: CR XR CHEST PORTABLE 04/25/2020 8:18 AM FINDINGS: Median sternotomy changes with multiple mediastinal surgical clips. Cardiac silhouette is stable. Lungs are hyperinflated similar to prior. Increased reticular markings bilaterally with no focal consolidation. No pleural effusion or pneumothorax. No appreciable displaced fractures allowing for underpenetrated portable technique. IMPRESSION: No acute traumatic findings allowing for portable technique.
[2020-12-10 08:00] VITALS: BP 186/87; PULSE 80; RESP 20; O2SAT 98
--- NOTE | 2020-12-10 08:11 | [facility].EDGENADL ---
ED Disposition Clinical Impression: Forehead contusion Qualifiers: Encounter type: initial encounter Qualified Code(s): S00.83XA - Contusion of other part of head, initial encounter Contusion of right hip Qualifiers: Encounter type: initial encounter Qualified Code(s): S70.01XA - Contusion of right hip, initial encounter Fall from bed Qualifiers: Encounter type: initial encounter Qualified Code(s): W06.XXXA - Fall from bed, initial encounter Disposition: Home, Self-Care Condition on Discharge: Good Instructions: DI for Closed Head Injury Additional Instructions: Additional instructions for HEAD INJURY:See your physician as soon as possible for further evaluation. Return immediately if severe headache, vomiting, problems with vision or speech, numbness or weakness of the extremities, or severe neck pain. Referrals: Willie Avalos MD [Primary Care Provider] - - Critical Care Critical Care Time: No Attestation: On 12/10/20, the high probability of a clinically significant, sudden or life threatening deterioration of the following system(s) required my full and direct attention, intervention and personal management. The time I documented below is in addition to time spent performing reported procedures but includes the following listed in this critical care notation. Medical Decision Making - Black Inquiry Pt receiving controlled substance: No Vital Signs: 12/10/20 06:40 12/10/20 08:00 12/10/20 08:31 Temperature 97.8 F Temperature Source Oral Pulse Rate 80 83 Pulse Rate [Radial] 83 Respiratory Rate 18 20 Blood Pressure 186/87 H 147/82 H Blood Pressure [Right Arm] 177/83 H Blood Pressure Mean 120 107 Blood Pressure Mean [Right Arm] 114 Blood Pressure Source Blood Pressure Position Blood Pressure Position [Right Arm] Sitting 02 Sat by Pulse Oximetry 100 98 99 Oxygen Delivery Method Room Air 12/10/20 08:59 12/10/20 10:17 Temperature 97.8 F Temperature Source Oral Pulse Rate 72 83 Pulse Rate [Radial] Respiratory Rate 18 16 Blood Pressure 155/84 H 196/93 H Blood Pressure [Right Arm] Blood Pressure Mean 107 Blood Pressure Mean [Right Arm] Blood Pressure Source Automatic Cuff Blood Pressure Position Sitting Blood Pressure Position [Right Arm] 02 Sat by Pulse Oximetry 98 Oxygen Delivery Method Room Air - Radiology Data #1 Image(s): Chest, Hip Image Reviewed: Yes I reviewed the patient's radiology image, Yes I have reviewed radiologist's interpretation PROCEDURE INFORMATION: Exam: XR Chest Exam date and time: 12/10/2020 7:17 AM Age: 75 years old Clinical indication: Injury or trauma; Fall; Blunt trauma (contusions or hematomas) TECHNIQUE: Imaging protocol: XR of the chest. Views: 1 view. COMPARISON: CR XR CHEST PORTABLE 04/25/2020 8:18 AM FINDINGS: Median sternotomy changes with multiple mediastinal surgical clips. Cardiac silhouette is stable. Lungs are hyperinflated similar to prior. Increased reticular markings bilaterally with no focal consolidation. No pleural effusion or pneumothorax. No appreciable displaced fractures allowing for underpenetrated portable technique. IMPRESSION: No acute traumatic findings allowing for portable technique. EDURE INFORMATION: Exam: XR Right Hip Exam date and time: 12/10/2020 7:13 AM Age: 75 years old Clinical indication: Injury or trauma; Fall; Blunt trauma (contusions or hematomas); Right; Hip TECHNIQUE: Imaging protocol: XR Right hip. Views: 2 or 3 views hip with pelvis when performed. COMPARISON: CR XR PELVIS 1-2V 07/22/2019 2:01 AM FINDINGS: Tubes, catheters and devices: Multiple pelvic surgical clips. Bones/joints: Bilateral mild femoroacetabular degenerative change. Bones appear somewhat demineralized. No acute fracture or traumatic malalignment of the pelvis o
[2020-12-10 08:31] VITALS: BP 147/82; PULSE 83; O2SAT 99
[2020-12-10 08:59] VITALS: BP 155/84; PULSE 72; RESP 18; O2SAT 98
[2020-12-10 10:17] VITALS: BP 196/93; PULSE 83; RESP 16; TEMP 36.6; O2SAT 97
--- NOTE | 2020-12-10 10:43 | PC.NURSE ---
Report called to [facility] Kira Tam RN about patient condition and that we will be transporting her by ambulance within the hour
== END 2020-12-10 10:52 | disposition home or self-care (01) ==
PROVIDERS: Emergency Provider Emergency Medicine; PCP Emergency Medicine
DX: S00.83XA Contusion of other part of head, initial encounter (principal); S70.01XA Contusion of right hip, initial encounter; W06.XXXA Fall from bed, initial encounter; Y92.122 Bedroom in nursing home as the place of occurrence of the external cause; I48.0 Paroxysmal atrial fibrillation; I25.10 Atherosclerotic heart disease of native coronary artery without angina pectoris; J44.9 Chronic obstructive pulmonary disease, unspecified; I50.9 Heart failure, unspecified; E11.22 Type 2 diabetes mellitus with diabetic chronic kidney disease; I12.0 Hypertensive chronic kidney disease with stage 5 chronic kidney disease or end stage renal disease; N18.6 End stage renal disease; F17.210 Nicotine dependence, cigarettes, uncomplicated; Z99.2 Dependence on renal dialysis; E03.9 Hypothyroidism, unspecified; Z88.0 Allergy status to penicillin; Z88.2 Allergy status to sulfonamides; Z91.040 Latex allergy status; Z79.899 Other long term (current) drug therapy
CPT/HCPCS: 70450; 71045; 72125; 73502; 99283

== ENCOUNTER → 2021-01-09 09:24 | Outpatient (CLI) | payer MEDICARE, MEDICAID, SELFPAY ==
--- NOTE | 2021-01-09 09:28 | US_ITS ---
PROCEDURE: US PELVIC CLINICAL INDICATION: POST MENOPAUSAL VAGINAL BLEEDING COMPARISON: CT ABDPELWO CT abdomen pelvis wo con from 09/07/2018 FINDINGS: Exam is very limited due to incomplete filling of the urinary bladder. What appears to represent the uterus is 5 x 3.7 cm with calcification noted in the uterus. The endometrium is not identified. The ovaries are not identified. IMPRESSION: Very limited study with senescent calcification of a small uterus. Dictated by: Yonatan Lala MD 01/09/2021 17:48 Yonatan Lala MD in [facility] 01/09/2021 17:48
== END ==
PROVIDERS: PCP Emergency Medicine; Visit Provider Nurse Practitioner Family
DX: N95.0 Postmenopausal bleeding (principal)
CPT/HCPCS: 76856

== ENCOUNTER → 2021-01-23 13:43 | Outpatient (CLI) | payer MEDICARE, MEDICAID, SELFPAY ==
--- NOTE | 2021-01-23 14:35 | US_ITS ---
PROCEDURE: US TRANSVAGINAL CLINICAL INDICATION: Postmenopausal bleeding COMPARISON: CT ABDPELWO CT abdomen pelvis wo con from 09/04/[address] abdomen pelvis wo con from 09/07/2018 US US PELVIC from 01/09/2021 FINDINGS: The uterus measures 5 x 3 x 5 cm with numerous calcifications. Endometrial stripe not identified. The left ovary is 2 x 2 x 2 cm and has an unremarkable appearance. Images submitted demonstrates a complex cystic structure in the right adnexal region with internal septations. This measures 7 x 7 cm. It was uncertain whether this represented a cystic adnexal mass or part of the urinary bladder extending to the right adnexal region. Suggest CT of the abdomen and pelvis with IV and oral contrast with delayed images. No ascites apparent. IMPRESSION: Complex cystic right adnexal mass versus artifact from the urinary bladder. Suggest CT of the abdomen pelvis with IV and oral contrast with delayed images for further evaluation. Dictated by: Yonatan Lala MD 01/23/2021 17:40 Yonatan Lala MD in [facility] 01/23/2021 17:40
== END ==
PROVIDERS: PCP Emergency Medicine; Visit Provider Nurse Practitioner Obstetrics & Gynecology
DX: N95.0 Postmenopausal bleeding (principal)
CPT/HCPCS: 76830

== ENCOUNTER → 2021-02-01 09:33 | Outpatient (CLI) | payer MEDICARE, MEDICAID, SELFPAY ==
--- NOTE | 2021-02-01 09:33 | CT_ITS ---
PROCEDURE: CT ABDOMEN PELVIS WO CON CLINICAL INDICATION: postmenopausal bleeding,complex cystic structure COMPARISON: CT ABDPELWO CT abdomen pelvis wo con from 09/07/2018 US US TRANSVAGINAL from 01/23/2021 TECHNIQUE: Axial images obtained with sagittal and coronal reformats. All CT scans at the facility use one or more dose reduction, viz: automated exposure control, ma/kV adjustment per patient size (including targeted exams where dose is matched to indication, i.e. head), or iterative reconstruction technique. FINDINGS: There is coronary artery calcification. There has been a prior CABG. Pneumobilia is noted. Patient has had a prior cholecystectomy. The spleen and adrenal glands have an unremarkable appearance. A coarse calcification is present involving the right kidney inferiorly and anteriorly there is a small left renal cyst at 1.5 cm laterally. No renal calculi or ureteral calculi. The pancreas is atrophic. No intestinal obstruction or free air. There is colonic diverticulosis but no evidence of diverticulitis. Previous ultrasound suggested the possibility of a cystic adnexal mass. IV contrast could not be utilized due to patient's renal status. No cystic adnexal mass is evident. The previously noted abnormality may have been due to an expanded urinary bladder with internal debris. The urinary bladder is decompressed with bladder wall thickening. Of note, there is an air-fluid level within the uterus. This is of unknown etiology. Has the patient had a recent D&C or other surgery? Uterine abscess or interior uterine fistula could cause this finding. Necrotic uterine mass is an additional consideration. There is lumbar scoliosis convex right IMPRESSION: 1. No evidence of cystic adnexal mass. Previously noted ultrasound abnormality likely related to distended urinary bladder. 2. Prominent air-fluid level within the uterus which could be due to recent surgery, abscess, necrotic uterine mass, or an indoor uterine fistula. Please correlate with clinical parameters. Gynecological consult suggested. Dictated by: Yonatan Lala MD 02/01/2021 16:35 Yonatan Lala MD in [facility] 02/01/2021 16:35
== END ==
PROVIDERS: PCP Emergency Medicine; Visit Provider Nurse Practitioner Obstetrics & Gynecology
DX: N95.0 Postmenopausal bleeding (principal); N83.8 Other noninflammatory disorders of ovary, fallopian tube and broad ligament
CPT/HCPCS: 74176